=== PATIENT | female | born 1940 | race African-American/Black ===

== ENCOUNTER 2017-02-24 16:05 | Inpatient (IN) | payer OTHER, MEDICAID ==
[~2017-02-24] VITALS: Ht 162.6 cm; Wt 75.0 kg
[~2017-02-24 16:05] MED LIST: BRIM5DRO EACHEYE; DEXT15SY3 PO; DORZ10DR7 EACHEYE; FERR325T41 PO; FOLI-43 PO; LEVO100T9 PO; LIP40 PO; LOTE5DRO5 EACHEYE; NICO1PAT15 TD; OMEP40CA34 PO; RANI150T7 PO; TRAV5DRO4 OP
[2017-02-24] MEDS ORDERED: METHYLPREDNISOLONE SOD SUCC 125 MG/2 ML VIAL IV STA (17:13)
[2017-02-24] MEDS ORDERED: IPRATROPIUM BROMIDE (0.02%) 0.5MG/2.5ML NEB HHN STA (17:13)
[2017-02-24] MEDS ORDERED: ASPIRIN 81MG TABLET PO STA (17:13)
[2017-02-24] MEDS ORDERED: ALBUTEROL (0.083%) 2.5MG/3ML NEB HHN STA (17:13)
[2017-02-24] MEDS ORDERED: LEVOFLOXACIN 750MG PREMIX 150 ML IV ONE (17:15)
[2017-02-24 18:03] LABS: HEMATOCRIT. 36.6 % (36.0-48.0); HEMOGLOBIN. 11.8 g/dL (12.0-16.0); MEAN CORPUSCULAR HEMOGLOBIN 27.2 pg (28.0-32.0); MEAN CORPUSCULAR HGB CONC 32.2 g/dL (31.0-37.0); MEAN CORPUSCULAR VOLUME 84.6 fL (81.0-99.0); MEAN PLATELET VOLUME 9.1 fl (7.4-10.4); PLATELET 148 x1000/uL (130-400); RED BLOOD CELL COUNT 4.33 mill/uL (4.2-5.4); RED CELL DISTRIBUTION WIDTH 15.4 % (11.6-14.6); WHITE BLOOD COUNT 3.1 x1000/uL (4.5-11.0)
[2017-02-24 18:09] LABS: PARTIAL THROMBOPLASTIN TIME 27.3 sec (24.0-34.0); PROTHROMBIN TIME 10.8 sec
[2017-02-24 18:13] LABS: DIFFERENTIAL COMMENT 1
[2017-02-24 18:14] LABS: ALANINE AMINOTRANSFERASE 16 IU/L (13-61); ALBUMIN 3.3 g/dL (3.4-5.0); ANION GAP 11; CALCIUM 8.1 mg/dL (8.5-10.1); CARBON DIOXIDE 32 mEq/L (21-32); CHLORIDE 102 mEq/L (98-107); INDEX HEMOLYSI 1 (1-3); INDEX ICTERIC 1 (1-4); INDEX LIPEMIC 1 (1-3); LIPASE 194 IU/L (73-393); UREA NITROGEN BLOOD 18 mg/dL (7-21)
[2017-02-24 18:16] LABS: eGFR 53 mL/min (>60)
[2017-02-24 18:18] LABS: CREATINE KINASE 176 IU/L (26-192)
[2017-02-24 18:19] LABS: NT PRO B-TYPE NATRIURETIC PEP 134 pg/mL (5-125); TROPONIN I < 0.02 ng/mL (0.00-0.04)
[2017-02-24 18:33] LABS: BG BASE EXCESS -0.6 mmol/L (-2.0-2.0); BG CARBOXYHEMOGLOBIN 0.3 % (0.5-1.5); BG DEOXYHEMOGLOBIN 6.1 % (0.0-5.0); BG FRACTION INSPIRED OXYGEN 28; BG HCO3 ACT 25.6 mmol/L (22.0-26.0); BG METHEMOGLOBIN 0.3 % (0.0-1.5); BG OXYGEN SATURATION 93.9 % (92.0-98.5); BG OXYHEMOGLOBIN 93.3 % (94.0-97.0); BG PCO2 48.9 mmHg (35.0-45.0); BG PH 7.337 (7.350-7.450); BG PO2 74.4 mmHg (75.0-100.0); BG SAMPLE SITE RIGHT BRACHIAL; BG TOTAL HEMOGLOBIN 12.2 g/dL (12.0-18.0); BG VENT MODE NASAL CANNULA
[2017-02-24 19:48] LABS: PLATELET ESTIMATE NORMAL
[2017-02-24 19:49] LABS: ANISOCYTOSIS 1+; HYPOCHROMASIA 1+
[2017-02-24] MEDS ORDERED: FUROSEMIDE 20MG/2ML VIAL IVP ONE (20:15)
[2017-02-25] VITALS (7 sets, daily range): BP systolic 111–146; BP diastolic 58–80
[2017-02-25] MEDS ORDERED: IPRATROPIUM/ALBUTEROL 0.5-3(2.5)MG/3ML NEB INH PRN (01:00)
[2017-02-25] MEDS ORDERED: ONDANSETRON HCL 4MG/2ML VIAL IV PRN (01:00)
[2017-02-25] MEDS ORDERED: CLONIDINE 0.1MG TABLET PO PRN (01:00)
[2017-02-25] MEDS ORDERED: MAGNESIUM/ALUMINUM HYDROXIDE/SIMETHICONE 30ML UDC PO PRN (01:00)
[2017-02-25] MEDS ORDERED: VALS40TA4 PO (01:37)
[2017-02-25] MEDS ORDERED: TIMO15DR12 EACHEYE (01:41)
[2017-02-25] MEDS ORDERED: LATA2.5D2 EACHEYE (01:45)
[2017-02-25 06:04] LABS: CLARITY URINE CLEAR (CLEAR); COLOR URINE YELLOW (YELLOW); GLUCOSE URINE TRACE (NEGATIVE); KETONES URINE NEGATIVE (NEGATIVE); LEUKOCYTE ESTERASE URINE NEGATIVE (NEGATIVE); NITRITE URINE NEGATIVE (NEGATIVE); OCCULT BLOOD URINE NEGATIVE (NEGATIVE); PROTEIN URINE NEGATIVE (NEGATIVE); SPECIFIC GRAVITY URINE 1.013 (1.005-1.030); UROBILINOGEN URINE 0.2 E.U./dL (0.2-1.0)
[2017-02-25 06:05] LABS: BACTERIA URINE NONE SEEN; CALCIUM PHOSPHATE CRYSTALS UR NONE SEEN /lpf; RBC URINE NONE SEEN /hpf (0-2); SQUAMOUS EPITHELIAL CELL URINE NONE SEEN /lpf (RARE/1+); WAXY CASTS URINE NONE SEEN /lpf; WBC URINE NONE SEEN /hpf (0-2); YEAST URINE NONE SEEN
[2017-02-25 06:22] LABS: *AMPHETAMINES SCREEN URINE NEGATIVE (NEGATIVE); *BARBITURATES SCREEN URINE NEGATIVE (NEGATIVE); *BENZODIAZEPINES SCREEN URINE NEGATIVE (NEGATIVE); *COCAINE SCREEN URINE NEGATIVE (NEGATIVE); CANNABINOID URINE SCREEN NEGATIVE (NEGATIVE); ECSTASY MDMA SCREEN URINE NEGATIVE (NEGATIVE); METHADONE URINE SCREEN NEGATIVE (NEGATIVE); OPIATES URINE SCREEN PRESUMTIVE POSITIVE (NEGATIVE); PHENCYCLIDINE URINE SCREEN NEGATIVE (NEGATIVE)
[2017-02-25 06:37] LABS: BASOPHILS % 0.4 % (0.0-2.0); EOSINOPHILS % 0.1 % (0.0-5.0); HEMATOCRIT. 38.6 % (36.0-48.0); HEMOGLOBIN. 12.5 g/dL (12.0-16.0); LYMPHOCYTES % 15.4 % (20.0-50.0); MEAN CORPUSCULAR HEMOGLOBIN 27.4 pg (28.0-32.0); MEAN CORPUSCULAR HGB CONC 32.4 g/dL (31.0-37.0); MEAN CORPUSCULAR VOLUME 84.6 fL (81.0-99.0); MEAN PLATELET VOLUME 9.6 fl (7.4-10.4); MONOCYTES % 3.4 % (2.0-8.0); NEUTROPHILS % 80.7 % (40.0-76.0); PLATELET 157 x1000/uL (130-400); RED BLOOD CELL COUNT 4.56 mill/uL (4.2-5.4); RED CELL DISTRIBUTION WIDTH 15.5 % (11.6-14.6); WHITE BLOOD COUNT 2.6 x1000/uL (4.5-11.0)
[2017-02-25 06:43] LABS: CHLORIDE 102 mEq/L (98-107); INDEX HEMOLYSI 1 (1-3); INDEX ICTERIC 1 (1-4); INDEX LIPEMIC 1 (1-3)
[2017-02-25 07:50] LABS: ANION GAP 15; CALCIUM 8.6 mg/dL (8.5-10.1); CARBON DIOXIDE 28 mEq/L (21-32); CREATINE KINASE 177 IU/L (26-192); CREATINE KINASE MB FRACTION 0.8 ng/mL (0.5-3.6); HDL CHOLESTEROL 59 mg/dL (40-59); LDL CHOLESTEROL 84 mg/dL (5-100); TRIGLYCERIDE 53 mg/dL (0-150); TROPONIN I < 0.02 ng/mL (0.00-0.04); UREA NITROGEN BLOOD 21 mg/dL (7-21); eGFR 53 mL/min (>60)
[2017-02-25] MEDS ORDERED: FUROSEMIDE 20MG/2ML VIAL IV SCH (09:00)
[2017-02-25] MEDS: AZITHROMYCIN 500 MG TABLET PO SCH (09:39)
[2017-02-25] MEDS: ENOXAPARIN 40MG/0.4ML SYR SUBCUT SCH (09:39)
[2017-02-25] MEDS ORDERED: IPRATROPIUM/ALBUTEROL 0.5-3(2.5)MG/3ML NEB HHN PRN (14:30)
[2017-02-25] MEDS ORDERED: LORAZEPAM 2MG/ML CPJ IV PRN (14:45)
[2017-02-25] MEDS ORDERED: NICOTINE 21MG PATCH TD NR (15:00)
[2017-02-25] MEDS ORDERED: DEXTROMETHORPHAN HBR PO PRN (20:00)
[2017-02-25] MEDS ORDERED: GUAIFENESIN 200MG/10ML SUGAR FREE UDC PO PRN (20:15)
[2017-02-25] MEDS ORDERED: FAMOTIDINE 20MG/2ML VIAL IV SCH (21:00)
[2017-02-25] MEDS ORDERED: MEDICATION NOT ON FORMULARY EA (Ranitidine Hcl 150 MG) PO SCH (21:00)
[2017-02-25] MEDS: ATORVASTATIN CALCIUM 40MG TABLET PO SCH (21:26)
[2017-02-25] MEDS: FLUTICASONE PROPIONATE 50MCG/SPRAY BOTTLE BOTHNSTRLS SCH (21:29)
[2017-02-25] MEDS: FAMOTIDINE 20MG/2ML VIAL IV SCH (21:29)
[2017-02-25] MEDS: LATANOPROST 0.005% OPHTH DROPS 2.5ML EACHEYE SCH (21:31)
[2017-02-25 22:02] LABS: CREATINE KINASE 219 IU/L (26-192); CREATINE KINASE MB FRACTION 1.8 ng/mL (0.5-3.6); INDEX HEMOLYSI 2 (1-3); TROPONIN I < 0.02 ng/mL (0.00-0.04)
[2017-02-26] VITALS: BP 118/60
[2017-02-26] MEDS: IPRATROPIUM/ALBUTEROL 0.5-3(2.5)MG/3ML NEB HHN SCH ×4 (01:12→20:11)
[2017-02-26 04:00] VITALS: BP 109/58
[2017-02-26] MEDS ORDERED: PHENYLEPHRINE/SHK LV/MO/PET,WH RECTAL OINT 30GM PR PRN (06:15)
[2017-02-26] MEDS: LEVOTHYROXINE SODIUM 100MCG TABLET PO SCH (06:19)
[2017-02-26 08:00] VITALS: BP 135/66
[2017-02-26] MEDS: MULTIVITAMINS,THER W-MINERALS TABLET PO SCH (08:01)
[2017-02-26] MEDS: FERROUS SULFATE 325MG TABLET PO SCH ×3 (08:01→17:40)
[2017-02-26] MEDS: AZITHROMYCIN 500 MG TABLET PO SCH (08:02)
[2017-02-26] MEDS: FOLIC ACID 1MG TABLET PO SCH (08:02)
[2017-02-26] MEDS: THIAMINE HCL 100MG TABLET PO SCH (08:02)
[2017-02-26] MEDS: FLUTICASONE PROPIONATE 50MCG/SPRAY BOTTLE BOTHNSTRLS SCH ×2 (08:02→20:08)
[2017-02-26] MEDS: DORZOLAMIDE 2% OPHTH 10 ML BOTTLE EACHEYE SCH ×2 (08:03→17:41)
[2017-02-26] MEDS: NICOTINE 21MG PATCH TD SCH (08:03)
[2017-02-26] MEDS: BRIMONIDINE 0.2% OPHTH DROPS 5ML EACHEYE SCH ×2 (08:03→17:41)
[2017-02-26] MEDS: TIMOLOL MALEATE 0.5% OPHTH DROPS 5ML EACHEYE SCH ×2 (08:03→17:42)
[2017-02-26] MEDS: ENOXAPARIN 40MG/0.4ML SYR SUBCUT SCH (08:04)
[2017-02-26] MEDS: BUDESONIDE 0.5MG/2ML NEB HHN SCH ×2 (08:13→20:11)
[2017-02-26] MEDS ORDERED: TRAVOPROST OP SCH (09:00)
[2017-02-26] MEDS ORDERED: VALSARTAN 40 MG PO SCH (09:00)
[2017-02-26] MEDS ORDERED: LOTEPREDNOL ETABONATE EACHEYE SCH (09:00)
[2017-02-26] MEDS ORDERED: MEDICATION NOT ON FORMULARY EA (Omeprazole 40 MG) PO SCH (09:00)
[2017-02-26] MEDS ORDERED: FOLIC ACID 1MG TABLET PO SCH (09:00)
[2017-02-26] MEDS ORDERED: GUAIFENESIN/CODEINE 200-20MG/10ML UDC PO PRN (11:45)
[2017-02-26 12:00] VITALS: BP 114/70
[2017-02-26] MEDS ORDERED: AZITHROMYCIN 500 MG TABLET PO SCH (13:00)
[2017-02-26 16:00] VITALS: BP 122/75
[2017-02-26] MEDS: OSELTAMIVIR PHOSPHATE 6 MG/1 ML PO SCH ×2 (17:40→23:00)
[2017-02-26 20:00] VITALS: BP_SYST 124; BP_SYST 126; BP_DIAS 72; BP_DIAS 88
[2017-02-26] MEDS: FAMOTIDINE 20MG/2ML VIAL IV SCH (20:08)
[2017-02-26] MEDS: LATANOPROST 0.005% OPHTH DROPS 2.5ML EACHEYE SCH (20:08)
[2017-02-26] MEDS: ATORVASTATIN CALCIUM 40MG TABLET PO SCH (20:08)
[2017-02-26] MEDS ORDERED: OSELTAMIVIR 75MG CAPSULE PO SCH (21:00)
[2017-02-26] MEDS: ACETAMINOPHEN 325MG TABLET PO PRN (21:27)
[2017-02-27] VITALS: BP 143/72
[2017-02-27] MEDS: IPRATROPIUM/ALBUTEROL 0.5-3(2.5)MG/3ML NEB HHN SCH ×3 (00:24→13:19)
[2017-02-27] MEDS: ACETAMINOPHEN 325MG TABLET PO PRN ×2 (03:21→13:24)
[2017-02-27 04:00] VITALS: BP 147/87
[2017-02-27] MEDS: LEVOTHYROXINE SODIUM 100MCG TABLET PO SCH (06:05)
[2017-02-27 06:54] LABS: HEMATOCRIT. 38.9 % (36.0-48.0); HEMOGLOBIN. 12.4 g/dL (12.0-16.0); MEAN CORPUSCULAR HEMOGLOBIN 27.3 pg (28.0-32.0); MEAN CORPUSCULAR VOLUME 85.4 fL (81.0-99.0); MEAN PLATELET VOLUME 10.2 fl (7.4-10.4); PLATELET 155 x1000/uL (130-400); RED BLOOD CELL COUNT 4.55 mill/uL (4.2-5.4); RED CELL DISTRIBUTION WIDTH 15.4 % (11.6-14.6); WHITE BLOOD COUNT 3.1 x1000/uL (4.5-11.0)
[2017-02-27 07:09] LABS: CALCIUM 8.7 mg/dL (8.5-10.1)
[2017-02-27 07:23] LABS: DIFFERENTIAL COMMENT 1
[2017-02-27 08:00] VITALS: BP 152/78
[2017-02-27] MEDS: BUDESONIDE 0.5MG/2ML NEB HHN SCH (08:23)
[2017-02-27] MEDS: THIAMINE HCL 100MG TABLET PO SCH (08:25)
[2017-02-27] MEDS: FERROUS SULFATE 325MG TABLET PO SCH ×3 (08:26→17:31)
[2017-02-27] MEDS: AZITHROMYCIN 500 MG TABLET PO SCH (08:26)
[2017-02-27] MEDS: ENOXAPARIN 40MG/0.4ML SYR SUBCUT SCH (08:26)
[2017-02-27] MEDS: MULTIVITAMINS,THER W-MINERALS TABLET PO SCH (08:26)
[2017-02-27] MEDS: FOLIC ACID 1MG TABLET PO SCH (08:26)
[2017-02-27] MEDS: BRIMONIDINE 0.2% OPHTH DROPS 5ML EACHEYE SCH ×2 (08:27→17:32)
[2017-02-27] MEDS: TIMOLOL MALEATE 0.5% OPHTH DROPS 5ML EACHEYE SCH ×2 (08:27→17:32)
[2017-02-27] MEDS: FLUTICASONE PROPIONATE 50MCG/SPRAY BOTTLE BOTHNSTRLS SCH (08:27)
[2017-02-27] MEDS: DORZOLAMIDE 2% OPHTH 10 ML BOTTLE EACHEYE SCH ×2 (08:27→17:32)
[2017-02-27] MEDS: OSELTAMIVIR PHOSPHATE 6 MG/1 ML PO SCH (08:31)
[2017-02-27 12:00] VITALS: BP 135/56
[2017-02-27] MEDS: NICOTINE 21MG PATCH TD SCH (12:18)
[2017-02-27] MEDS ORDERED: HYDROCODONE/ACETAMINOPHEN 5/325MG TABLET PO PRN (13:30)
[2017-02-27 16:00] VITALS: BP 126/56
[2017-02-27] MEDS ORDERED: LOTEMAX EYE EACHEYE SCH (17:00)
[2017-02-27 17:15] VITALS: BP 123/56
[2017-02-27 21:50] LABS: ATYPICAL LYMPHOCYTES 1; PLATELET ESTIMATE NORMAL
== END 2017-02-27 18:54 | disposition home or self-care (01) | DRG 193 ==
LOC: ER 16:05 → 5WST 21:09
PROVIDERS: ADMIT Internal Medicine; ATTEND Internal Medicine
DX: J10.1 Influenza due to other identified influenza virus with other respiratory manifestations (principal); J96.00 Acute respiratory failure, unspecified whether with hypoxia or hypercapnia; R65.10 Systemic inflammatory response syndrome (SIRS) of non-infectious origin without acute organ dysfunction; J44.9 Chronic obstructive pulmonary disease, unspecified; D64.9 Anemia, unspecified; E03.9 Hypothyroidism, unspecified; E78.00 Pure hypercholesterolemia, unspecified; E78.5 Hyperlipidemia, unspecified; F17.210 Nicotine dependence, cigarettes, uncomplicated; F10.10 Alcohol abuse, uncomplicated; M25.562 Pain in left knee; H40.9 Unspecified glaucoma; I11.0 Hypertensive heart disease with heart failure; I50.9 Heart failure, unspecified; Z88.9 Allergy status to unspecified drugs, medicaments and biological substances; Z88.2 Allergy status to sulfonamides; Z88.8 Allergy status to other drugs, medicaments and biological substances; Z88.0 Allergy status to penicillin; Z91.013 Allergy to seafood; Z79.899 Other long term (current) drug therapy
CPT/HCPCS: 36415; 36600; 71010; 80048; 80053; 80061; 80305; 81001; 82375; 82550; 82553; 82805; 83605; 83690; 83880; 84443; 84484; 85025; 85610; 85730; 87040; 87070; 87430; 87804; 93005; 93306; 93970; 94640; 94664; 96365; 96366; 96375; 97162; 99285; J1650; J1940; J1956; J2930; J3490; J7611; J7620; J7626

== ENCOUNTER 2017-05-09 19:34 | Emergency (ER) | payer OTHER, MEDICAID ==
[~2017-05-09] VITALS: Ht 162.6 cm; Wt 75.0 kg
[~2017-05-09 19:34] MED LIST changes: +LATA2.5D2 EACHEYE; +TIMO15DR12 EACHEYE
[2017-05-09 19:37] VITALS: BP 151/76
== END 2017-05-09 22:00 | disposition left against medical advice (07) ==
LOC: ER 19:43
DX: Z53.21 Procedure and treatment not carried out due to patient leaving prior to being seen by health care provider (principal)

== ENCOUNTER 2017-05-26 16:59 | Emergency (ER) | payer OTHER, MEDICAID ==
[~2017-05-26] VITALS: Ht 165.1 cm; Wt 70.0 kg
[2017-05-26] MEDS ORDERED: FLUORESCEIN SODIUM 1MG/STRIP OP ONE (20:30)
[2017-05-26] MEDS ORDERED: TETRACAINE 0.5% OPHTH DROPS 4ML OP ONE (20:30)
[2017-05-26] MEDS ORDERED: TOBRAMYCIN 0.3% OPHTH DROPS 5ML BOTHEYE ONE (21:00)
[2017-05-26] MEDS ORDERED: BALANCED SALT IRRIG SOLN 15ML IO ONE (21:45)
[2017-05-27 01:20] VITALS: BP 127/74
== END 2017-05-27 01:29 | disposition home or self-care (01) ==
LOC: ER 17:08
DX: H10.89 Other conjunctivitis (principal); H40.9 Unspecified glaucoma; D64.9 Anemia, unspecified; Z88.0 Allergy status to penicillin; Z88.2 Allergy status to sulfonamides; Z88.8 Allergy status to other drugs, medicaments and biological substances
CPT/HCPCS: 99284

== ENCOUNTER 2017-06-08 12:55 | Emergency (ER) | payer OTHER, MEDICAID ==
[~2017-06-08] VITALS: Ht 167.6 cm; Wt 70.0 kg
[2017-06-08] MEDS ORDERED: TOBRAMYCIN/DEXAMETH 0.1/0.3% OPHTH SUSP 2.5ML BOTHEYE ONE (14:30)
[2017-06-08 16:29] VITALS: BP 142/67
== END 2017-06-08 16:32 | disposition home or self-care (01) ==
LOC: ER 13:52
DX: H10.9 Unspecified conjunctivitis (principal); H40.9 Unspecified glaucoma; Z88.0 Allergy status to penicillin; Z76.0 Encounter for issue of repeat prescription
CPT/HCPCS: 99283

== ENCOUNTER 2017-11-21 14:49 | Inpatient (IN) | payer MEDICARE, MEDICAID ==
[~2017-11-21] VITALS: Ht 165.1 cm; Wt 76.2 kg
[~2017-11-21 14:49] MED LIST changes: +FERR-71 PO; -FERR325T41 PO; -LOTE5DRO5 EACHEYE; +LTMX5 EACHEYE
[2017-11-21] MEDS ORDERED: ONDANSETRON 4MG ODT PO ONE (17:30)
[2017-11-21] MEDS ORDERED: CYCLOBENZAPRINE 10MG TABLET PO SCH (17:30)
[2017-11-21] MEDS ORDERED: MORPHINE SULFATE 10 MG/ML CPJ IM ONE (17:30)
[2017-11-21] MEDS ORDERED: MORPHINE SULFATE 1MG/ML 1ML INJ SYR(NEO) IV ONE (18:00)
[2017-11-21] MEDS ORDERED: MORPHINE SULFATE 4 MG/ML CPJ (NOT FOR IM USE) IV ONE (18:00)
[2017-11-21] MEDS ORDERED: ONDANSETRON HCL 4MG/2ML VIAL IV ONE (18:00)
[2017-11-21 20:26] LABS: CLARITY URINE CLEAR (CLEAR); COLOR URINE YELLOW (YELLOW); KETONES URINE NEGATIVE (NEGATIVE); LEUKOCYTE ESTERASE URINE NEGATIVE (NEGATIVE); NITRITE URINE NEGATIVE (NEGATIVE); OCCULT BLOOD URINE NEGATIVE (NEGATIVE); PROTEIN URINE NEGATIVE (NEGATIVE); SPECIFIC GRAVITY URINE 1.011 (1.005-1.030)
[2017-11-21] MEDS ORDERED: SODIUM CHLORIDE 0.9% 1,000 ML IV ONE (20:26)
[2017-11-21 21:07] LABS: BASOPHILS % 0.6 % (0.0-2.0); CHLORIDE 108 mEq/L (98-107); HEMATOCRIT. 35.9 % (36.0-48.0); HEMOGLOBIN. 11.4 g/dL (12.0-16.0); MEAN CORPUSCULAR HEMOGLOBIN 26.8 pg (28.0-32.0); MEAN CORPUSCULAR VOLUME 84.4 fL (81.0-99.0); MEAN PLATELET VOLUME 10.2 fl (7.4-10.4); MONOCYTES % 12.9 % (2.0-8.0); NEUTROPHILS % 75.5 % (40.0-76.0); PLATELET 159 x1000/uL (130-400); RED BLOOD CELL COUNT 4.25 mill/uL (4.2-5.4)
[2017-11-21 21:08] LABS: INR 1.1; PROTHROMBIN TIME 11.3 sec (9.4-11.6)
[2017-11-21 21:13] LABS: CARBON DIOXIDE 27 mEq/L (21-32)
[2017-11-21] MEDS ORDERED: IOHEXOL-300 100 ML BOTTLE ONE (22:42)
[2017-11-22] MEDS ORDERED: SODIUM CHLORIDE 0.9% 1,000 ML IV SCH (01:30)
[2017-11-22] MEDS ORDERED: KETOROLAC 30MG/ML VIAL IV ONE (05:45)
[2017-11-22] MEDS ORDERED: ONDANSETRON HCL 4MG/2ML VIAL IV ONE (05:45)
[2017-11-22] MEDS ORDERED: IPRATROPIUM/ALBUTEROL 0.5-3(2.5)MG/3ML NEB INH PRN (09:45)
[2017-11-22] MEDS ORDERED: ACETAMINOPHEN 325MG TABLET PO PRN (09:45)
[2017-11-22] MEDS ORDERED: CLONIDINE 0.1MG TABLET PO PRN (09:45)
[2017-11-22] MEDS ORDERED: MAGNESIUM/ALUMINUM HYDROXIDE/SIMETHICONE 30ML UDC PO PRN (09:45)
[2017-11-22] MEDS ORDERED: ONDANSETRON HCL 4MG/2ML VIAL IV PRN (09:45)
[2017-11-22 10:22] LABS: CHLORIDE 112 mEq/L (98-107)
[2017-11-22 10:28] LABS: CARBON DIOXIDE 27 mEq/L (21-32)
[2017-11-22] MEDS: HYDROCODONE/ACETAMINOPHEN 5/325MG TABLET PO PRN ×2 (14:11→22:42)
[2017-11-22 16:00] VITALS: BP 150/61
[2017-11-22 16:36] VITALS: BP 135/68
[2017-11-22 16:42] VITALS: BP 135/68
[2017-11-22] MEDS: DOCUSATE SODIUM 100MG CAPSULE PO SCH ×2 (17:11→17:38)
[2017-11-22] MEDS: ENOXAPARIN 40MG/0.4ML SYR SUBCUT SCH (17:11)
[2017-11-22] MEDS: CARISOPRODOL 350 MG TABLET PO PRN (17:38)
[2017-11-22 20:00] VITALS: BP 137/50
[2017-11-22] MEDS: BRIMONIDINE 0.2% OPHTH DROPS 5ML BOTHEYE SCH (20:56)
[2017-11-22] MEDS: TIMOLOL MALEATE 0.5% OPHTH DROPS 5ML EACHEYE SCH (20:56)
[2017-11-22] MEDS: DORZOLAMIDE 2% OPHTH 10 ML BOTTLE BOTHEYE SCH (20:57)
[2017-11-23] VITALS: BP 136/56
[2017-11-23 04:00] VITALS: BP 135/45
[2017-11-23] MEDS: CARISOPRODOL 350 MG TABLET PO PRN (06:21)
[2017-11-23] MEDS: LEVOTHYROXINE SODIUM 100MCG TABLET PO SCH (06:21)
[2017-11-23] MEDS: OMEPRAZOLE 20MG CAPSULE EXTENDED RELEASE PO SCH (06:21)
[2017-11-23 06:28] LABS: BASOPHILS % 0.5 % (0.0-2.0); EOSINOPHILS % 1.6 % (0.0-5.0); HEMATOCRIT. 33.7 % (36.0-48.0); HEMOGLOBIN. 10.7 g/dL (12.0-16.0); LYMPHOCYTES % 10.7 % (20.0-50.0); MEAN CORPUSCULAR HEMOGLOBIN 26.6 pg (28.0-32.0); MEAN CORPUSCULAR VOLUME 84.1 fL (81.0-99.0); MEAN PLATELET VOLUME 10.5 fl (7.4-10.4); MONOCYTES % 12.4 % (2.0-8.0); NEUTROPHILS % 74.8 % (40.0-76.0); PLATELET 162 x1000/uL (130-400); RED BLOOD CELL COUNT 4.01 mill/uL (4.2-5.4); RED CELL DISTRIBUTION WIDTH 14.4 % (11.6-14.6)
[2017-11-23 08:20] VITALS: BP 149/55
[2017-11-23] MEDS: FOLIC ACID 1MG TABLET PO SCH (09:48)
[2017-11-23] MEDS: DOCUSATE SODIUM 100MG CAPSULE PO SCH ×2 (09:48→18:41)
[2017-11-23] MEDS: TIMOLOL MALEATE 0.5% OPHTH DROPS 5ML EACHEYE SCH ×2 (09:50→20:01)
[2017-11-23] MEDS: BRIMONIDINE 0.2% OPHTH DROPS 5ML BOTHEYE SCH ×2 (09:50→20:02)
[2017-11-23] MEDS: HYDROCODONE/ACETAMINOPHEN 5/325MG TABLET PO PRN (09:50)
[2017-11-23] MEDS: DORZOLAMIDE 2% OPHTH 10 ML BOTTLE BOTHEYE SCH ×2 (09:50→20:01)
[2017-11-23 12:00] VITALS: BP 137/61
[2017-11-23] MEDS: LACTULOSE 20G/30ML UDC PO PRN (13:19)
[2017-11-23] MEDS: MORPHINE SULFATE 2 MG/ML CPJ (NOT FOR IM USE) IV PRN ×2 (14:30→20:02)
[2017-11-23 16:14] VITALS: BP 106/85
[2017-11-23] MEDS: ENOXAPARIN 40MG/0.4ML SYR SUBCUT SCH (18:41)
[2017-11-23 20:00] VITALS: BP 132/40
[2017-11-23] MEDS: ATORVASTATIN CALCIUM 10MG TABLET PO SCH (20:01)
[2017-11-24] VITALS: BP 149/59
[2017-11-24] MEDS: CARISOPRODOL 350 MG TABLET PO PRN (00:14)
[2017-11-24 01:10] LABS: *AMPHETAMINES SCREEN URINE NEGATIVE (NEGATIVE); *BARBITURATES SCREEN URINE NEGATIVE (NEGATIVE); *BENZODIAZEPINES SCREEN URINE NEGATIVE (NEGATIVE); *COCAINE SCREEN URINE NEGATIVE (NEGATIVE); CANNABINOID URINE SCREEN NEGATIVE (NEGATIVE); METHADONE URINE SCREEN NEGATIVE (NEGATIVE); OPIATES URINE SCREEN PRESUMTIVE POSITIVE (NEGATIVE); PHENCYCLIDINE URINE SCREEN NEGATIVE (NEGATIVE)
[2017-11-24 04:00] VITALS: BP 142/52
[2017-11-24] MEDS: MORPHINE SULFATE 2 MG/ML CPJ (NOT FOR IM USE) IV PRN ×3 (04:12→17:09)
[2017-11-24 06:17] LABS: BASOPHILS % 0.6 % (0.0-2.0); EOSINOPHILS % 1.8 % (0.0-5.0); HEMATOCRIT. 32.9 % (36.0-48.0); HEMOGLOBIN. 10.6 g/dL (12.0-16.0); LYMPHOCYTES % 11.7 % (20.0-50.0); MEAN CORPUSCULAR HEMOGLOBIN 26.8 pg (28.0-32.0); MEAN CORPUSCULAR VOLUME 83.6 fL (81.0-99.0); MEAN PLATELET VOLUME 10.6 fl (7.4-10.4); MONOCYTES % 11.9 % (2.0-8.0); PLATELET 172 x1000/uL (130-400); RED BLOOD CELL COUNT 3.93 mill/uL (4.2-5.4); RED CELL DISTRIBUTION WIDTH 14.5 % (11.6-14.6)
[2017-11-24 08:00] VITALS: BP 138/54
[2017-11-24] MEDS: LEVOTHYROXINE SODIUM 100MCG TABLET PO SCH (08:00)
[2017-11-24] MEDS: OMEPRAZOLE 20MG CAPSULE EXTENDED RELEASE PO SCH (08:00)
[2017-11-24] MEDS: TIMOLOL MALEATE 0.5% OPHTH DROPS 5ML EACHEYE SCH ×2 (09:00→21:19)
[2017-11-24] MEDS: DORZOLAMIDE 2% OPHTH 10 ML BOTTLE BOTHEYE SCH ×2 (09:00→21:19)
[2017-11-24] MEDS: BRIMONIDINE 0.2% OPHTH DROPS 5ML BOTHEYE SCH ×2 (09:00→21:19)
[2017-11-24] MEDS: FOLIC ACID 1MG TABLET PO SCH (09:00)
[2017-11-24] MEDS: LACTULOSE 20G/30ML UDC PO PRN (09:00)
[2017-11-24] MEDS: DOCUSATE SODIUM 100MG CAPSULE PO SCH ×2 (09:00→17:06)
[2017-11-24 12:00] VITALS: BP 145/63
[2017-11-24 16:00] VITALS: BP 153/57
[2017-11-24] MEDS: ENOXAPARIN 40MG/0.4ML SYR SUBCUT SCH (17:06)
[2017-11-24 20:00] VITALS: BP 102/63
[2017-11-24] MEDS: ATORVASTATIN CALCIUM 10MG TABLET PO SCH (21:19)
[2017-11-24] MEDS: HYDROCODONE/ACETAMINOPHEN 5/325MG TABLET PO PRN (21:24)
[2017-11-25] VITALS: BP 124/49
[2017-11-25 04:00] VITALS: BP 131/52
[2017-11-25] MEDS: LEVOTHYROXINE SODIUM 100MCG TABLET PO SCH (06:35)
[2017-11-25] MEDS: OMEPRAZOLE 20MG CAPSULE EXTENDED RELEASE PO SCH (06:35)
[2017-11-25 08:00] VITALS: BP 143/60
[2017-11-25] MEDS: DOCUSATE SODIUM 100MG CAPSULE PO SCH ×2 (08:29→16:41)
[2017-11-25] MEDS: ENOXAPARIN 40MG/0.4ML SYR SUBCUT SCH (08:29)
[2017-11-25] MEDS: FOLIC ACID 1MG TABLET PO SCH (08:29)
[2017-11-25] MEDS: DORZOLAMIDE 2% OPHTH 10 ML BOTTLE BOTHEYE SCH ×2 (08:33→21:02)
[2017-11-25] MEDS: TIMOLOL MALEATE 0.5% OPHTH DROPS 5ML EACHEYE SCH ×2 (08:33→21:02)
[2017-11-25] MEDS: BRIMONIDINE 0.2% OPHTH DROPS 5ML BOTHEYE SCH ×2 (08:33→21:01)
[2017-11-25] MEDS: MORPHINE SULFATE 2 MG/ML CPJ (NOT FOR IM USE) IV PRN ×4 (08:36→21:01)
[2017-11-25] MEDS: CARISOPRODOL 350 MG TABLET PO PRN (11:28)
[2017-11-25] MEDS: HYDROCODONE/ACETAMINOPHEN 5/325MG TABLET PO PRN (11:32)
[2017-11-25 12:00] VITALS: BP 150/62
[2017-11-25 16:46] VITALS: BP 120/75
[2017-11-25 20:00] VITALS: BP 145/53
[2017-11-25] MEDS ORDERED: ATORVASTATIN CALCIUM 10MG TABLET PO SCH (21:00)
[2017-11-25] MEDS: ATORVASTATIN CALCIUM 10MG TABLET PO SCH (21:01)
[2017-11-26] VITALS: BP 122/51
[2017-11-26 01:13] VITALS: BP 122/51
[2017-11-26] MEDS: MORPHINE SULFATE 2 MG/ML CPJ (NOT FOR IM USE) IV PRN ×5 (01:47→21:35)
[2017-11-26 04:00] VITALS: BP 127/55
[2017-11-26] MEDS: LEVOTHYROXINE SODIUM 100MCG TABLET PO SCH (06:23)
[2017-11-26 08:00] VITALS: BP 170/63
[2017-11-26] MEDS: DORZOLAMIDE 2% OPHTH 10 ML BOTTLE BOTHEYE SCH ×2 (08:51→20:43)
[2017-11-26] MEDS: BRIMONIDINE 0.2% OPHTH DROPS 5ML BOTHEYE SCH ×2 (08:52→20:44)
[2017-11-26] MEDS: TIMOLOL MALEATE 0.5% OPHTH DROPS 5ML EACHEYE SCH ×2 (08:52→20:42)
[2017-11-26] MEDS: DOCUSATE SODIUM 100MG CAPSULE PO SCH ×2 (08:53→17:23)
[2017-11-26] MEDS: FOLIC ACID 1MG TABLET PO SCH (08:53)
[2017-11-26] MEDS: FAMOTIDINE 20MG TABLET PO SCH (08:53)
[2017-11-26 16:00] VITALS: BP 150/55
[2017-11-26] MEDS: ENOXAPARIN 40MG/0.4ML SYR SUBCUT SCH (17:23)
[2017-11-26 20:00] VITALS: BP 147/75
[2017-11-26] MEDS: ATORVASTATIN CALCIUM 10MG TABLET PO SCH (20:44)
[2017-11-27] VITALS: BP 134/53
[2017-11-27] MEDS: MORPHINE SULFATE 2 MG/ML CPJ (NOT FOR IM USE) IV PRN ×5 (01:55→21:15)
[2017-11-27 04:00] VITALS: BP 154/62
[2017-11-27] MEDS: LEVOTHYROXINE SODIUM 100MCG TABLET PO SCH (06:19)
[2017-11-27 08:00] VITALS: BP 158/63
[2017-11-27] MEDS: FOLIC ACID 1MG TABLET PO SCH (08:28)
[2017-11-27] MEDS: DOCUSATE SODIUM 100MG CAPSULE PO SCH ×2 (08:28→16:56)
[2017-11-27] MEDS: BRIMONIDINE 0.2% OPHTH DROPS 5ML BOTHEYE SCH ×2 (08:30→20:45)
[2017-11-27] MEDS: TIMOLOL MALEATE 0.5% OPHTH DROPS 5ML EACHEYE SCH ×2 (08:30→20:46)
[2017-11-27] MEDS: DORZOLAMIDE 2% OPHTH 10 ML BOTTLE BOTHEYE SCH ×2 (08:30→20:46)
[2017-11-27] MEDS: FAMOTIDINE 20MG TABLET PO SCH (08:30)
[2017-11-27 12:00] VITALS: BP 149/68
[2017-11-27 16:00] VITALS: BP 168/62
[2017-11-27 17:06] LABS: AMMONIA < 25 uMol/L (<32)
[2017-11-27] MEDS: ENOXAPARIN 40MG/0.4ML SYR SUBCUT SCH (17:30)
[2017-11-27 20:00] VITALS: BP 162/63
[2017-11-27] MEDS: ATORVASTATIN CALCIUM 10MG TABLET PO SCH (20:46)
[2017-11-28] VITALS: BP 127/57
[2017-11-28 04:00] VITALS: BP 135/62
[2017-11-28] MEDS: MORPHINE SULFATE 2 MG/ML CPJ (NOT FOR IM USE) IV PRN ×3 (04:32→20:42)
[2017-11-28 06:21] LABS: BASOPHILS % 0.8 % (0.0-2.0); EOSINOPHILS % 2.4 % (0.0-5.0); HEMATOCRIT. 35.5 % (36.0-48.0); HEMOGLOBIN. 11.2 g/dL (12.0-16.0); LYMPHOCYTES % 10.8 % (20.0-50.0); MEAN CORPUSCULAR HEMOGLOBIN 26.2 pg (28.0-32.0); MEAN CORPUSCULAR VOLUME 82.9 fL (81.0-99.0); MEAN PLATELET VOLUME 10.3 fl (7.4-10.4); MONOCYTES % 13.2 % (2.0-8.0); NEUTROPHILS % 72.8 % (40.0-76.0); PLATELET 270 x1000/uL (130-400); RED BLOOD CELL COUNT 4.28 mill/uL (4.2-5.4); RED CELL DISTRIBUTION WIDTH 13.9 % (11.6-14.6)
[2017-11-28] MEDS: LEVOTHYROXINE SODIUM 100MCG TABLET PO SCH (06:28)
[2017-11-28 07:57] LABS: CARBON DIOXIDE 32 mEq/L (21-32); CHLORIDE 98 mEq/L (98-107)
[2017-11-28 08:00] VITALS: BP 155/57
[2017-11-28] MEDS: DOCUSATE SODIUM 100MG CAPSULE PO SCH ×2 (08:59→17:25)
[2017-11-28] MEDS: DORZOLAMIDE 2% OPHTH 10 ML BOTTLE BOTHEYE SCH ×2 (08:59→20:42)
[2017-11-28] MEDS: BRIMONIDINE 0.2% OPHTH DROPS 5ML BOTHEYE SCH ×2 (08:59→20:42)
[2017-11-28] MEDS: FAMOTIDINE 20MG TABLET PO SCH (08:59)
[2017-11-28] MEDS: FOLIC ACID 1MG TABLET PO SCH (08:59)
[2017-11-28] MEDS: TIMOLOL MALEATE 0.5% OPHTH DROPS 5ML EACHEYE SCH ×2 (08:59→20:42)
[2017-11-28 12:00] VITALS: BP 156/64
[2017-11-28] MEDS ORDERED: MAGNESIUM/ALUMINUM HYDROXIDE/SIMETHICONE 30ML UDC PO PRN (15:30)
[2017-11-28 16:00] VITALS: BP 142/62
[2017-11-28] MEDS: ENOXAPARIN 40MG/0.4ML SYR SUBCUT SCH (17:25)
[2017-11-28 20:00] VITALS: BP 161/59
[2017-11-28] MEDS: ATORVASTATIN CALCIUM 10MG TABLET PO SCH (20:43)
[2017-11-29] VITALS (8 sets, daily range): BP systolic 131–155; BP diastolic 50–89
[2017-11-29] MEDS: MORPHINE SULFATE 2 MG/ML CPJ (NOT FOR IM USE) IV PRN ×4 (04:11→21:39)
[2017-11-29 06:41] LABS: BASOPHILS % 0.8 % (0.0-2.0); EOSINOPHILS % 2.4 % (0.0-5.0); HEMATOCRIT. 36.2 % (36.0-48.0); HEMOGLOBIN. 11.7 g/dL (12.0-16.0); LYMPHOCYTES % 12.2 % (20.0-50.0); MEAN CORPUSCULAR HEMOGLOBIN 26.6 pg (28.0-32.0); MEAN CORPUSCULAR VOLUME 82.7 fL (81.0-99.0); MEAN PLATELET VOLUME 10.1 fl (7.4-10.4); MONOCYTES % 11.9 % (2.0-8.0); NEUTROPHILS % 72.7 % (40.0-76.0); PLATELET 288 x1000/uL (130-400); RED BLOOD CELL COUNT 4.38 mill/uL (4.2-5.4); RED CELL DISTRIBUTION WIDTH 14.2 % (11.6-14.6)
[2017-11-29] MEDS: LEVOTHYROXINE SODIUM 100MCG TABLET PO SCH (06:59)
[2017-11-29] MEDS: FAMOTIDINE 20MG TABLET PO SCH (08:36)
[2017-11-29] MEDS: DOCUSATE SODIUM 100MG CAPSULE PO SCH ×2 (08:36→17:13)
[2017-11-29] MEDS: FOLIC ACID 1MG TABLET PO SCH (08:37)
[2017-11-29] MEDS: TIMOLOL MALEATE 0.5% OPHTH DROPS 5ML EACHEYE SCH ×2 (08:37→21:38)
[2017-11-29] MEDS: DORZOLAMIDE 2% OPHTH 10 ML BOTTLE BOTHEYE SCH ×2 (08:37→21:38)
[2017-11-29] MEDS: BRIMONIDINE 0.2% OPHTH DROPS 5ML BOTHEYE SCH ×2 (08:37→21:38)
[2017-11-29 08:52] LABS: CARBON DIOXIDE 30 mEq/L (21-32); CHLORIDE 97 mEq/L (98-107)
[2017-11-29] MEDS ORDERED: LACTULOSE 20G/30ML UDC PO NR (14:00)
[2017-11-29] MEDS: ENOXAPARIN 40MG/0.4ML SYR SUBCUT SCH (17:14)
[2017-11-29] MEDS: ATORVASTATIN CALCIUM 10MG TABLET PO SCH (21:38)
[2017-11-30] MEDS: LACTULOSE 20G/30ML UDC PO PRN (03:16)
[2017-11-30] MEDS: MORPHINE SULFATE 2 MG/ML CPJ (NOT FOR IM USE) IV PRN (03:17)
[2017-11-30 04:00] VITALS: BP 130/71
[2017-11-30] MEDS: CARISOPRODOL 350 MG TABLET PO PRN (06:15)
[2017-11-30] MEDS: LEVOTHYROXINE SODIUM 100MCG TABLET PO SCH (06:16)
[2017-11-30 08:00] VITALS: BP 131/50
[2017-11-30] MEDS: DORZOLAMIDE 2% OPHTH 10 ML BOTTLE BOTHEYE SCH (08:04)
[2017-11-30] MEDS: FOLIC ACID 1MG TABLET PO SCH (08:04)
[2017-11-30] MEDS: BRIMONIDINE 0.2% OPHTH DROPS 5ML BOTHEYE SCH (08:04)
[2017-11-30] MEDS: DOCUSATE SODIUM 100MG CAPSULE PO SCH (08:04)
[2017-11-30] MEDS: TIMOLOL MALEATE 0.5% OPHTH DROPS 5ML EACHEYE SCH (08:04)
[2017-11-30] MEDS: FAMOTIDINE 20MG TABLET PO SCH (08:04)
[2017-11-30] MEDS ORDERED: HYDROCODONE/ACETAMINOPHEN 5/325MG TABLET PO PRN (09:45)
[2017-11-30 12:00] VITALS: BP 127/49
== END 2017-11-30 13:05 | disposition home health service (06) | DRG 551 ==
LOC: ER 15:25 → 8WST 11-22 13:54 → ENRESERV 11-22 15:23 → CANBEDREQ 11-22 16:03
PROVIDERS: ADMIT Internal Medicine; ATTEND Internal Medicine
DX: M48.061 Spinal stenosis, lumbar region without neurogenic claudication (principal); G82.50 Quadriplegia, unspecified; M48.02 Spinal stenosis, cervical region; N31.9 Neuromuscular dysfunction of bladder, unspecified; E03.9 Hypothyroidism, unspecified; I10 Essential (primary) hypertension; E78.5 Hyperlipidemia, unspecified; G89.4 Chronic pain syndrome; H40.9 Unspecified glaucoma; K21.9 Gastro-esophageal reflux disease without esophagitis; R26.9 Unspecified abnormalities of gait and mobility; K56.41 Fecal impaction; M17.0 Bilateral primary osteoarthritis of knee; M54.30 Sciatica, unspecified side; M54.2 Cervicalgia; R33.9 Retention of urine, unspecified; Z79.899 Other long term (current) drug therapy; Z82.49 Family history of ischemic heart disease and other diseases of the circulatory system; Z87.891 Personal history of nicotine dependence; Z98.49 Cataract extraction status, unspecified eye
CPT/HCPCS: 36415; 70551; 72100; 72141; 72146; 72148; 73630; 74177; 80048; 80053; 80061; 80305; 81003; 82140; 83690; 84443; 85025; 85610; 92523; 93970; 94664; 96374; 96375; 97116; 97162; 97166; 97530; 99285; C1893; J1650; J1885; J2270; J2405; J7030; J7620; Q9967; A4315

== ENCOUNTER 2018-07-23 06:13 | Emergency (ER) | payer MEDICARE, MEDICAID ==
[~2018-07-23] VITALS: Ht 167.6 cm; Wt 72.0 kg
[~2018-07-23 06:13] MED LIST changes: -DORZ10DR7 EACHEYE; +DORZ10DR8 EACHEYE
[2018-07-23] MEDS ORDERED: KETOROLAC 15MG/ML VIAL IM ONE (07:00)
[2018-07-23 08:35] VITALS: BP 146/76
== END 2018-07-23 08:45 | disposition home or self-care (01) ==
LOC: ER 06:35
DX: M25.532 Pain in left wrist (principal); M19.90 Unspecified osteoarthritis, unspecified site; E03.9 Hypothyroidism, unspecified; M85.88 Other specified disorders of bone density and structure, other site; R03.0 Elevated blood-pressure reading, without diagnosis of hypertension; Z88.2 Allergy status to sulfonamides; Z88.8 Allergy status to other drugs, medicaments and biological substances; Z88.0 Allergy status to penicillin; Z91.013 Allergy to seafood; W22.8XXA Striking against or struck by other objects, initial encounter; Y93.89 Activity, other specified; Y92.018 Other place in single-family (private) house as the place of occurrence of the external cause
CPT/HCPCS: 29125; 73090; 73110; 96372; 99284; J1885

== ENCOUNTER 2018-07-31 09:29 | Day surgery (SDC) | payer MEDICARE, MEDICAID ==
[~2018-07-31] VITALS: Ht 162.6 cm; Wt 72.6 kg
[2018-07-31] MEDS ORDERED: LACTATED RINGERS 1,000 ML IV SCH (10:15)
[2018-07-31] MEDS ORDERED: TOBRAMYCIN 0.3% EACHEYE (13:03)
[2018-07-31] MEDS ORDERED: KETO5DRO80 EACHEYE (13:03)
[2018-07-31] MEDS ORDERED: PRED5DRO EACHEYE (13:03)
[2018-07-31] MEDS ORDERED: LORA10TA7 PO (13:03)
[2018-07-31] MEDS ORDERED: MIDAZOLAM HCL 2 MG/2 ML VIAL ONE (14:08)
[2018-07-31] MEDS ORDERED: PROPOFOL 200MG/20ML VIAL IV ONE (14:08)
[2018-07-31] MEDS ORDERED: FENTANYL CITRATE/PF 50MCG/ML 2ML VIAL ONE (14:08)
[2018-07-31] MEDS ORDERED: OFLOXACIN 0.3% OPHTH SOLN 5ML ONE (14:53)
[2018-07-31] MEDS ORDERED: TETRACAINE 0.5% OPHTH DROPS 4ML ONE (14:53)
[2018-07-31] MEDS ORDERED: ACETYLCHOLINE CHLORIDE INTRAOCULAR SOLUTION 1:100 ELECTROLYTE DILUENT IO ONE (14:53)
[2018-07-31] MEDS ORDERED: BALANCED SALT IRRIG SOLN 15ML ONE (14:53)
[2018-07-31] MEDS ORDERED: PREDNISOLONE ACETATE 1% OPHTH DROPS 1ML ONE (14:53)
[2018-07-31] MEDS ORDERED: LIDOCAINE HCL 2%/EPINEPHRINE 1:100,000 20 ML VIAL INFIL ONE (14:53)
[2018-07-31] MEDS ORDERED: BUPIVACAINE HCL/PF 0.75% (7.5MG/ML) 10ML ONE (14:53)
[2018-07-31] MEDS ORDERED: NEO/POLYMYX B SULF/DEXAMETH OPHTH OINT 3.5GM ONE (14:53)
[2018-07-31] MEDS ORDERED: ONDANSETRON HCL 4MG/2ML INJ IV PRN (15:30)
[2018-07-31] MEDS ORDERED: KETOROLAC 30MG/ML VIAL IV PRN (15:30)
== END 2018-07-31 16:10 | disposition home or self-care (01) ==
LOC: OR 09:29
PROVIDERS: ATTEND Ophthalmology
DX: H40.89 Other specified glaucoma (principal); E03.9 Hypothyroidism, unspecified; M19.90 Unspecified osteoarthritis, unspecified site; I10 Essential (primary) hypertension; E78.5 Hyperlipidemia, unspecified; E66.9 Obesity, unspecified; K21.9 Gastro-esophageal reflux disease without esophagitis; F17.210 Nicotine dependence, cigarettes, uncomplicated; Z79.899 Other long term (current) drug therapy; Z88.8 Allergy status to other drugs, medicaments and biological substances; Z88.2 Allergy status to sulfonamides; Z91.013 Allergy to seafood; Z98.890 Other specified postprocedural states; Z88.0 Allergy status to penicillin
CPT/HCPCS: 66170; J2250; J3010; J3490; J7120; J2704

== ENCOUNTER 2018-09-14 05:36 | Day surgery (SDC) | payer MEDICARE, MEDICAID ==
[~2018-09-14] VITALS: Ht 162.6 cm; Wt 75.7 kg
[~2018-09-14 05:36] MED LIST changes: -DORZ10DR8 EACHEYE; -FERR-71 PO; +KETO5DRO80 EACHEYE; -LIP40 PO; +LORA10TA7 PO; -NICO1PAT15 TD; -OMEP40CA34 PO; +PRED5DRO EACHEYE; -RANI150T7 PO; +TOBRAMYCIN 0.3% EACHEYE
[2018-09-14] MEDS ORDERED: LACTATED RINGERS 1,000 ML IV SCH (06:40)
[2018-09-14] MEDS ORDERED: MIDAZOLAM HCL 2 MG/2 ML VIAL ONE ×2 (07:43→07:59)
[2018-09-14] MEDS ORDERED: PROPOFOL 200MG/20ML VIAL IV ONE ×2 (07:43→08:55)
[2018-09-14] MEDS ORDERED: LIDOCAINE HCL/PF 1% 10 MG/ML 5ML VIAL ONE (07:48)
[2018-09-14] MEDS ORDERED: SUCCINYLCHOLINE CHLORIDE 200MG/10ML IV ONE ×2 (07:48→08:55)
[2018-09-14] MEDS ORDERED: GENTAMICIN 0.3% OPHTH DROPS 5ML ONE (08:27)
[2018-09-14] MEDS ORDERED: METOCLOPRAMIDE HCL 10MG/2ML VIAL ONE (08:31)
[2018-09-14] MEDS ORDERED: ONDANSETRON HCL 4MG/2ML INJ ONE (08:31)
[2018-09-14] MEDS ORDERED: SODIUM CHLORIDE 0.9% 1,000 ML IV ONE (08:55)
[2018-09-14] MEDS ORDERED: ONDANSETRON HCL 4MG/2ML INJ IV PRN (09:00)
[2018-09-14] MEDS ORDERED: IBUPROFEN 600MG TABLET PO SCH (09:00)
[2018-09-14] MEDS ORDERED: LIDOCAINE HCL/PF 2% 20 MG/ML 10ML VIAL ONE (14:23)
[2018-09-14] MEDS ORDERED: BALANCED SALT IRRIG SOLN 15ML ONE (14:23)
[2018-09-14] MEDS ORDERED: LIDOCAINE HCL 2%/EPINEPHRINE 1:100,000 20 ML VIAL INFIL ONE (14:23)
[2018-09-14] MEDS ORDERED: CIPROFLOXACIN 0.3% OPHTH SOLN 2.5ML ONE (14:23)
[2018-09-14] MEDS ORDERED: TETRACAINE 0.5% OPHTH DROPS 4ML ONE (14:23)
[2018-09-14] MEDS ORDERED: BUPIVACAINE HCL/PF 0.75% (7.5MG/ML) 10ML ONE (14:23)
[2018-09-14] MEDS ORDERED: ACETYLCHOLINE CHLORIDE INTRAOCULAR SOLUTION 1:100 ELECTROLYTE DILUENT IO ONE (14:23)
[2018-09-14] MEDS ORDERED: PREDNISOLONE ACETATE 1% OPHTH DROPS 1ML ONE (14:23)
[2018-09-14] MEDS ORDERED: NEO/POLYMYX B SULF/DEXAMETH OPHTH OINT 3.5GM ONE (14:23)
== END 2018-09-14 10:45 | disposition home or self-care (01) ==
LOC: OR 05:36
PROVIDERS: ATTEND Ophthalmology
DX: H40.89 Other specified glaucoma (principal); I10 Essential (primary) hypertension; K21.9 Gastro-esophageal reflux disease without esophagitis; E78.5 Hyperlipidemia, unspecified; E03.9 Hypothyroidism, unspecified; F17.210 Nicotine dependence, cigarettes, uncomplicated; M19.90 Unspecified osteoarthritis, unspecified site; Z79.899 Other long term (current) drug therapy; Z98.890 Other specified postprocedural states; Z88.8 Allergy status to other drugs, medicaments and biological substances; Z88.0 Allergy status to penicillin; Z88.2 Allergy status to sulfonamides; Z91.013 Allergy to seafood
CPT/HCPCS: 66170; J0330; J2250; J2405; J2765; J3490; J2704; J7120

== ENCOUNTER 2019-04-15 14:35 | Inpatient (IN) | payer MEDICARE, MEDICAID ==
[~2019-04-15] VITALS: Ht 162.6 cm; Wt 78.0 kg
[~2019-04-15 14:35] MED LIST changes: -DEXT15SY3 PO; -TOBRAMYCIN 0.3% EACHEYE
[2019-04-15] MEDS ORDERED: VISCOUS LIDOCAINE 2% 15 ML UDC PO ONE (15:15)
[2019-04-15] MEDS ORDERED: MAGNESIUM/ALUMINUM HYDROXIDE/SIMETHICONE 30ML UDC PO ONE (15:15)
[2019-04-15] MEDS ORDERED: ASPIRIN 81MG TABLET PO ONE (15:15)
[2019-04-15] MEDS ORDERED: NITROGLYCERIN OINT 1GM/INCH UDPKT TD ONE (15:15)
[2019-04-15 15:33] LABS: BASOPHILS % 1.1 % (0.0-2.0); EOSINOPHILS % 4.7 % (0.0-5.0); HEMATOCRIT. 32.7 % (36.0-48.0); HEMOGLOBIN. 10.5 g/dL (12.0-16.0); LYMPHOCYTES % 25.5 % (20.0-50.0); MEAN CORPUSCULAR HEMOGLOBIN 26.1 pg (28.0-32.0); MEAN CORPUSCULAR VOLUME 81.4 fL (81.0-99.0); MEAN PLATELET VOLUME 9.6 fl (7.4-10.4); MONOCYTES % 11.3 % (2.0-8.0); NEUTROPHILS % 57.4 % (40.0-76.0); PLATELET 191 x1000/uL (130-400); RED BLOOD CELL COUNT 4.02 mill/uL (4.2-5.4); RED CELL DISTRIBUTION WIDTH 16.1 % (11.6-14.6)
[2019-04-15 15:49] LABS: CHLORIDE 105 mEq/L (98-107)
[2019-04-15 21:03] VITALS: BP 136/53
[2019-04-15 22:00] VITALS: BP 136/53
[2019-04-15] MEDS ORDERED: MORPHINE SULFATE 2 MG/ML CPJ (NOT FOR IM USE) IV PRN (23:45)
[2019-04-16] VITALS: BP 135/57
[2019-04-16 04:00] VITALS: BP 144/79
[2019-04-16 06:45] LABS: BASOPHILS % 1.2 % (0.0-2.0); EOSINOPHILS % 4.4 % (0.0-5.0); HEMATOCRIT. 34.3 % (36.0-48.0); LYMPHOCYTES % 21.7 % (20.0-50.0); MEAN CORPUSCULAR VOLUME 80.8 fL (81.0-99.0); MEAN PLATELET VOLUME 10.3 fl (7.4-10.4); MONOCYTES % 13.5 % (2.0-8.0); NEUTROPHILS % 59.2 % (40.0-76.0); PLATELET 208 x1000/uL (130-400); RED BLOOD CELL COUNT 4.24 mill/uL (4.2-5.4); RED CELL DISTRIBUTION WIDTH 15.9 % (11.6-14.6)
[2019-04-16 06:51] LABS: CHLORIDE 104 mEq/L (98-107)
[2019-04-16 06:59] LABS: LDL CHOLESTEROL 102 mg/dL (5-100)
[2019-04-16 07:01] LABS: HDL CHOLESTEROL 44 mg/dL (40-59)
[2019-04-16 08:00] VITALS: BP 101/47
[2019-04-16] MEDS ORDERED: METOPROLOL TARTRATE 25MG TABLET PO SCH ×2 (09:00→21:00)
[2019-04-16] MEDS ORDERED: ASPIRIN 325MG EC TABLET PO SCH (09:00)
[2019-04-16 12:00] VITALS: BP 125/61
[2019-04-16 16:00] VITALS: BP 135/50
== END 2019-04-16 18:27 | disposition home or self-care (01) | DRG 392 ==
LOC: ER 14:35 → 7WST 16:52 → EDBEDREQ 16:54 → EDBEDREQTM 16:54 → ENRESERV 20:00
PROVIDERS: ADMIT Internal Medicine; ATTEND Internal Medicine
DX: K21.9 Gastro-esophageal reflux disease without esophagitis (principal); I10 Essential (primary) hypertension; E78.00 Pure hypercholesterolemia, unspecified; E78.5 Hyperlipidemia, unspecified; Z87.891 Personal history of nicotine dependence; D64.9 Anemia, unspecified; E03.9 Hypothyroidism, unspecified; M48.061 Spinal stenosis, lumbar region without neurogenic claudication; H40.9 Unspecified glaucoma; Z88.0 Allergy status to penicillin; Z88.2 Allergy status to sulfonamides; Z91.013 Allergy to seafood; Z79.899 Other long term (current) drug therapy; Z82.49 Family history of ischemic heart disease and other diseases of the circulatory system
CPT/HCPCS: 36415; 71045; 80048; 80061; 83605; 83880; 84443; 84484; 93005; 93306; 99285; J2270

== ENCOUNTER 2019-05-25 09:12 | Inpatient (IN) | payer MEDICARE, MEDICAID ==
[~2019-05-25] VITALS: Ht 170.2 cm; Wt 80.1 kg
[2019-05-25] MEDS ORDERED: DEXAMETHASONE 10 MG/ML VIAL IV ONE (10:30)
[2019-05-25] MEDS ORDERED: KETOROLAC 30MG/ML VIAL IV STA (10:30)
[2019-05-25] MEDS ORDERED: CLINDAMYCIN 600 MG in DEXTROSE 5% WATER 50 ML IV ONE (10:30)
[2019-05-25 11:18] LABS: EOSINOPHILS % 4.5 % (0.0-5.0); HEMATOCRIT. 31.7 % (36.0-48.0); HEMOGLOBIN. 10.1 g/dL (12.0-16.0); LYMPHOCYTES % 19.4 % (20.0-50.0); MEAN CORPUSCULAR HEMOGLOBIN 25.5 pg (28.0-32.0); MEAN CORPUSCULAR VOLUME 79.8 fL (81.0-99.0); MEAN PLATELET VOLUME 9.6 fl (7.4-10.4); NEUTROPHILS % 65.1 % (40.0-76.0); PLATELET 208 x1000/uL (130-400); RED BLOOD CELL COUNT 3.97 mill/uL (4.2-5.4); RED CELL DISTRIBUTION WIDTH 16.3 % (11.6-14.6)
[2019-05-25 11:24] LABS: CHLORIDE 106 mEq/L (98-107)
[2019-05-25] MEDS ORDERED: ACETAMINOPHEN 325MG TABLET PO PRN (14:45)
[2019-05-25] MEDS ORDERED: ONDANSETRON HCL 4MG/2ML INJ IV PRN (14:45)
[2019-05-25] MEDS ORDERED: CLINDAMYCIN 600 MG in DEXTROSE 5% WATER 50 ML IV SCH (14:45)
[2019-05-25] MEDS ORDERED: HYDROCODONE/ACETAMINOPHEN 5/325MG TABLET PO PRN (14:45)
[2019-05-25 22:00] VITALS: BP 168/71
[2019-05-25] MEDS: AMLODIPINE 5MG TABLET PO SCH (22:43)
[2019-05-26] VITALS (7 sets, daily range): BP systolic 119–168; BP diastolic 49–71
[2019-05-26] MEDS: CLINDAMYCIN 600 MG in DEXTROSE 5% WATER 50 ML IV SCH ×2 (00:45→06:45)
[2019-05-26] MEDS: MORPHINE SULFATE 2 MG/ML CPJ (NOT FOR IM USE) IV PRN ×5 (00:46→22:30)
[2019-05-26 07:36] LABS: BASOPHILS % 0.1 % (0.0-2.0); HEMOGLOBIN. 10.1 g/dL (12.0-16.0); LYMPHOCYTES % 7.9 % (20.0-50.0); MEAN CORPUSCULAR HEMOGLOBIN 25.2 pg (28.0-32.0); MEAN CORPUSCULAR VOLUME 79.8 fL (81.0-99.0); MEAN PLATELET VOLUME 10.3 fl (7.4-10.4); MONOCYTES % 5.1 % (2.0-8.0); NEUTROPHILS % 86.9 % (40.0-76.0); PLATELET 230 x1000/uL (130-400); RED CELL DISTRIBUTION WIDTH 15.9 % (11.6-14.6)
[2019-05-26] MEDS: AMLODIPINE 5MG TABLET PO SCH (10:16)
[2019-05-26] MEDS: CLINDAMYCIN 600MG PREMIX 50 ML IV SCH ×2 (15:07→22:27)
[2019-05-26 21:02] LABS: CLARITY URINE CLEAR (CLEAR); COLOR URINE YELLOW (YELLOW); KETONES URINE NEGATIVE (NEGATIVE); LEUKOCYTE ESTERASE URINE NEGATIVE (NEGATIVE); NITRITE URINE NEGATIVE (NEGATIVE); OCCULT BLOOD URINE NEGATIVE (NEGATIVE); PROTEIN URINE NEGATIVE (NEGATIVE); SPECIFIC GRAVITY URINE 1.009 (1.005-1.030)
[2019-05-27] VITALS (7 sets, daily range): BP systolic 106–150; BP diastolic 40–93
[2019-05-27] MEDS: MORPHINE SULFATE 2 MG/ML CPJ (NOT FOR IM USE) IV PRN (02:48)
[2019-05-27] MEDS: CLINDAMYCIN 600MG PREMIX 50 ML IV SCH ×2 (05:12→15:17)
[2019-05-27] MEDS: AMLODIPINE 5MG TABLET PO SCH (08:06)
== END 2019-05-27 20:26 | disposition home or self-care (01) | DRG 603 ==
LOC: ER 09:12 → 5WST 14:22 → EDBEDREQ 14:30 → EDBEDREQSVC 14:31 → ENRESERV 16:46 → CANRESERV 16:46 → EDBEDREQSVC 17:18 → ENRESERV 19:31
PROVIDERS: ADMIT Internal Medicine; ATTEND Internal Medicine
DX: L03.211 Cellulitis of face (principal); I10 Essential (primary) hypertension; E78.5 Hyperlipidemia, unspecified; M48.061 Spinal stenosis, lumbar region without neurogenic claudication; D64.9 Anemia, unspecified; E03.9 Hypothyroidism, unspecified; H40.9 Unspecified glaucoma; R13.10 Dysphagia, unspecified; J44.9 Chronic obstructive pulmonary disease, unspecified; E66.9 Obesity, unspecified; E78.00 Pure hypercholesterolemia, unspecified; Z82.49 Family history of ischemic heart disease and other diseases of the circulatory system; Z88.2 Allergy status to sulfonamides; Z68.27 Body mass index [BMI] 27.0-27.9, adult; Z79.899 Other long term (current) drug therapy; Z88.0 Allergy status to penicillin; Z88.8 Allergy status to other drugs, medicaments and biological substances; Z88.1 Allergy status to other antibiotic agents
CPT/HCPCS: 36415; 70486; 71045; 80048; 93005; 96365; 96375; 99285; C1893; J1100; J1885; J2270; J3490; J7060

== ENCOUNTER 2019-08-26 15:05 | Emergency (ER) | payer MEDICARE, MEDICAID ==
[~2019-08-26] VITALS: Ht 162.6 cm; Wt 64.0 kg
[~2019-08-26 15:05] MED LIST changes: -BRIM5DRO EACHEYE; -KETO5DRO80 EACHEYE; -LATA2.5D2 EACHEYE; -LTMX5 EACHEYE; +OMEP20CA5 MT; -PRED5DRO EACHEYE; -TIMO15DR12 EACHEYE; -TRAV5DRO4 OP
[2019-08-26] MEDS ORDERED: HYDROCODONE/ACETAMINOPHEN 5/325MG TABLET PO ONE ×2 (18:30→22:30)
[2019-08-26 23:14] VITALS: BP 138/46
== END 2019-08-26 23:14 | disposition home or self-care (01) ==
LOC: ER 15:05
DX: M25.531 Pain in right wrist (principal); J44.9 Chronic obstructive pulmonary disease, unspecified; Z88.8 Allergy status to other drugs, medicaments and biological substances; Z88.2 Allergy status to sulfonamides; Z88.0 Allergy status to penicillin; Z91.013 Allergy to seafood; Z87.81 Personal history of (healed) traumatic fracture
CPT/HCPCS: 73090; 73110; 73130; 99283

== ENCOUNTER 2020-06-09 16:17 | Inpatient (IN) | payer MEDICARE, MEDICAID ==
[~2020-06-09] VITALS: Ht 162.6 cm; Wt 74.8 kg
[~2020-06-09 16:17] MED LIST changes: +OMEP20CA14 MT; -OMEP20CA5 MT
[2020-06-09 19:08] LABS: HEMATOCRIT. 21.3 % (36.0-48.0); MEAN CORPUSCULAR VOLUME 63.4 fL (81.0-99.0); MEAN PLATELET VOLUME 9.3 fl (7.4-10.4); PLATELET 237 x1000/uL (130-400); RED BLOOD CELL COUNT 3.36 mill/uL (4.2-5.4); RED CELL DISTRIBUTION WIDTH 23.4 % (11.6-14.6)
[2020-06-09 19:11] LABS: CHLORIDE 106 mEq/L (98-107)
[2020-06-09 19:14] LABS: INR 1.1; PROTHROMBIN TIME 11.3 sec (9.6-11.0)
[2020-06-09 19:19] LABS: HEMOGLOBIN. 6.1 g/dL (12.0-16.0)
[2020-06-09 19:47] LABS: PLATELET ESTIMATE NORMAL
[2020-06-09 22:25] VITALS: BP 144/71
[2020-06-09 23:11] LABS: BG BASE EXCESS -8.7 mmol/L (-2.0-2.0); BG CARBOXYHEMOGLOBIN 0.2 % (0.5-1.5); BG DEOXYHEMOGLOBIN 20.7 % (0.0-5.0); BG FRACTION INSPIRED OXYGEN 100; BG HCO3 ACT 25.1 mmol/L (22.0-26.0); BG METHEMOGLOBIN 0.4 % (0.0-1.5); BG OXYGEN SATURATION 79.2 % (92.0-98.5); BG OXYHEMOGLOBIN 78.7 % (94.0-97.0); BG PCO2 123.8 mmHg (35.0-45.0); BG PH 6.924 (7.350-7.450); BG PO2 68.1 mmHg (75.0-100.0); BG SAMPLE SITE RIGHT RADIAL; BG TOTAL HEMOGLOBIN 9.9 g/dL (12.0-18.0); BG VENT MODE MASK - NRB
[2020-06-09] MEDS ORDERED: IPRATROPIUM/ALBUTEROL 0.5-3(2.5)MG/3ML NEB HHN PRN (23:45)
[2020-06-09] MEDS ORDERED: SUCCINYLCHOLINE CHLORIDE 200MG/10ML IV ONE (23:45)
[2020-06-09] MEDS ORDERED: ETOMIDATE 2MG/ML 10ML VIAL IV ONE (23:45)
[2020-06-10] VITALS (91 sets, daily range): BP systolic 65–179; BP diastolic 28–104
[2020-06-10] MEDS ORDERED: ATOR40TA70 PO (00:26)
[2020-06-10] MEDS ORDERED: HYDR-4005 PO (00:26)
[2020-06-10] MEDS ORDERED: METO25TA6 PO (00:26)
[2020-06-10] MEDS ORDERED: CEFEPIME 1,000 MG in DEXTROSE 5% WATER 50 ML IV SCH (00:45)
[2020-06-10 00:48] LABS: BG BASE EXCESS -7.6 mmol/L (-2.0-2.0); BG CARBOXYHEMOGLOBIN 0.4 % (0.5-1.5); BG DEOXYHEMOGLOBIN 2.1 % (0.0-5.0); BG FRACTION INSPIRED OXYGEN 100; BG HCO3 ACT 21.4 mmol/L (22.0-26.0); BG METHEMOGLOBIN 0.6 % (0.0-1.5); BG OXYGEN SATURATION 97.9 % (92.0-98.5); BG OXYHEMOGLOBIN 96.9 % (94.0-97.0); BG PH 7.136 (7.350-7.450); BG PO2 130.8 mmHg (75.0-100.0); BG SAMPLE SITE RIGHT RADIAL; BG TIDAL VOLUME(mL) 500 mL; BG TOTAL HEMOGLOBIN 8.8 g/dL (12.0-18.0); BG VENT MODE VENT - A/C; BG VENT RATE 18 set
[2020-06-10] MEDS: DEXT 5%/0.45% NACL 1000ML 1,000 ML IV SCH ×2 (01:55→14:20)
[2020-06-10] MEDS: METRONIDAZOLE 500 MG PREMIX 100 ML IV SCH ×2 (01:56→11:25)
[2020-06-10] MEDS: PROPOFOL 10MG/ML 100ML 100 ML IV PRN ×2 (01:58→06:35)
[2020-06-10] MEDS ORDERED: NOREPINEPHRINE 16 MG in DEXT 5% WATER 234 ML IV PRN (02:15)
[2020-06-10] MEDS: MEROPENEM 500 MG in SODIUM CHLORIDE 0.9% 50 ML IV SCH ×2 (04:07→18:51)
[2020-06-10 05:33] LABS: HEMATOCRIT. 24.6 % (36.0-48.0); MEAN CORPUSCULAR HEMOGLOBIN 19.1 pg (28.0-32.0); MEAN CORPUSCULAR VOLUME 67.8 fL (81.0-99.0); MEAN PLATELET VOLUME 9.1 fl (7.4-10.4); PLATELET 186 x1000/uL (130-400); RED BLOOD CELL COUNT 3.63 mill/uL (4.2-5.4); RED CELL DISTRIBUTION WIDTH 23.9 % (11.6-14.6)
[2020-06-10] MEDS ORDERED: METHYLPREDNISOLONE SOD SUCC 125 MG/2 ML VIAL IV SCH (06:00)
[2020-06-10 06:15] LABS: HEMOGLOBIN. 6.9 g/dL (12.0-16.0)
[2020-06-10] MEDS: IPRATROPIUM/ALBUTEROL 0.5-3(2.5)MG/3ML NEB HHN SCH ×3 (08:40→20:17)
[2020-06-10] MEDS: PANTOPRAZOLE SODIUM 40 MG/VIAL IV SCH (08:50)
[2020-06-10] MEDS ORDERED: ENOXAPARIN 40MG/0.4ML SYR SUBCUT SCH (09:00)
[2020-06-10 09:20] LABS: BG BASE EXCESS -1.5 mmol/L (-2.0-2.0); BG CARBOXYHEMOGLOBIN 0.7 % (0.5-1.5); BG DEOXYHEMOGLOBIN 0.6 % (0.0-5.0); BG FRACTION INSPIRED OXYGEN 100; BG METHEMOGLOBIN 0.3 % (0.0-1.5); BG OXYGEN SATURATION 99.4 % (92.0-98.5); BG OXYHEMOGLOBIN 98.4 % (94.0-97.0); BG PCO2 37.8 mmHg (35.0-45.0); BG PH 7.403 (7.350-7.450); BG PO2 149.2 mmHg (75.0-100.0); BG SAMPLE SITE RIGHT RADIAL; BG TIDAL VOLUME(mL) 500 mL; BG VENT MODE VENT - A/C; BG VENT RATE 22 set
[2020-06-10 09:56] LABS: PLATELET ESTIMATE NORMAL
[2020-06-10] MEDS ORDERED: FUROSEMIDE 40MG/4ML VIAL IVP NR (10:30)
[2020-06-10] MEDS ORDERED: FENTANYL CITRATE/PF 1,000 MCG in SODIUM CHLORIDE 0.9% 80 ML IV PRN (10:45)
[2020-06-10] MEDS ORDERED: FENTANYL CITRATE/PF 1,000 MCG in SODIUM CHLORIDE 0.9% 90 ML IV PRN (11:00)
[2020-06-10] MEDS: DOPAMINE 800MG PREMIX (DOUBLE) 250 ML IV SCH (11:22)
[2020-06-10] MEDS: FENTANYL CITRATE/PF 1,000 MCG in SODIUM CHLORIDE 0.9% 80 ML IV PRN ×2 (12:35→22:29)
[2020-06-10] MEDS: MIDAZOLAM HCL 100 MG in DEXT 5% WATER 80 ML IV PRN (12:36)
[2020-06-10] MEDS ORDERED: LIDOCAINE HCL 1% 20ML VIAL (Pyxis) INJ ONE (13:11)
[2020-06-10 16:48] LABS: HEMATOCRIT 26.4 % (36.0-48.0); HEMOGLOBIN 7.9 g/dL (12.0-16.0)
[2020-06-10 17:39] LABS: TOTAL IRON BINDING CAPACITY 423 ug/dL (250-450)
[2020-06-11] VITALS (97 sets, daily range): BP systolic 71–172; BP diastolic 26–77
[2020-06-11] MEDS: IPRATROPIUM/ALBUTEROL 0.5-3(2.5)MG/3ML NEB HHN SCH ×3 (01:10→20:32)
[2020-06-11] MEDS: MIDAZOLAM HCL 100 MG in DEXT 5% WATER 80 ML IV PRN ×2 (03:08→17:37)
[2020-06-11 05:42] LABS: CHLORIDE 107 mEq/L (98-107)
[2020-06-11 05:54] LABS: LDL CHOLESTEROL 45 mg/dL (5-100)
[2020-06-11 05:55] LABS: HDL CHOLESTEROL 56 mg/dL (40-59); T4 FREE 0.77 ng/dL (0.76-1.46)
[2020-06-11 05:56] LABS: TOTAL IRON BINDING CAPACITY 411 ug/dL (250-450)
[2020-06-11 06:09] LABS: VITAMIN B12 SERUM 671 pg/mL (211-911)
[2020-06-11 06:11] LABS: HEMATOCRIT. 25.1 % (36.0-48.0); HEMOGLOBIN. 7.3 g/dL (12.0-16.0); MEAN CORPUSCULAR VOLUME 65.1 fL (81.0-99.0); MEAN PLATELET VOLUME 9.8 fl (7.4-10.4); PLATELET 216 x1000/uL (130-400); RED BLOOD CELL COUNT 3.85 mill/uL (4.2-5.4); RED CELL DISTRIBUTION WIDTH 24.4 % (11.6-14.6)
[2020-06-11] MEDS: MEROPENEM 500 MG in SODIUM CHLORIDE 0.9% 50 ML IV SCH ×2 (06:19→17:35)
[2020-06-11] MEDS: DEXT 5%/0.45% NACL 1000ML 1,000 ML IV SCH (06:20)
[2020-06-11 08:40] LABS: PLATELET ESTIMATE NORMAL
[2020-06-11] MEDS ORDERED: POTASSIUM CHLORIDE 20MEQ TABLET SR PO SCH (08:45)
[2020-06-11] MEDS: PANTOPRAZOLE SODIUM 40 MG/VIAL IV SCH (09:03)
[2020-06-11] MEDS: FENTANYL CITRATE/PF 1,000 MCG in SODIUM CHLORIDE 0.9% 80 ML IV PRN ×2 (09:19→17:34)
[2020-06-11 09:43] LABS: BG BASE EXCESS 0.5 mmol/L (-2.0-2.0); BG CARBOXYHEMOGLOBIN 0.9 % (0.5-1.5); BG DEOXYHEMOGLOBIN 0.1 % (0.0-5.0); BG FRACTION INSPIRED OXYGEN 60; BG HCO3 ACT 23.7 mmol/L (22.0-26.0); BG METHEMOGLOBIN 0.3 % (0.0-1.5); BG OXYGEN SATURATION 99.9 % (92.0-98.5); BG OXYHEMOGLOBIN 98.7 % (94.0-97.0); BG PCO2 31.4 mmHg (35.0-45.0); BG PH 7.495 (7.350-7.450); BG PO2 246.5 mmHg (75.0-100.0); BG SAMPLE SITE RIGHT BRACHIAL; BG TIDAL VOLUME(mL) 500 mL; BG TOTAL HEMOGLOBIN 7.5 g/dL (12.0-18.0); BG VENT MODE VENT - A/C; BG VENT RATE 22 set
[2020-06-11] MEDS ORDERED: KCL 10MEQ/50ML PREMIX 50 ML IV SCH (11:00)
[2020-06-11] MEDS: QUETIAPINE FUMARATE 50MG TABLET GT SCH ×2 (11:20→20:25)
[2020-06-11] MEDS: MAGNESIUM OXIDE 400MG TABLET PO SCH (11:20)
[2020-06-11] MEDS: FUROSEMIDE 40MG/4ML VIAL IVP SCH ×2 (11:20→20:25)
[2020-06-11] MEDS: IRON SUCROSE COMPLEX 100 MG/5 ML ML IV SCH (14:06)
[2020-06-11] MEDS: DOPAMINE 800MG PREMIX (DOUBLE) 250 ML IV SCH (17:36)
[2020-06-12] VITALS (102 sets, daily range): BP systolic 64–153; BP diastolic 33–100
[2020-06-12] MEDS: FENTANYL CITRATE/PF 1,000 MCG in SODIUM CHLORIDE 0.9% 80 ML IV PRN ×2 (01:14→17:01)
[2020-06-12] MEDS: IPRATROPIUM/ALBUTEROL 0.5-3(2.5)MG/3ML NEB HHN SCH ×4 (02:16→20:40)
[2020-06-12 05:26] LABS: BASOPHILS % 0.6 % (0.0-2.0); EOSINOPHILS % 1.2 % (0.0-5.0); HEMATOCRIT. 28.3 % (36.0-48.0); HEMOGLOBIN. 8.4 g/dL (12.0-16.0); LYMPHOCYTES % 30.2 % (20.0-50.0); MEAN CORPUSCULAR HEMOGLOBIN 19.1 pg (28.0-32.0); MEAN CORPUSCULAR VOLUME 64.7 fL (81.0-99.0); MEAN PLATELET VOLUME 9.2 fl (7.4-10.4); PLATELET 186 x1000/uL (130-400); RED BLOOD CELL COUNT 4.38 mill/uL (4.2-5.4); RED CELL DISTRIBUTION WIDTH 24.3 % (11.6-14.6)
[2020-06-12] MEDS ORDERED: POTASSIUM CHLORIDE 20MEQ/PACKET PO NR (08:00)
[2020-06-12] MEDS ORDERED: DEXT 5%/0.45% NACL KCL 40MEQ/L 500 ML IV ONE (08:00)
[2020-06-12] MEDS: PANTOPRAZOLE SODIUM 40 MG/VIAL IV SCH (08:16)
[2020-06-12] MEDS: MAGNESIUM OXIDE 400MG TABLET PO SCH (08:17)
[2020-06-12] MEDS: FUROSEMIDE 40MG/4ML VIAL IVP SCH ×2 (08:17→21:01)
[2020-06-12] MEDS: FOLIC ACID 1MG TABLET PO SCH (08:17)
[2020-06-12] MEDS: THIAMINE HCL 100MG TABLET PO SCH (08:17)
[2020-06-12] MEDS: QUETIAPINE FUMARATE 50MG TABLET GT SCH ×2 (08:17→21:01)
[2020-06-12] MEDS ORDERED: POTASSIUM CHLORIDE INJ 40 MEQ in DEXT 5% WATER 250 ML IV NR ×2 (08:30→10:00)
[2020-06-12] MEDS ORDERED: MIDODRINE HCL 5MG TABLET PO SCH (09:45)
[2020-06-12 11:56] LABS: BG BASE EXCESS 2.1 mmol/L (-2.0-2.0); BG CARBOXYHEMOGLOBIN 0.6 % (0.5-1.5); BG FRACTION INSPIRED OXYGEN 45; BG HCO3 ACT 29.7 mmol/L (22.0-26.0); BG METHEMOGLOBIN 0.4 % (0.0-1.5); BG PCO2 65.2 mmHg (35.0-45.0); BG PH 7.276 (7.350-7.450); BG PO2 122.8 mmHg (75.0-100.0); BG PRESSURE SUPPORT 5; BG SAMPLE SITE RIGHT RADIAL; BG TOTAL HEMOGLOBIN 8.6 g/dL (12.0-18.0); BG VENT MODE VENT - CPAP
[2020-06-12] MEDS: IRON SUCROSE COMPLEX 100 MG/5 ML ML IV SCH (12:23)
[2020-06-12] MEDS ORDERED: MEROPENEM 500 MG in SODIUM CHLORIDE 0.9% 50 ML IV SCH (14:00)
[2020-06-12] MEDS: MEROPENEM 1000MG in NORMAL SALINE 100ML IV SCH (16:59)
[2020-06-12] MEDS ORDERED: BISACODYL 10MG SUPP PR NR (18:00)
[2020-06-12] MEDS: METOCLOPRAMIDE HCL 10MG/2ML VIAL IV SCH (18:08)
[2020-06-13] VITALS (89 sets, daily range): BP systolic 75–146; BP diastolic 36–71
[2020-06-13] MEDS: METOCLOPRAMIDE HCL 10MG/2ML VIAL IV SCH ×5 (00:05→23:47)
[2020-06-13] MEDS: DOPAMINE 800MG PREMIX (DOUBLE) 250 ML IV PRN (02:13)
[2020-06-13] MEDS: FENTANYL CITRATE/PF 1,000 MCG in SODIUM CHLORIDE 0.9% 80 ML IV PRN (02:14)
[2020-06-13] MEDS: IPRATROPIUM/ALBUTEROL 0.5-3(2.5)MG/3ML NEB HHN SCH ×4 (02:58→20:30)
[2020-06-13] MEDS: MEROPENEM 1000MG in NORMAL SALINE 100ML IV SCH ×2 (06:12→17:29)
[2020-06-13 07:18] LABS: HEMOGLOBIN. 7.9 g/dL (12.0-16.0); MEAN CORPUSCULAR HEMOGLOBIN 19.3 pg (28.0-32.0); MEAN CORPUSCULAR VOLUME 65.5 fL (81.0-99.0); RED BLOOD CELL COUNT 4.12 mill/uL (4.2-5.4); RED CELL DISTRIBUTION WIDTH 24.9 % (11.6-14.6)
[2020-06-13] MEDS: QUETIAPINE FUMARATE 50MG TABLET GT SCH ×2 (08:10→21:00)
[2020-06-13] MEDS: PANTOPRAZOLE SODIUM 40 MG/VIAL IV SCH (08:10)
[2020-06-13] MEDS: MAGNESIUM OXIDE 400MG TABLET PO SCH (08:10)
[2020-06-13] MEDS: FUROSEMIDE 40MG/4ML VIAL IVP SCH (08:10)
[2020-06-13] MEDS: FOLIC ACID 1MG TABLET PO SCH (08:10)
[2020-06-13] MEDS: THIAMINE HCL 100MG TABLET PO SCH (08:10)
[2020-06-13 10:44] LABS: PLATELET ESTIMATE NORMAL
[2020-06-13 10:45] LABS: MEAN PLATELET VOLUME 9.9 fl (7.4-10.4); PLATELET 181 x1000/uL (130-400)
[2020-06-13 10:48] LABS: BG CARBOXYHEMOGLOBIN 0.2 % (0.5-1.5); BG DEOXYHEMOGLOBIN 3.3 % (0.0-5.0); BG FRACTION INSPIRED OXYGEN 40; BG HCO3 ACT 27.8 mmol/L (22.0-26.0); BG METHEMOGLOBIN 0.4 % (0.0-1.5); BG OXYGEN SATURATION 96.7 % (92.0-98.5); BG OXYHEMOGLOBIN 96.1 % (94.0-97.0); BG PCO2 49.9 mmHg (35.0-45.0); BG PH 7.364 (7.350-7.450); BG PO2 94.6 mmHg (75.0-100.0); BG PRESSURE SUPPORT 8; BG SAMPLE SITE RIGHT RADIAL; BG TOTAL HEMOGLOBIN 8.3 g/dL (12.0-18.0); BG VENT MODE VENT - CPAP
[2020-06-13] MEDS: IRON SUCROSE COMPLEX 100 MG/5 ML ML IV SCH (11:25)
[2020-06-13 16:40] LABS: BG CARBOXYHEMOGLOBIN 0.1 % (0.5-1.5); BG DEOXYHEMOGLOBIN 1.1 % (0.0-5.0); BG FRACTION INSPIRED OXYGEN 40; BG HCO3 ACT 20.3 mmol/L (22.0-26.0); BG METHEMOGLOBIN 0.3 % (0.0-1.5); BG OXYGEN SATURATION 98.9 % (92.0-98.5); BG OXYHEMOGLOBIN 98.5 % (94.0-97.0); BG PCO2 29.1 mmHg (35.0-45.0); BG PH 7.461 (7.350-7.450); BG PO2 138.2 mmHg (75.0-100.0); BG SAMPLE SITE RIGHT RADIAL; BG TIDAL VOLUME(mL) 500 mL; BG TOTAL HEMOGLOBIN 7.8 g/dL (12.0-18.0); BG VENT MODE VENT - A/C; BG VENT RATE 16 set
[2020-06-14] VITALS (82 sets, daily range): BP systolic 62–150; BP diastolic 32–111
[2020-06-14] MEDS: DOPAMINE 800MG PREMIX (DOUBLE) 250 ML IV PRN (01:19)
[2020-06-14] MEDS: IPRATROPIUM/ALBUTEROL 0.5-3(2.5)MG/3ML NEB HHN SCH ×4 (02:19→20:14)
[2020-06-14 05:35] LABS: BASOPHILS % 1.5 % (0.0-2.0); EOSINOPHILS % 3.4 % (0.0-5.0); HEMOGLOBIN. 7.3 g/dL (12.0-16.0); LYMPHOCYTES % 18.5 % (20.0-50.0); MEAN CORPUSCULAR HEMOGLOBIN 19.4 pg (28.0-32.0); MEAN CORPUSCULAR VOLUME 66.2 fL (81.0-99.0); MONOCYTES % 7.6 % (2.0-8.0); RED BLOOD CELL COUNT 3.77 mill/uL (4.2-5.4); RED CELL DISTRIBUTION WIDTH 25.6 % (11.6-14.6)
[2020-06-14] MEDS: METOCLOPRAMIDE HCL 10MG/2ML VIAL IV SCH ×3 (06:00→17:54)
[2020-06-14] MEDS: MEROPENEM 1000MG in NORMAL SALINE 100ML IV SCH ×2 (06:28→17:43)
[2020-06-14 08:58] LABS: BG BASE EXCESS 3.2 mmol/L (-2.0-2.0); BG DEOXYHEMOGLOBIN 0.9 % (0.0-5.0); BG FRACTION INSPIRED OXYGEN 40; BG METHEMOGLOBIN 0.5 % (0.0-1.5); BG OXYGEN SATURATION 99.1 % (92.0-98.5); BG OXYHEMOGLOBIN 97.6 % (94.0-97.0); BG PCO2 37.6 mmHg (35.0-45.0); BG PH 7.474 (7.350-7.450); BG PO2 142.2 mmHg (75.0-100.0); BG SAMPLE SITE RIGHT RADIAL; BG TIDAL VOLUME(mL) 500 mL; BG TOTAL HEMOGLOBIN 7.7 g/dL (12.0-18.0); BG VENT MODE VENT - A/C; BG VENT RATE 16 set
[2020-06-14] MEDS ORDERED: BISACODYL 10MG SUPP PR NR (09:45)
[2020-06-14] MEDS: MAGNESIUM OXIDE 400MG TABLET PO SCH (09:52)
[2020-06-14] MEDS: THIAMINE HCL 100MG TABLET PO SCH (09:52)
[2020-06-14] MEDS: QUETIAPINE FUMARATE 50MG TABLET GT SCH ×2 (09:52→21:30)
[2020-06-14] MEDS: FOLIC ACID 1MG TABLET PO SCH (09:52)
[2020-06-14] MEDS: PANTOPRAZOLE SODIUM 40 MG/VIAL IV SCH (09:52)
[2020-06-14] MEDS ORDERED: SODIUM CHLORIDE 0.9% 500 ML IV NR (10:15)
[2020-06-14 10:57] LABS: PLATELET ESTIMATE NORMAL
[2020-06-14] MEDS ORDERED: FERROUS SULFATE 325MG TABLET PO SCH (11:00)
[2020-06-14 11:03] LABS: PLATELET 159 x1000/uL (130-400)
[2020-06-14 11:04] LABS: MEAN PLATELET VOLUME 8.7 fl (7.4-10.4)
[2020-06-14] MEDS: MIDODRINE HCL 5MG TABLET PO SCH ×2 (12:44→17:54)
[2020-06-14] MEDS: FERROUS SULFATE 300MG/5ML UDC PO SCH (13:13)
[2020-06-14 16:27] LABS: BG BASE EXCESS 1.2 mmol/L (-2.0-2.0); BG CARBOXYHEMOGLOBIN 0.6 % (0.5-1.5); BG DEOXYHEMOGLOBIN 1.5 % (0.0-5.0); BG FRACTION INSPIRED OXYGEN 40; BG METHEMOGLOBIN 0.4 % (0.0-1.5); BG OXYGEN SATURATION 98.5 % (92.0-98.5); BG OXYHEMOGLOBIN 97.5 % (94.0-97.0); BG PCO2 42.4 mmHg (35.0-45.0); BG PH 7.406 (7.350-7.450); BG PRESSURE SUPPORT 14; BG SAMPLE SITE RIGHT RADIAL; BG TIDAL VOLUME(mL) 500 mL; BG TOTAL HEMOGLOBIN 7.6 g/dL (12.0-18.0); BG VENT MODE VENT - SIMV; BG VENT RATE 10 set
[2020-06-15] VITALS (91 sets, daily range): BP systolic 80–158; BP diastolic 36–73
[2020-06-15] MEDS: IPRATROPIUM/ALBUTEROL 0.5-3(2.5)MG/3ML NEB HHN SCH ×4 (01:52→20:38)
[2020-06-15] MEDS: METOCLOPRAMIDE HCL 10MG/2ML VIAL IV SCH ×5 (06:00→23:55)
[2020-06-15 06:20] LABS: HEMOGLOBIN. 7.8 g/dL (12.0-16.0); MEAN CORPUSCULAR HEMOGLOBIN 19.6 pg (28.0-32.0); MEAN CORPUSCULAR VOLUME 67.6 fL (81.0-99.0); MEAN PLATELET VOLUME 8.8 fl (7.4-10.4); PLATELET 168 x1000/uL (130-400); RED CELL DISTRIBUTION WIDTH 26.2 % (11.6-14.6)
[2020-06-15] MEDS: PANTOPRAZOLE SODIUM 40 MG/VIAL IV SCH (10:00)
[2020-06-15] MEDS: FERROUS SULFATE 300MG/5ML UDC PO SCH (10:00)
[2020-06-15] MEDS: MAGNESIUM OXIDE 400MG TABLET PO SCH (10:00)
[2020-06-15] MEDS: MIDODRINE HCL 5MG TABLET PO SCH ×3 (10:01→22:02)
[2020-06-15] MEDS: THIAMINE HCL 100MG TABLET PO SCH (10:01)
[2020-06-15] MEDS: FOLIC ACID 1MG TABLET PO SCH (10:01)
[2020-06-15] MEDS: QUETIAPINE FUMARATE 50MG TABLET GT SCH ×2 (10:01→21:01)
[2020-06-15] MEDS: DOCUSATE SODIUM 250MG CAPSULE PO SCH (10:02)
[2020-06-15] MEDS ORDERED: SODIUM CHLORIDE 0.9% 500 ML IV ONE (11:00)
[2020-06-15 11:06] LABS: BG BASE EXCESS 0.7 mmol/L (-2.0-2.0); BG CARBOXYHEMOGLOBIN 0.7 % (0.5-1.5); BG DEOXYHEMOGLOBIN 1.7 % (0.0-5.0); BG FRACTION INSPIRED OXYGEN 40; BG HCO3 ACT 26.8 mmol/L (22.0-26.0); BG METHEMOGLOBIN 0.3 % (0.0-1.5); BG OXYGEN SATURATION 98.3 % (92.0-98.5); BG OXYHEMOGLOBIN 97.3 % (94.0-97.0); BG PCO2 50.4 mmHg (35.0-45.0); BG PH 7.343 (7.350-7.450); BG PO2 124.7 mmHg (75.0-100.0); BG PRESSURE SUPPORT 14; BG SAMPLE SITE RIGHT RADIAL; BG TIDAL VOLUME(mL) 500 mL; BG VENT MODE VENT - SIMV; BG VENT RATE 10 set
[2020-06-15] MEDS ORDERED: FUROSEMIDE 20MG/2ML VIAL IVP NR (11:15)
[2020-06-15 12:30] LABS: BG BASE EXCESS 1.2 mmol/L (-2.0-2.0); BG CARBOXYHEMOGLOBIN 0.6 % (0.5-1.5); BG DEOXYHEMOGLOBIN 1.1 % (0.0-5.0); BG FRACTION INSPIRED OXYGEN 40; BG HCO3 ACT 26.9 mmol/L (22.0-26.0); BG METHEMOGLOBIN 0.3 % (0.0-1.5); BG OXYGEN SATURATION 98.9 % (92.0-98.5); BG PCO2 47.8 mmHg (35.0-45.0); BG PH 7.368 (7.350-7.450); BG PO2 141.5 mmHg (75.0-100.0); BG PRESSURE SUPPORT 8; BG SAMPLE SITE RIGHT RADIAL; BG TOTAL HEMOGLOBIN 10.1 g/dL (12.0-18.0); BG VENT MODE VENT - CPAP
[2020-06-15 12:44] LABS: NUCLEATED RED BLOOD CELLS 1 /100 WBC; PLATELET ESTIMATE NORMAL
[2020-06-15] MEDS ORDERED: RACEPINEPHRINE 2.25% 0.5ML NEB VIAL HHN PRN (13:00)
[2020-06-15] MEDS ORDERED: SODIUM POLYSTYRENE SULFONATE 15 G/60 ML BOT PO NR (13:00)
[2020-06-15 17:05] LABS: CLARITY URINE CLEAR (CLEAR); COLOR URINE YELLOW (YELLOW); KETONES URINE NEGATIVE (NEGATIVE); LEUKOCYTE ESTERASE URINE NEGATIVE (NEGATIVE); NITRITE URINE NEGATIVE (NEGATIVE); OCCULT BLOOD URINE NEGATIVE (NEGATIVE); PH URINE 6.5 (4.5-8.0); PROTEIN URINE NEGATIVE (NEGATIVE); UROBILINOGEN URINE 0.2 E.U./dL (0.2-1.0)
[2020-06-16] VITALS (42 sets, daily range): BP systolic 97–151; BP diastolic 39–84
[2020-06-16] MEDS: IPRATROPIUM/ALBUTEROL 0.5-3(2.5)MG/3ML NEB HHN SCH ×4 (02:08→21:24)
[2020-06-16] MEDS: METOCLOPRAMIDE HCL 10MG/2ML VIAL IV SCH ×3 (05:10→18:57)
[2020-06-16] MEDS: MIDODRINE HCL 5MG TABLET PO SCH ×3 (05:11→22:05)
[2020-06-16 06:13] LABS: HEMOGLOBIN. 7.3 g/dL (12.0-16.0); MEAN CORPUSCULAR HEMOGLOBIN 19.8 pg (28.0-32.0); MEAN CORPUSCULAR VOLUME 67.5 fL (81.0-99.0); RED BLOOD CELL COUNT 3.71 mill/uL (4.2-5.4); RED CELL DISTRIBUTION WIDTH 25.8 % (11.6-14.6)
[2020-06-16] MEDS: FERROUS SULFATE 300MG/5ML UDC PO SCH (08:28)
[2020-06-16] MEDS: PANTOPRAZOLE SODIUM 40 MG/VIAL IV SCH (08:28)
[2020-06-16] MEDS: DOCUSATE SODIUM 250MG CAPSULE PO SCH (08:29)
[2020-06-16] MEDS: QUETIAPINE FUMARATE 50MG TABLET GT SCH ×2 (08:29→21:18)
[2020-06-16] MEDS: FOLIC ACID 1MG TABLET PO SCH (08:29)
[2020-06-16] MEDS: MAGNESIUM OXIDE 400MG TABLET PO SCH (08:29)
[2020-06-16] MEDS: THIAMINE HCL 100MG TABLET PO SCH (08:29)
[2020-06-16] MEDS ORDERED: CLONIDINE 0.1MG TABLET PO PRN (10:15)
[2020-06-16 13:08] LABS: PLATELET 156 x1000/uL (130-400)
[2020-06-16 13:30] LABS: PLATELET ESTIMATE NORMAL
[2020-06-17] VITALS (8 sets, daily range): BP systolic 110–140; BP diastolic 51–79
[2020-06-17] MEDS: METOCLOPRAMIDE HCL 10MG/2ML VIAL IV SCH ×3 (00:03→11:51)
[2020-06-17] MEDS: IPRATROPIUM/ALBUTEROL 0.5-3(2.5)MG/3ML NEB HHN SCH ×3 (01:32→14:11)
[2020-06-17] MEDS: MIDODRINE HCL 5MG TABLET PO SCH ×2 (05:33→13:28)
[2020-06-17 06:28] LABS: BASOPHILS % 1.4 % (0.0-2.0); EOSINOPHILS % 5.6 % (0.0-5.0); HEMATOCRIT. 25.9 % (36.0-48.0); HEMOGLOBIN. 7.5 g/dL (12.0-16.0); LYMPHOCYTES % 12.5 % (20.0-50.0); MEAN CORPUSCULAR HEMOGLOBIN 19.7 pg (28.0-32.0); MEAN CORPUSCULAR VOLUME 68.2 fL (81.0-99.0); MONOCYTES % 8.6 % (2.0-8.0); NEUTROPHILS % 71.9 % (40.0-76.0); RED CELL DISTRIBUTION WIDTH 25.8 % (11.6-14.6)
[2020-06-17] MEDS: DOCUSATE SODIUM 250MG CAPSULE PO SCH (08:10)
[2020-06-17] MEDS: MAGNESIUM OXIDE 400MG TABLET PO SCH (08:10)
[2020-06-17] MEDS: FOLIC ACID 1MG TABLET PO SCH (08:10)
[2020-06-17] MEDS: QUETIAPINE FUMARATE 50MG TABLET GT SCH (08:10)
[2020-06-17] MEDS: FERROUS SULFATE 300MG/5ML UDC PO SCH (08:11)
[2020-06-17] MEDS: THIAMINE HCL 100MG TABLET PO SCH (08:11)
[2020-06-17] MEDS: PANTOPRAZOLE SODIUM 40 MG/VIAL IV SCH (08:11)
[2020-06-17 12:22] LABS: MEAN PLATELET VOLUME 9.3 fl (7.4-10.4); PLATELET 142 x1000/uL (130-400)
[2020-06-17] MEDS ORDERED: FURO-152 MT (12:40)
[2020-06-17] MEDS ORDERED: DOCU250C14 PO (12:40)
[2020-06-17] MEDS ORDERED: FE300LUD PO (12:40)
[2020-06-17] MEDS ORDERED: FUROSEMIDE 20MG TABLET PO SCH (13:00)
[2020-06-17] MEDS ORDERED: SODIUM POLYSTYRENE SULFONATE 15 G/60 ML BOT PO NR (15:00)
== END 2020-06-17 15:10 | disposition home health service (06) | DRG 811 ==
LOC: ER 16:17 → 5WST 20:29 → EDBEDREQ 20:30 → EDBEDREQTM 20:30 → ENRESERV 21:13 → MICUNO 23:20 → CVICU 06-10 10:28 → MICUSO 06-10 21:35 → CVICU 06-12 09:17 → 5EST 06-16 15:10
PROVIDERS: ADMIT Internal Medicine; ATTEND Internal Medicine
PROC: 5A1955Z Respiratory Ventilation, Greater than 96 Consecutive Hours (ICD-10-PCS; principal; 2020-06-09)
PROC: 02HV33Z Insertion of Infusion Device into Superior Vena Cava, Percutaneous Approach (ICD-10-PCS; 2020-06-09)
PROC: B548ZZA Ultrasonography of Superior Vena Cava, Guidance (ICD-10-PCS; 2020-06-09)
PROC: 30233N1 Transfusion of Nonautologous Red Blood Cells into Peripheral Vein, Percutaneous Approach (ICD-10-PCS; 2020-06-09)
PROC: 0BH17EZ Insertion of Endotracheal Airway into Trachea, Via Natural or Artificial Opening (ICD-10-PCS; 2020-06-09)
DX: T80.92XA Unspecified transfusion reaction, initial encounter (principal); J96.00 Acute respiratory failure, unspecified whether with hypoxia or hypercapnia; I50.31 Acute diastolic (congestive) heart failure; N17.0 Acute kidney failure with tubular necrosis; E87.2 Acidosis; D50.9 Iron deficiency anemia, unspecified; I27.20 Pulmonary hypertension, unspecified; J44.9 Chronic obstructive pulmonary disease, unspecified; M19.90 Unspecified osteoarthritis, unspecified site; E78.5 Hyperlipidemia, unspecified; E03.9 Hypothyroidism, unspecified; M48.061 Spinal stenosis, lumbar region without neurogenic claudication; R00.1 Bradycardia, unspecified; I36.1 Nonrheumatic tricuspid (valve) insufficiency; D72.829 Elevated white blood cell count, unspecified; R74.0 Nonspecific elevation of levels of transaminase and lactic acid dehydrogenase [LDH]; I35.1 Nonrheumatic aortic (valve) insufficiency; F10.10 Alcohol abuse, uncomplicated; Y90.9 Presence of alcohol in blood, level not specified; E87.6 Hypokalemia; E83.42 Hypomagnesemia; Z20.828 Contact with and (suspected) exposure to other viral communicable diseases; Y84.8 Other medical procedures as the cause of abnormal reaction of the patient, or of later complication, without mention of misadventure at the time of the procedure; I95.9 Hypotension, unspecified; I11.0 Hypertensive heart disease with heart failure; Z88.2 Allergy status to sulfonamides; Z88.8 Allergy status to other drugs, medicaments and biological substances; Z88.0 Allergy status to penicillin; Z91.013 Allergy to seafood; Z79.891 Long term (current) use of opiate analgesic; Z79.890 Hormone replacement therapy; Z79.899 Other long term (current) drug therapy; Z88.9 Allergy status to unspecified drugs, medicaments and biological substances; Z78.1 Physical restraint status; Y92.89 Other specified places as the place of occurrence of the external cause
CPT/HCPCS: 31500; 36415; 36600; 71045; 76937; 80048; 80053; 80061; 81003; 82270; 82375; 82570; 82607; 82728; 82805; 83540; 83550; 83735; 83880; 83935; 84132; 84145; 84300; 84439; 84443; 84478; 84481; 84484; 85014; 85018; 85025; 85044; 86078; 86850; 86900; 86920; 87070; 87635; 92610; 93005; 93306; 93970; 94002; 94003; 94640; 96365; 97116; 97162; 97166; 97530; 97535; 99285; C1725; C1769; C9113; J0330; J1265; J1940; J2185; J2250; J2704; J2765; J2930; J3010; J3480; J3490; J7050; J7060; P9016

== ENCOUNTER 2020-08-14 02:44 | Inpatient (IN) | payer MEDICARE, MEDICAID ==
[~2020-08-14] VITALS: Ht 162.6 cm; Wt 87.1 kg
[~2020-08-14 02:44] MED LIST changes: +ATOR40TA70 PO; +DOCU250C14 PO; +FE300LUD PO; -FOLI-43 PO; +FURO-152 MT; +HYDR-4005 PO; -LORA10TA7 PO; -OMEP20CA14 MT
[2020-08-14 04:19] LABS: EOSINOPHILS % 1.8 % (0.0-5.0); HEMATOCRIT. 37.4 % (36.0-48.0); HEMOGLOBIN. 11.9 g/dL (12.0-16.0); LYMPHOCYTES % 12.8 % (20.0-50.0); MEAN CORPUSCULAR VOLUME 81.8 fL (81.0-99.0); MEAN PLATELET VOLUME 9.4 fl (7.4-10.4); MONOCYTES % 5.2 % (2.0-8.0); NEUTROPHILS % 79.2 % (40.0-76.0); PLATELET 127 x1000/uL (130-400); RED BLOOD CELL COUNT 4.57 mill/uL (4.2-5.4); RED CELL DISTRIBUTION WIDTH 28.2 % (11.6-14.6)
[2020-08-14 04:30] LABS: CHLORIDE 106 mEq/L (98-107)
[2020-08-14 05:43] LABS: CLARITY URINE CLEAR (CLEAR); COLOR URINE YELLOW (YELLOW); KETONES URINE NEGATIVE (NEGATIVE); LEUKOCYTE ESTERASE URINE NEGATIVE (NEGATIVE); NITRITE URINE NEGATIVE (NEGATIVE); OCCULT BLOOD URINE NEGATIVE (NEGATIVE); PH URINE 6.5 (4.5-8.0); PROTEIN URINE TRACE (NEGATIVE); SPECIFIC GRAVITY URINE 1.017 (1.005-1.030); UROBILINOGEN URINE 0.2 E.U./dL (0.2-1.0)
[2020-08-14 08:59] VITALS: BP 128/60
[2020-08-14 09:00] VITALS: BP 128/60
[2020-08-14] MEDS ORDERED: BISACODYL 10MG SUPP PR NR (12:00)
[2020-08-14] MEDS ORDERED: MAGNESIUM/ALUMINUM HYDROXIDE/SIMETHICONE 30ML UDC PO PRN ×2 (12:00→13:45)
[2020-08-14] MEDS ORDERED: CLONIDINE 0.1MG TABLET PO PRN (12:00)
[2020-08-14] MEDS ORDERED: ACETAMINOPHEN 325MG TABLET PO PRN (12:00)
[2020-08-14] MEDS: DOCUSATE SODIUM 100MG CAPSULE PO SCH ×2 (12:07→17:46)
[2020-08-14] MEDS: PANTOPRAZOLE SODIUM 40 MG/VIAL IV SCH (12:07)
[2020-08-14] MEDS: HYDROCODONE/ACETAMINOPHEN 5/325MG TABLET PO PRN (12:08)
[2020-08-14] MEDS: ENOXAPARIN 40MG/0.4ML SYR SUBCUT SCH (12:15)
[2020-08-14] MEDS: FUROSEMIDE 20MG TABLET PO SCH (13:10)
[2020-08-14] MEDS: LEVOTHYROXINE SODIUM 100MCG TABLET PO SCH (13:11)
[2020-08-14] MEDS ORDERED: SIMETHICONE 80MG TABLET CHEW PO PRN (13:45)
[2020-08-14] MEDS ORDERED: MAGNESIUM CITRATE 300ML SOLUTION PO NR (14:00)
[2020-08-14] MEDS ORDERED: INFLUENZA VACCINE 05/PF 0.5 ML VIAL IM ONE (15:00)
[2020-08-14] MEDS ORDERED: KETO5DRO80 EACHEYE (15:13)
[2020-08-14] MEDS ORDERED: MELO15TA13 PO (15:23)
[2020-08-14] MEDS ORDERED: PANT40TA4 PO (15:23)
[2020-08-14] MEDS ORDERED: ERYT1OIN6 EACHEYE (15:25)
[2020-08-14] MEDS ORDERED: ATROV INH (15:27)
[2020-08-14 16:01] LABS: TOTAL IRON BINDING CAPACITY 328 ug/dL (250-450)
[2020-08-14 16:06] LABS: T4 FREE 0.63 ng/dL (0.76-1.46)
[2020-08-14 16:16] VITALS: BP 117/47
[2020-08-14 20:00] VITALS: BP 131/50
[2020-08-14] MEDS: LACTULOSE 20G/30ML UDC PO SCH (22:04)
[2020-08-14] MEDS: ATORVASTATIN CALCIUM 40MG TABLET PO SCH (22:04)
[2020-08-15] VITALS: BP 124/50
[2020-08-15 04:00] VITALS: BP 126/49
[2020-08-15 06:51] LABS: HEMATOCRIT. 39.9 % (36.0-48.0); HEMOGLOBIN. 12.7 g/dL (12.0-16.0); MEAN CORPUSCULAR HEMOGLOBIN 25.9 pg (28.0-32.0); MEAN CORPUSCULAR VOLUME 81.3 fL (81.0-99.0); RED BLOOD CELL COUNT 4.91 mill/uL (4.2-5.4); RED CELL DISTRIBUTION WIDTH 28.1 % (11.6-14.6)
[2020-08-15] MEDS: LEVOTHYROXINE SODIUM 100MCG TABLET PO SCH (07:01)
[2020-08-15 07:40] LABS: CHLORIDE 106 mEq/L (98-107)
[2020-08-15 08:00] VITALS: BP 111/67
[2020-08-15 08:06] LABS: LDL CHOLESTEROL 70 mg/dL (5-100)
[2020-08-15 08:08] LABS: HDL CHOLESTEROL 63 mg/dL (40-59)
[2020-08-15] MEDS: DOCUSATE SODIUM 100MG CAPSULE PO SCH ×2 (08:22→17:40)
[2020-08-15] MEDS: FUROSEMIDE 20MG TABLET PO SCH (08:23)
[2020-08-15] MEDS: POLYETHYLENE GLYCOL 3350 (17GM) 1 DOSE PACK PO SCH (08:23)
[2020-08-15] MEDS: PANTOPRAZOLE SODIUM 40 MG/VIAL IV SCH (08:24)
[2020-08-15] MEDS: FERROUS SULFATE 300MG/5ML UDC PO SCH (09:00)
[2020-08-15 11:33] LABS: PLATELET 134 x1000/uL (130-400)
[2020-08-15 11:36] LABS: PLATELET ESTIMATE NORMAL
[2020-08-15 12:00] VITALS: BP 149/59
[2020-08-15 12:28] LABS: *AMPHETAMINES SCREEN URINE NEGATIVE (NEGATIVE); *BARBITURATES SCREEN URINE NEGATIVE (NEGATIVE); *BENZODIAZEPINES SCREEN URINE NEGATIVE (NEGATIVE); *COCAINE SCREEN URINE NEGATIVE (NEGATIVE); METHADONE URINE SCREEN NEGATIVE (NEGATIVE); OPIATES URINE SCREEN NEGATIVE (NEGATIVE)
[2020-08-15 12:30] LABS: CANNABINOID URINE SCREEN NEGATIVE (NEGATIVE); PHENCYCLIDINE URINE SCREEN NEGATIVE (NEGATIVE)
[2020-08-15] MEDS: ENOXAPARIN 40MG/0.4ML SYR SUBCUT SCH (14:13)
[2020-08-15 16:00] VITALS: BP 133/67
[2020-08-15] MEDS: HYDROCODONE/ACETAMINOPHEN 5/325MG TABLET PO PRN (17:40)
[2020-08-15 20:00] VITALS: BP 141/63
[2020-08-15] MEDS: ONDANSETRON HCL 4MG/2ML INJ IV PRN (20:26)
[2020-08-15] MEDS: LACTULOSE 20G/30ML UDC PO SCH (21:01)
[2020-08-15] MEDS: ATORVASTATIN CALCIUM 40MG TABLET PO SCH (21:01)
[2020-08-16] VITALS: BP 133/53
[2020-08-16 04:00] VITALS: BP 114/48
[2020-08-16] MEDS: LEVOTHYROXINE SODIUM 100MCG TABLET PO SCH (05:16)
[2020-08-16] MEDS: ONDANSETRON HCL 4MG/2ML INJ IV PRN ×2 (06:13→09:26)
[2020-08-16 07:33] LABS: BASOPHILS % 0.2 % (0.0-2.0); EOSINOPHILS % 1.2 % (0.0-5.0); HEMATOCRIT. 40.2 % (36.0-48.0); HEMOGLOBIN. 12.7 g/dL (12.0-16.0); LYMPHOCYTES % 11.2 % (20.0-50.0); MEAN CORPUSCULAR HEMOGLOBIN 25.8 pg (28.0-32.0); MEAN CORPUSCULAR VOLUME 81.6 fL (81.0-99.0); MEAN PLATELET VOLUME 10.2 fl (7.4-10.4); MONOCYTES % 9.8 % (2.0-8.0); NEUTROPHILS % 77.6 % (40.0-76.0); PLATELET 129 x1000/uL (130-400); RED BLOOD CELL COUNT 4.93 mill/uL (4.2-5.4); RED CELL DISTRIBUTION WIDTH 27.7 % (11.6-14.6)
[2020-08-16 08:00] VITALS: BP 117/69
[2020-08-16] MEDS: PANTOPRAZOLE SODIUM 40 MG/VIAL IV SCH (09:12)
[2020-08-16] MEDS: FERROUS SULFATE 300MG/5ML UDC PO SCH (09:12)
[2020-08-16] MEDS: DOCUSATE SODIUM 100MG CAPSULE PO SCH ×2 (09:13→17:00)
[2020-08-16] MEDS: HYDROCODONE/ACETAMINOPHEN 5/325MG TABLET PO PRN (09:13)
[2020-08-16] MEDS: FUROSEMIDE 20MG TABLET PO SCH (09:14)
[2020-08-16] MEDS: POLYETHYLENE GLYCOL 3350 (17GM) 1 DOSE PACK PO SCH (09:15)
[2020-08-16 12:00] VITALS: BP 107/58
[2020-08-16] MEDS: SODIUM CHLORIDE 0.45% 1,000 ML IV SCH (13:21)
[2020-08-16] MEDS: ENOXAPARIN 40MG/0.4ML SYR SUBCUT SCH (13:38)
[2020-08-16 16:00] VITALS: BP_SYST 115; BP_SYST 121; BP_DIAS 58; BP_DIAS 70
[2020-08-16] MEDS ORDERED: MORPHINE SULFATE 2 MG/ML CPJ (NOT FOR IM USE) IV PRN (18:45)
[2020-08-16 19:55] VITALS: BP 113/47
[2020-08-16] MEDS: ATORVASTATIN CALCIUM 40MG TABLET PO SCH (21:00)
[2020-08-17] VITALS (7 sets, daily range): BP systolic 109–136; BP diastolic 49–82
[2020-08-17] MEDS: SODIUM CHLORIDE 0.45% 1,000 ML IV SCH (01:38)
[2020-08-17] MEDS: ONDANSETRON HCL 4MG/2ML INJ IV PRN ×2 (04:21→14:15)
[2020-08-17] MEDS ORDERED: DEXT 5%/0.45% NACL 1000ML 1,000 ML IV SCH (05:00)
[2020-08-17 07:15] LABS: BASOPHILS % 0.7 % (0.0-2.0); EOSINOPHILS % 1.1 % (0.0-5.0); HEMATOCRIT. 38.2 % (36.0-48.0); HEMOGLOBIN. 12.1 g/dL (12.0-16.0); LYMPHOCYTES % 8.7 % (20.0-50.0); MEAN CORPUSCULAR HEMOGLOBIN 25.8 pg (28.0-32.0); MEAN CORPUSCULAR VOLUME 81.4 fL (81.0-99.0); MEAN PLATELET VOLUME 9.7 fl (7.4-10.4); MONOCYTES % 12.3 % (2.0-8.0); NEUTROPHILS % 77.2 % (40.0-76.0); PLATELET 142 x1000/uL (130-400); RED BLOOD CELL COUNT 4.69 mill/uL (4.2-5.4); RED CELL DISTRIBUTION WIDTH 27.3 % (11.6-14.6)
[2020-08-17] MEDS: DOCUSATE SODIUM 100MG CAPSULE PO SCH ×2 (09:00→16:11)
[2020-08-17] MEDS: ENOXAPARIN 30MG/0.3ML SYR SUBCUT SCH (12:13)
[2020-08-17] MEDS: LEVOTHYROXINE SODIUM 100 MCG/ VIAL IV SCH (13:09)
[2020-08-17] MEDS: DEXT 5%/0.9% NACL 1,000 ML IV SCH ×2 (13:45→21:58)
[2020-08-17] MEDS: PANTOPRAZOLE SODIUM 40 MG/VIAL IV SCH (15:40)
[2020-08-17 20:56] LABS: CLARITY URINE CLOUDY (CLEAR); COLOR URINE DARK YELLOW (YELLOW); KETONES URINE NEGATIVE (NEGATIVE); LEUKOCYTE ESTERASE URINE 2+ (NEGATIVE); NITRITE URINE NEGATIVE (NEGATIVE); OCCULT BLOOD URINE 1+ (NEGATIVE); PROTEIN URINE 1+ (NEGATIVE); SPECIFIC GRAVITY URINE 1.019 (1.005-1.030)
[2020-08-17] MEDS: ATORVASTATIN CALCIUM 40MG TABLET PO SCH (21:00)
[2020-08-18] VITALS: BP 91/55
[2020-08-18 04:00] VITALS: BP 124/45
[2020-08-18 04:46] LABS: HEMATOCRIT. 40.2 % (36.0-48.0); HEMOGLOBIN. 12.6 g/dL (12.0-16.0); MEAN CORPUSCULAR VOLUME 82.8 fL (81.0-99.0); MEAN PLATELET VOLUME 9.4 fl (7.4-10.4); PLATELET 110 x1000/uL (130-400); RED BLOOD CELL COUNT 4.85 mill/uL (4.2-5.4); RED CELL DISTRIBUTION WIDTH 27.2 % (11.6-14.6)
[2020-08-18 04:52] LABS: CHLORIDE 109 mEq/L (98-107)
[2020-08-18 04:58] LABS: PHOSPHORUS 3.3 mg/dL (2.5-4.9)
[2020-08-18] MEDS: DEXT 5%/0.9% NACL 1,000 ML IV SCH (06:09)
[2020-08-18 07:38] LABS: PLATELET ESTIMATE SLIGHTLY DECREASED
[2020-08-18 07:39] VITALS: BP 123/48
[2020-08-18] MEDS: LEVOTHYROXINE SODIUM 100 MCG/ VIAL IV SCH (09:00)
[2020-08-18] MEDS: DOCUSATE SODIUM 100MG CAPSULE PO SCH (09:00)
[2020-08-18] MEDS ORDERED: ENOXAPARIN 40MG/0.4ML SYR SUBCUT SCH (09:00)
[2020-08-18] MEDS: PANTOPRAZOLE SODIUM 40 MG/VIAL IV SCH (09:00)
[2020-08-18] MEDS ORDERED: SKIN ADHESIVE 0.7 GM EA TOP ONE (09:06)
[2020-08-18] MEDS ORDERED: BUPIVACAINE HCL 0.5% (5MG/ML) 50ML ONE (09:06)
[2020-08-18] MEDS ORDERED: LEVOFLOXACIN 500MG PREMIX 100 ML IV ONE (09:12)
[2020-08-18] MEDS ORDERED: METRONIDAZOLE 500 MG PREMIX 100 ML IV ONE (09:13)
[2020-08-18] MEDS ORDERED: SODIUM BICARBONATE 8.4% 1 MEQ/ML 50ML SYR IV ONE (09:13)
[2020-08-18] MEDS ORDERED: VASOPRESSIN 20 UNIT/ML 1ML ONE (09:13)
[2020-08-18] MEDS ORDERED: CALCIUM CHLORIDE 1GM/10ML SYR IV ONE (09:13)
[2020-08-18] MEDS ORDERED: CEFAZOLIN 1000MG PREMIX 50 ML IV SCH (09:15)
[2020-08-18] MEDS ORDERED: ALBUMIN HUMAN 12.5G/250ML (5%) IV ONE (09:23)
[2020-08-18] MEDS ORDERED: ROCURONIUM BROMIDE 10MG/ML VIAL 5ML IV ONE (09:29)
[2020-08-18] MEDS ORDERED: PROPOFOL 200MG/20ML VIAL IV ONE (09:29)
[2020-08-18] MEDS ORDERED: DEXT 5%/0.45% NACL KCL 20MEQ/L 1,000 ML IV SCH ×2 (09:30→21:00)
[2020-08-18] MEDS ORDERED: GLYCOPYRROLATE 0.2 MG/ML 2ML VIAL ONE ×2 (09:35→10:26)
[2020-08-18] MEDS ORDERED: CEFEPIME 1,000 MG in DEXTROSE 5% WATER 50 ML IV SCH (09:45)
[2020-08-18] MEDS ORDERED: HYDROMORPHONE HCL/PF 2MG/ML (OR) ONE (10:11)
[2020-08-18 10:18] LABS: BG BASE EXCESS -4.8 mmol/L (-2.0-2.0); BG CARBOXYHEMOGLOBIN 0.3 % (0.5-1.5); BG DEOXYHEMOGLOBIN 0.5 % (0.0-5.0); BG FRACTION INSPIRED OXYGEN 100; BG HCO3 ACT 19.5 mmol/L (22.0-26.0); BG METHEMOGLOBIN 0.3 % (0.0-1.5); BG OXYGEN SATURATION 99.5 % (92.0-98.5); BG OXYHEMOGLOBIN 98.9 % (94.0-97.0); BG PCO2 33.6 mmHg (35.0-45.0); BG PH 7.382 (7.350-7.450); BG PO2 429.6 mmHg (75.0-100.0); BG SAMPLE SITE ALINE; BG TOTAL HEMOGLOBIN 11.5 g/dL (12.0-18.0); BG VENT MODE VENT - AC
[2020-08-18] MEDS ORDERED: EPHEDRINE SULFATE 50MG/ML VIAL ONE (10:23)
[2020-08-18] MEDS ORDERED: NEOSTIGMINE METHYLSULFATE 1MG/ML 10 ML VIAL ONE (10:26)
[2020-08-18] MEDS ORDERED: AMIODARONE HCL 50MG/ML 3ML VIAL IV ONE (10:31)
[2020-08-18] MEDS ORDERED: HYDROMORPHONE HCL/PF 2MG/ML CPJ IV PRN (11:45)
[2020-08-18] MEDS ORDERED: MEPERIDINE HCL/PF 25MG/ML CPJ IV PRN (11:45)
[2020-08-18] MEDS ORDERED: LABETALOL 5MG/ML SYR 20 MG/4 ML SYRINGE IV PRN (11:45)
[2020-08-18] MEDS ORDERED: ONDANSETRON HCL 4MG/2ML INJ IV PRN (11:45)
[2020-08-18] MEDS ORDERED: LEVOFLOXACIN 500MG PREMIX 100 ML IV SCH (12:00)
[2020-08-18] MEDS ORDERED: LEVOTHYROXINE SODIUM 100 MCG/ VIAL IV SCH (15:00)
[2020-08-18] MEDS: ATORVASTATIN CALCIUM 40MG TABLET PO SCH (21:00)
[2020-08-18] MEDS: MORPHINE SULFATE 2 MG/ML CPJ (NOT FOR IM USE) IV PRN (21:53)
[2020-08-19] VITALS (11 sets, daily range): BP systolic 128–139; BP diastolic 47–88
[2020-08-19] MEDS: METRONIDAZOLE 500 MG PREMIX 100 ML IV SCH ×3 (03:26→18:11)
[2020-08-19] MEDS: MORPHINE SULFATE 2 MG/ML CPJ (NOT FOR IM USE) IV PRN (03:41)
[2020-08-19] MEDS: MORPHINE SULFATE 4 MG/ML CPJ (NOT FOR IM USE) IV PRN ×3 (05:55→15:54)
[2020-08-19 07:01] LABS: HEMATOCRIT. 36.3 % (36.0-48.0); HEMOGLOBIN. 11.4 g/dL (12.0-16.0); MEAN CORPUSCULAR HEMOGLOBIN 25.9 pg (28.0-32.0); MEAN CORPUSCULAR VOLUME 82.7 fL (81.0-99.0); MEAN PLATELET VOLUME 9.5 fl (7.4-10.4); PLATELET 137 x1000/uL (130-400); RED BLOOD CELL COUNT 4.39 mill/uL (4.2-5.4); RED CELL DISTRIBUTION WIDTH 26.9 % (11.6-14.6)
[2020-08-19 07:21] LABS: PHOSPHORUS 1.7 mg/dL (2.5-4.9)
[2020-08-19 08:26] LABS: PLATELET ESTIMATE NORMAL
[2020-08-19] MEDS: DOCUSATE SODIUM 100MG CAPSULE PO SCH ×2 (08:42→16:34)
[2020-08-19] MEDS: DEXT 5%/0.45% NACL 1000ML 1,000 ML IV SCH ×2 (09:05→15:54)
[2020-08-19] MEDS: PANTOPRAZOLE SODIUM 40 MG/VIAL IV SCH (09:06)
[2020-08-19] MEDS: ONDANSETRON HCL 4MG/2ML INJ IV PRN (09:07)
[2020-08-19] MEDS ORDERED: SODIUM PHOS,M-BASIC-D-BASIC 15 MM in DEXT 5% WATER 245 ML IV NR (10:30)
[2020-08-19] MEDS ORDERED: SODIUM PHOS,M-BASIC-D-BASIC 30 MM in DEXT 5% WATER 500 ML IV NR (11:00)
[2020-08-19] MEDS: LEVOTHYROXINE SODIUM 100 MCG/ VIAL IV SCH (12:13)
[2020-08-19] MEDS: ATORVASTATIN CALCIUM 40MG TABLET PO SCH (20:37)
[2020-08-20] VITALS (12 sets, daily range): BP systolic 119–139; BP diastolic 50–72
[2020-08-20] MEDS: DEXT 5%/0.45% NACL 1000ML 1,000 ML IV SCH ×3 (00:48→17:35)
[2020-08-20] MEDS: METRONIDAZOLE 500 MG PREMIX 100 ML IV SCH ×3 (03:06→23:00)
[2020-08-20] MEDS: MORPHINE SULFATE 4 MG/ML CPJ (NOT FOR IM USE) IV PRN ×4 (03:39→17:41)
[2020-08-20 07:05] LABS: HEMATOCRIT. 33.1 % (36.0-48.0); HEMOGLOBIN. 10.5 g/dL (12.0-16.0); MEAN CORPUSCULAR VOLUME 81.9 fL (81.0-99.0); MEAN PLATELET VOLUME 9.4 fl (7.4-10.4); PLATELET 128 x1000/uL (130-400); RED BLOOD CELL COUNT 4.05 mill/uL (4.2-5.4); RED CELL DISTRIBUTION WIDTH 26.9 % (11.6-14.6)
[2020-08-20 07:32] LABS: PHOSPHORUS 1.7 mg/dL (2.5-4.9)
[2020-08-20] MEDS: DOCUSATE SODIUM 100MG CAPSULE PO SCH ×2 (08:55→16:46)
[2020-08-20] MEDS: PANTOPRAZOLE SODIUM 40 MG/VIAL IV SCH (08:55)
[2020-08-20] MEDS: LEVOTHYROXINE SODIUM 100 MCG/ VIAL IV SCH (08:55)
[2020-08-20] MEDS ORDERED: LEVOFLOXACIN 250MG PREMIX 50 ML IV SCH (12:00)
[2020-08-20 12:59] LABS: PLATELET ESTIMATE SLIGHTLY DECREASED
[2020-08-20] MEDS ORDERED: SODIUM PHOS,M-BASIC-D-BASIC 30 MM in DEXT 5% WATER 500 ML IV NR (13:00)
[2020-08-20] MEDS: ATORVASTATIN CALCIUM 40MG TABLET PO SCH (23:00)
[2020-08-21] VITALS (12 sets, daily range): BP systolic 108–150; BP diastolic 55–88
[2020-08-21] MEDS: DEXT 5%/0.45% NACL 1000ML 1,000 ML IV SCH ×3 (01:12→16:43)
[2020-08-21] MEDS: MORPHINE SULFATE 4 MG/ML CPJ (NOT FOR IM USE) IV PRN ×4 (01:30→22:26)
[2020-08-21] MEDS: METRONIDAZOLE 500 MG PREMIX 100 ML IV SCH ×3 (02:14→19:49)
[2020-08-21 06:33] LABS: HEMATOCRIT. 33.9 % (36.0-48.0); HEMOGLOBIN. 10.6 g/dL (12.0-16.0); MEAN CORPUSCULAR HEMOGLOBIN 25.8 pg (28.0-32.0); MEAN CORPUSCULAR VOLUME 82.1 fL (81.0-99.0); PLATELET 135 x1000/uL (130-400); RED BLOOD CELL COUNT 4.12 mill/uL (4.2-5.4); RED CELL DISTRIBUTION WIDTH 26.7 % (11.6-14.6)
[2020-08-21 07:04] LABS: PHOSPHORUS 2.1 mg/dL (2.5-4.9)
[2020-08-21] MEDS: PANTOPRAZOLE SODIUM 40 MG/VIAL IV SCH (09:15)
[2020-08-21] MEDS: DOCUSATE SODIUM 100MG CAPSULE PO SCH ×2 (09:16→17:28)
[2020-08-21] MEDS: MORPHINE SULFATE 2 MG/ML CPJ (NOT FOR IM USE) IV PRN (09:18)
[2020-08-21] MEDS: LEVOTHYROXINE SODIUM 100 MCG/ VIAL IV SCH (09:33)
[2020-08-21 09:34] LABS: PLATELET ESTIMATE NORMAL
[2020-08-21] MEDS ORDERED: POTASSIUM PHOS,M-BASIC-D-BASIC 15 MMOL in DEXT 5% WATER 245 ML IV NR (10:00)
[2020-08-21] MEDS: LEVOFLOXACIN 250MG PREMIX 50 ML IV SCH (11:37)
[2020-08-21] MEDS: ONDANSETRON HCL 4MG/2ML INJ IV PRN (15:09)
[2020-08-21] MEDS: ATORVASTATIN CALCIUM 40MG TABLET PO SCH (22:26)
[2020-08-22] VITALS (12 sets, daily range): BP systolic 120–164; BP diastolic 38–110
[2020-08-22] MEDS: METRONIDAZOLE 500 MG PREMIX 100 ML IV SCH ×3 (02:59→19:14)
[2020-08-22] MEDS: DEXT 5%/0.45% NACL 1000ML 1,000 ML IV SCH ×3 (02:59→17:05)
[2020-08-22] MEDS: ONDANSETRON HCL 4MG/2ML INJ IV PRN (03:00)
[2020-08-22] MEDS: MORPHINE SULFATE 4 MG/ML CPJ (NOT FOR IM USE) IV PRN ×2 (03:02→21:05)
[2020-08-22] MEDS: PANTOPRAZOLE SODIUM 40 MG/VIAL IV SCH (09:24)
[2020-08-22] MEDS: DOCUSATE SODIUM 100MG CAPSULE PO SCH ×2 (09:24→17:05)
[2020-08-22] MEDS: LEVOTHYROXINE SODIUM 100 MCG/ VIAL IV SCH (09:39)
[2020-08-22] MEDS: LEVOFLOXACIN 250MG PREMIX 50 ML IV SCH (10:11)
[2020-08-22 10:26] LABS: BASOPHILS % 0.3 % (0.0-2.0); HEMATOCRIT. 37.1 % (36.0-48.0); HEMOGLOBIN. 11.8 g/dL (12.0-16.0); LYMPHOCYTES % 8.1 % (20.0-50.0); MEAN CORPUSCULAR HEMOGLOBIN 26.1 pg (28.0-32.0); MEAN CORPUSCULAR VOLUME 82.2 fL (81.0-99.0); MEAN PLATELET VOLUME 9.1 fl (7.4-10.4); MONOCYTES % 10.9 % (2.0-8.0); NEUTROPHILS % 77.7 % (40.0-76.0); PLATELET 168 x1000/uL (130-400); RED BLOOD CELL COUNT 4.51 mill/uL (4.2-5.4); RED CELL DISTRIBUTION WIDTH 26.2 % (11.6-14.6)
[2020-08-22 10:45] LABS: PHOSPHORUS 1.5 mg/dL (2.5-4.9)
[2020-08-22] MEDS ORDERED: POTASSIUM PHOS,M-BASIC-D-BASIC 15 MMOL in DEXT 5% WATER 245 ML IV NR (17:30)
[2020-08-22] MEDS: ATORVASTATIN CALCIUM 40MG TABLET PO SCH (21:05)
[2020-08-23] VITALS (12 sets, daily range): BP systolic 112–143; BP diastolic 50–84
[2020-08-23] MEDS: DEXT 5%/0.45% NACL 1000ML 1,000 ML IV SCH ×2 (00:47→08:09)
[2020-08-23] MEDS: METRONIDAZOLE 500 MG PREMIX 100 ML IV SCH ×2 (03:42→10:36)
[2020-08-23 05:45] LABS: HEMATOCRIT. 36.1 % (36.0-48.0); HEMOGLOBIN. 11.7 g/dL (12.0-16.0); MEAN CORPUSCULAR VOLUME 80.2 fL (81.0-99.0); MEAN PLATELET VOLUME 9.4 fl (7.4-10.4); PLATELET 186 x1000/uL (130-400); RED CELL DISTRIBUTION WIDTH 26.2 % (11.6-14.6)
[2020-08-23 06:03] LABS: PHOSPHORUS 1.6 mg/dL (2.5-4.9)
[2020-08-23] MEDS: MORPHINE SULFATE 4 MG/ML CPJ (NOT FOR IM USE) IV PRN (06:17)
[2020-08-23] MEDS: DOCUSATE SODIUM 100MG CAPSULE PO SCH ×2 (08:06→17:00)
[2020-08-23] MEDS: PANTOPRAZOLE SODIUM 40 MG/VIAL IV SCH (08:09)
[2020-08-23] MEDS: LEVOTHYROXINE SODIUM 100 MCG/ VIAL IV SCH (08:09)
[2020-08-23] MEDS: DEXT 5%/0.9% NACL 1,000 ML IV SCH ×2 (10:00→18:15)
[2020-08-23] MEDS ORDERED: MAGNESIUM 2 G PREMIX 50 ML IV ONE (10:00)
[2020-08-23] MEDS ORDERED: MAGNESIUM 2 G PREMIX 50 ML IV NR (11:00)
[2020-08-23] MEDS ORDERED: SODIUM PHOS,M-BASIC-D-BASIC 30 MM in DEXT 5% WATER 500 ML IV NR (11:30)
[2020-08-23] MEDS: LEVOFLOXACIN 250MG PREMIX 50 ML IV SCH (11:43)
[2020-08-23] MEDS: ATORVASTATIN CALCIUM 40MG TABLET PO SCH (20:22)
[2020-08-23 21:47] LABS: PLATELET ESTIMATE NORMAL
[2020-08-24] VITALS (14 sets, daily range): BP systolic 122–149; BP diastolic 52–99
[2020-08-24] MEDS: ONDANSETRON HCL 4MG/2ML INJ IV PRN ×3 (00:08→23:43)
[2020-08-24] MEDS: DEXT 5%/0.9% NACL 1,000 ML IV SCH ×3 (02:33→17:40)
[2020-08-24 07:23] LABS: BASOPHILS % 0.3 % (0.0-2.0); EOSINOPHILS % 1.5 % (0.0-5.0); HEMATOCRIT. 37.7 % (36.0-48.0); HEMOGLOBIN. 12.1 g/dL (12.0-16.0); LYMPHOCYTES % 8.3 % (20.0-50.0); MEAN CORPUSCULAR VOLUME 81.1 fL (81.0-99.0); MEAN PLATELET VOLUME 9.8 fl (7.4-10.4); MONOCYTES % 7.6 % (2.0-8.0); NEUTROPHILS % 82.3 % (40.0-76.0); PLATELET 215 x1000/uL (130-400); RED BLOOD CELL COUNT 4.64 mill/uL (4.2-5.4); RED CELL DISTRIBUTION WIDTH 25.8 % (11.6-14.6)
[2020-08-24 07:44] LABS: PHOSPHORUS 1.7 mg/dL (2.5-4.9)
[2020-08-24] MEDS: DOCUSATE SODIUM 100MG CAPSULE PO SCH ×2 (08:23→16:34)
[2020-08-24] MEDS: PANTOPRAZOLE SODIUM 40 MG/VIAL IV SCH (08:27)
[2020-08-24] MEDS: LEVOTHYROXINE SODIUM 100 MCG/ VIAL IV SCH (08:27)
[2020-08-24] MEDS ORDERED: ONDANSETRON HCL 4MG/2ML INJ IM NR (12:30)
[2020-08-24] MEDS ORDERED: POTASSIUM PHOS,M-BASIC-D-BASIC 20 MMOL in DEXT 5% WATER 243.3333 ML IV NR ×2 (13:00→18:00)
[2020-08-25] VITALS (14 sets, daily range): BP systolic 118–150; BP diastolic 36–87
[2020-08-25] MEDS: DEXT 5%/0.9% NACL 1,000 ML IV SCH ×2 (03:01→16:00)
[2020-08-25] MEDS: ONDANSETRON HCL 4MG/2ML INJ IV PRN ×2 (04:26→09:28)
[2020-08-25 06:11] LABS: BASOPHILS % 0.4 % (0.0-2.0); EOSINOPHILS % 1.8 % (0.0-5.0); LYMPHOCYTES % 10.3 % (20.0-50.0); MEAN CORPUSCULAR HEMOGLOBIN 26.2 pg (28.0-32.0); MEAN CORPUSCULAR VOLUME 80.9 fL (81.0-99.0); MEAN PLATELET VOLUME 9.5 fl (7.4-10.4); MONOCYTES % 6.2 % (2.0-8.0); NEUTROPHILS % 81.3 % (40.0-76.0); PLATELET 224 x1000/uL (130-400); RED BLOOD CELL COUNT 4.57 mill/uL (4.2-5.4); RED CELL DISTRIBUTION WIDTH 26.3 % (11.6-14.6)
[2020-08-25 06:26] LABS: CHLORIDE 108 mEq/L (98-107)
[2020-08-25 06:39] LABS: AMYLASE 56 IU/L (25-115); PHOSPHORUS 2.4 mg/dL (2.5-4.9)
[2020-08-25] MEDS: LEVOTHYROXINE SODIUM 100 MCG/ VIAL IV SCH (09:27)
[2020-08-25] MEDS: PANTOPRAZOLE SODIUM 40 MG/VIAL IV SCH (09:27)
[2020-08-25] MEDS: DOCUSATE SODIUM 100MG CAPSULE PO SCH ×2 (09:27→17:00)
[2020-08-26] VITALS (10 sets, daily range): BP systolic 133–152; BP diastolic 54–101
[2020-08-26] MEDS: DEXT 5%/0.9% NACL 1,000 ML IV SCH ×3 (02:12→22:43)
[2020-08-26] MEDS: ONDANSETRON HCL 4MG/2ML INJ IV PRN ×3 (02:12→16:58)
[2020-08-26 06:31] LABS: BASOPHILS % 0.8 % (0.0-2.0); EOSINOPHILS % 2.2 % (0.0-5.0); HEMATOCRIT. 32.9 % (36.0-48.0); HEMOGLOBIN. 10.6 g/dL (12.0-16.0); LYMPHOCYTES % 11.3 % (20.0-50.0); MEAN CORPUSCULAR HEMOGLOBIN 26.1 pg (28.0-32.0); MEAN CORPUSCULAR VOLUME 80.6 fL (81.0-99.0); MEAN PLATELET VOLUME 9.1 fl (7.4-10.4); MONOCYTES % 6.9 % (2.0-8.0); NEUTROPHILS % 78.8 % (40.0-76.0); PLATELET 207 x1000/uL (130-400); RED BLOOD CELL COUNT 4.08 mill/uL (4.2-5.4); RED CELL DISTRIBUTION WIDTH 25.8 % (11.6-14.6)
[2020-08-26] MEDS: DOCUSATE SODIUM 100MG CAPSULE PO SCH ×2 (09:00→17:00)
[2020-08-26] MEDS: LEVOTHYROXINE SODIUM 100 MCG/ VIAL IV SCH (09:04)
[2020-08-26] MEDS: PANTOPRAZOLE SODIUM 40 MG/VIAL IV SCH (09:04)
[2020-08-26] MEDS ORDERED: POTASSIUM CHLORIDE INJ 40 MEQ in DEXT 5% WATER 500 ML IV SCH (11:00)
[2020-08-26] MEDS ORDERED: METOPROLOL TARTRATE 5MG/5ML VIAL IV PRN (12:00)
[2020-08-26] MEDS ORDERED: DEXT 5% IV PRN (12:15)
[2020-08-26] MEDS ORDERED: WATER IV PRN (12:15)
[2020-08-26] MEDS ORDERED: METOPROLOL TARTRATE IV PRN (12:15)
[2020-08-26] MEDS ORDERED: DIATR MEGLU/DIATRIZOATE SOLN 30ML PO NR (12:42)
[2020-08-26] MEDS ORDERED: DIATR MEGLU/DIATRIZOATE SOLN 120ML ONE (13:21)
[2020-08-26] MEDS: MORPHINE SULFATE 2 MG/ML CPJ (NOT FOR IM USE) IV PRN ×2 (16:58→22:44)
[2020-08-27] VITALS: BP 153/65
[2020-08-27] MEDS: MORPHINE SULFATE 2 MG/ML CPJ (NOT FOR IM USE) IV PRN ×3 (03:39→13:21)
[2020-08-27] MEDS: ONDANSETRON HCL 4MG/2ML INJ IV PRN ×4 (03:39→17:26)
[2020-08-27 04:00] VITALS: BP 180/76
[2020-08-27 08:00] VITALS: BP 163/67
[2020-08-27] MEDS: PANTOPRAZOLE SODIUM 40 MG/VIAL IV SCH (08:36)
[2020-08-27] MEDS: LEVOTHYROXINE SODIUM 100 MCG/ VIAL IV SCH (08:37)
[2020-08-27] MEDS: DOCUSATE SODIUM 100MG CAPSULE PO SCH ×2 (08:49→17:00)
[2020-08-27] MEDS: DEXT 5%/0.9% NACL 1,000 ML IV SCH (08:54)
[2020-08-27 12:00] VITALS: BP 161/63
[2020-08-27] MEDS ORDERED: DEXT 5% IV SCH (13:00)
[2020-08-27] MEDS ORDERED: WATER IV SCH (13:00)
[2020-08-27] MEDS ORDERED: METOPROLOL TARTRATE IV SCH (13:00)
[2020-08-27] MEDS: DEXT 5%/0.45% NACL 1000ML 1,000 ML IV SCH ×2 (14:44→22:36)
[2020-08-27 16:00] VITALS: BP 129/69
[2020-08-27] MEDS: WATER IV SCH (17:27)
[2020-08-27] MEDS: DEXT 5% IV SCH (17:27)
[2020-08-27] MEDS: METOPROLOL TARTRATE IV SCH (17:27)
[2020-08-27] MEDS ORDERED: LIDOCAINE HCL 2% JELLY 5ML MM NR (18:00)
[2020-08-27 20:46] VITALS: BP 139/68
[2020-08-28 00:17] VITALS: BP 163/66
[2020-08-28] MEDS: MORPHINE SULFATE 2 MG/ML CPJ (NOT FOR IM USE) IV PRN ×3 (00:19→14:13)
[2020-08-28 04:45] VITALS: BP 164/57
[2020-08-28 05:54] LABS: CHLORIDE 111 mEq/L (98-107)
[2020-08-28] MEDS: WATER IV SCH ×3 (06:00)
[2020-08-28] MEDS: METOPROLOL TARTRATE IV SCH ×3 (06:00)
[2020-08-28] MEDS: DEXT 5% IV SCH ×3 (06:00)
[2020-08-28] MEDS ORDERED: ENALAPRIL 2.5MG/2ML VIAL 2ML IV PRN (06:15)
[2020-08-28] MEDS ORDERED: HYDRALAZINE 20MG/ML VIAL IV PRN ×2 (06:15→07:45)
[2020-08-28] MEDS: DEXT 5%/0.45% NACL 1000ML 1,000 ML IV SCH ×3 (06:25→20:48)
[2020-08-28 08:00] VITALS: BP 143/84
[2020-08-28] MEDS: DOCUSATE SODIUM 100MG CAPSULE PO SCH ×2 (08:53→16:16)
[2020-08-28] MEDS: PANTOPRAZOLE SODIUM 40 MG/VIAL IV SCH (08:53)
[2020-08-28] MEDS: LEVOTHYROXINE SODIUM 100 MCG/ VIAL IV SCH (08:55)
[2020-08-28 12:00] VITALS: BP 151/65
[2020-08-28 12:23] LABS: CHLORIDE 107 mEq/L (98-107)
[2020-08-28 12:29] LABS: PHOSPHORUS 1.8 mg/dL (2.5-4.9)
[2020-08-28] MEDS: METOPROLOL TARTRATE 5MG/5ML VIAL IV SCH ×2 (12:55→18:10)
[2020-08-28] MEDS: ENOXAPARIN 30MG/0.3ML SYR SUBCUT SCH (13:34)
[2020-08-28 16:00] VITALS: BP 142/58
[2020-08-28] MEDS ORDERED: MAGNESIUM 2 G PREMIX 50 ML IV SCH (17:00)
[2020-08-28] MEDS ORDERED: POTASSIUM PHOS,M-BASIC-D-BASIC 20 MMOL in DEXT 5% WATER 243.3333 ML IV SCH (17:00)
[2020-08-28 20:00] VITALS: BP 157/75
[2020-08-29] VITALS: BP 143/72
[2020-08-29] MEDS: METOPROLOL TARTRATE 5MG/5ML VIAL IV SCH ×4 (00:50→17:29)
[2020-08-29 04:00] VITALS: BP 148/71
[2020-08-29] MEDS: DEXT 5%/0.45% NACL 1000ML 1,000 ML IV SCH ×3 (05:47→21:28)
[2020-08-29 06:16] LABS: BASOPHILS % 1.7 % (0.0-2.0); EOSINOPHILS % 1.7 % (0.0-5.0); HEMATOCRIT. 37.2 % (36.0-48.0); LYMPHOCYTES % 9.5 % (20.0-50.0); MEAN CORPUSCULAR VOLUME 80.5 fL (81.0-99.0); MEAN PLATELET VOLUME 9.1 fl (7.4-10.4); MONOCYTES % 8.4 % (2.0-8.0); NEUTROPHILS % 78.7 % (40.0-76.0); PLATELET 232 x1000/uL (130-400); RED BLOOD CELL COUNT 4.62 mill/uL (4.2-5.4)
[2020-08-29] MEDS: MORPHINE SULFATE 2 MG/ML CPJ (NOT FOR IM USE) IV PRN ×2 (06:59→16:59)
[2020-08-29 08:00] VITALS: BP 149/54
[2020-08-29] MEDS: DOCUSATE SODIUM 100MG CAPSULE PO SCH ×2 (09:00→16:09)
[2020-08-29] MEDS: PANTOPRAZOLE SODIUM 40 MG/VIAL IV SCH (09:09)
[2020-08-29] MEDS: LEVOTHYROXINE SODIUM 100 MCG/ VIAL IV SCH (09:09)
[2020-08-29 12:00] VITALS: BP 131/63
[2020-08-29] MEDS: ENOXAPARIN 30MG/0.3ML SYR SUBCUT SCH (13:01)
[2020-08-29 16:00] VITALS: BP 153/60
[2020-08-29 19:54] LABS: CHLORIDE 104 mEq/L (98-107)
[2020-08-29 20:00] VITALS: BP 126/56
[2020-08-29] MEDS ORDERED: POTASSIUM PHOS,M-BASIC-D-BASIC 15 MMOL in DEXT 5% WATER 245 ML IV NR (22:00)
[2020-08-29] MEDS ORDERED: MAGNESIUM 2 G PREMIX 50 ML IV NR (22:00)
[2020-08-30] VITALS: BP 144/60
[2020-08-30] MEDS: METOPROLOL TARTRATE 5MG/5ML VIAL IV SCH ×4 (00:53→20:57)
[2020-08-30] MEDS: MORPHINE SULFATE 2 MG/ML CPJ (NOT FOR IM USE) IV PRN ×5 (01:51→18:22)
[2020-08-30 04:00] VITALS: BP 111/58
[2020-08-30] MEDS: DEXT 5%/0.45% NACL 1000ML 1,000 ML IV SCH ×3 (05:09→18:09)
[2020-08-30 08:00] VITALS: BP 171/66
[2020-08-30] MEDS: DOCUSATE SODIUM 100MG CAPSULE PO SCH ×2 (09:00→18:09)
[2020-08-30] MEDS: PANTOPRAZOLE SODIUM 40 MG/VIAL IV SCH (09:36)
[2020-08-30] MEDS: LEVOTHYROXINE SODIUM 100 MCG/ VIAL IV SCH (09:37)
[2020-08-30 12:00] VITALS: BP 172/74
[2020-08-30] MEDS: ENOXAPARIN 30MG/0.3ML SYR SUBCUT SCH (14:05)
[2020-08-30 16:00] VITALS: BP 133/64
[2020-08-30 20:00] VITALS: BP 155/60
[2020-08-30] MEDS ORDERED: METOPROLOL TARTRATE 5MG/5ML VIAL IV SCH (20:00)
[2020-08-30] MEDS: KETOROLAC TROMETHAMINE 0.4% OPHTH 5ML EACHEYE SCH (20:57)
[2020-08-30] MEDS: ERYTHROMYCIN BASE 0.5% OPHTH OINT 3.5GM EACHEYE SCH (20:57)
[2020-08-31] VITALS (7 sets, daily range): BP systolic 116–148; BP diastolic 45–74
[2020-08-31] MEDS ORDERED: MORPHINE SULFATE 2 MG/ML CPJ (NOT FOR IM USE) IV PRN (01:34)
[2020-08-31] MEDS: METOPROLOL TARTRATE 5MG/5ML VIAL IV SCH ×4 (01:49→20:22)
[2020-08-31] MEDS: DEXT 5%/0.45% NACL 1000ML 1,000 ML IV SCH ×3 (01:50→21:55)
[2020-08-31] MEDS: DOCUSATE SODIUM 100MG CAPSULE PO SCH ×2 (09:31→17:00)
[2020-08-31] MEDS: PANTOPRAZOLE SODIUM 40 MG/VIAL IV SCH (09:31)
[2020-08-31] MEDS: ENOXAPARIN 40MG/0.4ML SYR SUBCUT SCH (09:38)
[2020-08-31] MEDS: KETOROLAC TROMETHAMINE 0.4% OPHTH 5ML EACHEYE SCH ×4 (10:05→20:27)
[2020-08-31] MEDS: LEVOTHYROXINE SODIUM 100 MCG/ VIAL IV SCH (10:05)
[2020-08-31] MEDS: ERYTHROMYCIN BASE 0.5% OPHTH OINT 3.5GM EACHEYE SCH ×2 (10:06→18:00)
[2020-08-31] MEDS: HYDROCODONE/ACETAMINOPHEN 5/325MG TABLET PO PRN ×2 (11:18→22:10)
[2020-09-01 00:14] VITALS: BP 141/44
[2020-09-01] MEDS: METOPROLOL TARTRATE 5MG/5ML VIAL IV SCH ×4 (03:02→20:55)
[2020-09-01 04:00] VITALS: BP 138/68
[2020-09-01] MEDS: DEXT 5%/0.45% NACL 1000ML 1,000 ML IV SCH ×3 (05:54→21:30)
[2020-09-01 06:50] LABS: BASOPHILS % 1.3 % (0.0-2.0); EOSINOPHILS % 0.8 % (0.0-5.0); HEMATOCRIT. 35.4 % (36.0-48.0); HEMOGLOBIN. 11.4 g/dL (12.0-16.0); LYMPHOCYTES % 10.7 % (20.0-50.0); MEAN CORPUSCULAR HEMOGLOBIN 26.3 pg (28.0-32.0); MEAN CORPUSCULAR VOLUME 81.7 fL (81.0-99.0); MONOCYTES % 12.7 % (2.0-8.0); NEUTROPHILS % 74.5 % (40.0-76.0); PLATELET 215 x1000/uL (130-400); RED BLOOD CELL COUNT 4.34 mill/uL (4.2-5.4); RED CELL DISTRIBUTION WIDTH 24.3 % (11.6-14.6)
[2020-09-01] MEDS: HYDROCODONE/ACETAMINOPHEN 5/325MG TABLET PO PRN (07:10)
[2020-09-01 07:11] LABS: CHLORIDE 100 mEq/L (98-107)
[2020-09-01 07:34] LABS: T4 FREE 0.93 ng/dL (0.76-1.46)
[2020-09-01 08:08] VITALS: BP 145/42
[2020-09-01] MEDS: DOCUSATE SODIUM 100MG CAPSULE PO SCH ×2 (09:00→17:00)
[2020-09-01] MEDS: LEVOTHYROXINE SODIUM 100 MCG/ VIAL IV SCH (10:08)
[2020-09-01] MEDS: PANTOPRAZOLE SODIUM 40 MG/VIAL IV SCH (10:08)
[2020-09-01] MEDS: ENOXAPARIN 40MG/0.4ML SYR SUBCUT SCH (10:08)
[2020-09-01] MEDS: ERYTHROMYCIN BASE 0.5% OPHTH OINT 3.5GM EACHEYE SCH ×2 (10:09→21:13)
[2020-09-01] MEDS: KETOROLAC TROMETHAMINE 0.4% OPHTH 5ML EACHEYE SCH ×2 (10:10→18:28)
[2020-09-01] MEDS ORDERED: POTASSIUM-SODIUM PHOSPHATE POWDER PACKET PO NR (11:06)
[2020-09-01 12:01] VITALS: BP 112/46
[2020-09-01 16:17] VITALS: BP 133/55
[2020-09-01 20:00] VITALS: BP 148/48
[2020-09-02] VITALS (7 sets, daily range): BP systolic 133–149; BP diastolic 6–84
[2020-09-02] MEDS: METOPROLOL TARTRATE 5MG/5ML VIAL IV SCH ×4 (02:20→20:00)
[2020-09-02] MEDS: DEXT 5%/0.45% NACL 1000ML 1,000 ML IV SCH ×3 (05:43→21:14)
[2020-09-02] MEDS: DOCUSATE SODIUM 100MG CAPSULE PO SCH ×2 (09:00→17:00)
[2020-09-02] MEDS: PANTOPRAZOLE SODIUM 40 MG/VIAL IV SCH (09:42)
[2020-09-02] MEDS: LEVOTHYROXINE SODIUM 100 MCG/ VIAL IV SCH (09:43)
[2020-09-02] MEDS: ENOXAPARIN 40MG/0.4ML SYR SUBCUT SCH (09:45)
[2020-09-02] MEDS: HYDROCODONE/ACETAMINOPHEN 5/325MG TABLET PO PRN ×2 (09:46→21:25)
[2020-09-02] MEDS: KETOROLAC TROMETHAMINE 0.4% OPHTH 5ML EACHEYE SCH ×2 (10:04→17:01)
[2020-09-02] MEDS ORDERED: LEVO50TA MT (12:42)
[2020-09-02] MEDS ORDERED: AMLO10TA80 MT (12:42)
[2020-09-02] MEDS ORDERED: HYDR-4001 MT (13:34)
[2020-09-02] MEDS ORDERED: *PATIENT'S OWN MEDICATION STORAGE XX SCH (19:15)
[2020-09-02] MEDS: ERYTHROMYCIN BASE 0.5% OPHTH OINT 3.5GM EACHEYE SCH (21:16)
[2020-09-03 00:48] VITALS: BP 139/55
[2020-09-03] MEDS: METOPROLOL TARTRATE 5MG/5ML VIAL IV SCH ×3 (01:57→14:00)
[2020-09-03 04:00] VITALS: BP 142/51
[2020-09-03] MEDS: HYDROCODONE/ACETAMINOPHEN 5/325MG TABLET PO PRN (06:47)
[2020-09-03] MEDS: DEXT 5%/0.45% NACL 1000ML 1,000 ML IV SCH ×2 (06:47→13:45)
[2020-09-03 07:34] LABS: HEMATOCRIT. 33.5 % (36.0-48.0); HEMOGLOBIN. 10.9 g/dL (12.0-16.0); MEAN CORPUSCULAR HEMOGLOBIN 26.3 pg (28.0-32.0); MEAN PLATELET VOLUME 9.6 fl (7.4-10.4); PLATELET 268 x1000/uL (130-400); RED BLOOD CELL COUNT 4.13 mill/uL (4.2-5.4); RED CELL DISTRIBUTION WIDTH 23.6 % (11.6-14.6)
[2020-09-03 07:42] LABS: CHLORIDE 101 mEq/L (98-107)
[2020-09-03 08:00] VITALS: BP 149/53
[2020-09-03] MEDS: DOCUSATE SODIUM 100MG CAPSULE PO SCH (09:00)
[2020-09-03] MEDS: LEVOTHYROXINE SODIUM 100 MCG/ VIAL IV SCH (09:10)
[2020-09-03] MEDS: PANTOPRAZOLE SODIUM 40 MG/VIAL IV SCH (09:10)
[2020-09-03] MEDS: ENOXAPARIN 40MG/0.4ML SYR SUBCUT SCH (09:10)
[2020-09-03] MEDS: KETOROLAC TROMETHAMINE 0.4% OPHTH 5ML EACHEYE SCH (09:10)
[2020-09-03 10:22] LABS: NUCLEATED RED BLOOD CELLS 1 /100 WBC
[2020-09-03 10:23] LABS: PLATELET ESTIMATE NORMAL
[2020-09-03 12:00] VITALS: BP 145/54
[2020-09-03 14:43] VITALS: BP 132/55
== END 2020-09-03 17:04 | disposition home health service (06) | DRG 335 ==
LOC: ER 02:44 → 6EST 05:39 → ENRESERV 07:24 → 8WST 16:08 → 5EST 08-18 18:45 → 6EST 08-26 11:41 → 6WST 08-27 15:52
PROVIDERS: ADMIT Internal Medicine; ATTEND Internal Medicine
PROC: 0D9670Z Drainage of Stomach with Drainage Device, Via Natural or Artificial Opening (ICD-10-PCS; principal; 2020-08-17)
PROC: 0DN80ZZ Release Small Intestine, Open Approach (ICD-10-PCS; 2020-08-18)
PROC: 0DNW0ZZ Release Peritoneum, Open Approach (ICD-10-PCS; 2020-08-18)
DX: K56.699 Other intestinal obstruction unspecified as to partial versus complete obstruction (principal); N17.0 Acute kidney failure with tubular necrosis; J18.9 Pneumonia, unspecified organism; J90 Pleural effusion, not elsewhere classified; E87.1 Hypo-osmolality and hyponatremia; E87.0 Hyperosmolality and hypernatremia; J44.0 Chronic obstructive pulmonary disease with (acute) lower respiratory infection; K91.89 Other postprocedural complications and disorders of digestive system; K57.90 Diverticulosis of intestine, part unspecified, without perforation or abscess without bleeding; K59.03 Drug induced constipation; J44.9 Chronic obstructive pulmonary disease, unspecified; I35.1 Nonrheumatic aortic (valve) insufficiency; I27.20 Pulmonary hypertension, unspecified; D25.9 Leiomyoma of uterus, unspecified; D50.9 Iron deficiency anemia, unspecified; E78.5 Hyperlipidemia, unspecified; E89.0 Postprocedural hypothyroidism; I07.1 Rheumatic tricuspid insufficiency; I10 Essential (primary) hypertension; K44.9 Diaphragmatic hernia without obstruction or gangrene; M43.16 Spondylolisthesis, lumbar region; N26.1 Atrophy of kidney (terminal); N28.1 Cyst of kidney, acquired; T40.605A Adverse effect of unspecified narcotics, initial encounter; E83.39 Other disorders of phosphorus metabolism; E83.42 Hypomagnesemia; I25.10 Atherosclerotic heart disease of native coronary artery without angina pectoris; K21.9 Gastro-esophageal reflux disease without esophagitis; R00.1 Bradycardia, unspecified; R73.9 Hyperglycemia, unspecified; K66.0 Peritoneal adhesions (postprocedural) (postinfection); M48.061 Spinal stenosis, lumbar region without neurogenic claudication; M19.90 Unspecified osteoarthritis, unspecified site; T18.3XXA Foreign body in small intestine, initial encounter; K29.50 Unspecified chronic gastritis without bleeding; X58.XXXA Exposure to other specified factors, initial encounter; Z20.828 Contact with and (suspected) exposure to other viral communicable diseases; Z88.0 Allergy status to penicillin; Z88.2 Allergy status to sulfonamides; Z91.013 Allergy to seafood; Z79.891 Long term (current) use of opiate analgesic; Z88.8 Allergy status to other drugs, medicaments and biological substances; Z79.1 Long term (current) use of non-steroidal anti-inflammatories (NSAID); Z82.49 Family history of ischemic heart disease and other diseases of the circulatory system; Z79.899 Other long term (current) drug therapy; Y93.89 Activity, other specified; Y92.89 Other specified places as the place of occurrence of the external cause; Y99.8 Other external cause status; R07.89 Other chest pain
CPT/HCPCS: 36415; 36600; 71045; 74018; 74176; 74250; 76770; 80048; 80053; 80061; 80305; 81003; 82150; 82270; 82375; 82728; 82805; 83540; 83550; 83605; 83735; 84100; 84439; 84443; 84481; 84484; 85025; 86850; 86900; 87426; 90686; 93005; 93970; 97116; 97162; 97166; 97168; 97530; 99291; C9113; J0282; J1170; J1650; J1956; J2270; J2405; J2704; J2710; J3475; J3480; J3490; J7042; J7060; P9041; Q9963; A4315

== ENCOUNTER 2022-07-08 13:56 | Inpatient (IN) | payer MEDICARE, MEDICAID ==
[~2022-07-08] VITALS: Ht 165.1 cm; Wt 73.9 kg
[~2022-07-08 13:56] MED LIST changes: +AMLO10TA80 MT; +ATROV INH; -FURO-152 MT; +HYDR-4001 MT; +KETO5DRO80 EACHEYE; +LEVO50TA MT; +MELO15TA13 PO; +PANT40TA51 PO
[2022-07-08] MEDS ORDERED: SODIUM CHLORIDE 0.9% 1,000 ML IV ONE ×2 (15:30→20:00)
[2022-07-08 15:53] LABS: BASOPHILS % 2.5 % (0.0-2.0); EOSINOPHILS % 5.8 % (0.0-5.0); LYMPHOCYTES % 21.8 % (20.0-50.0); MEAN CORPUSCULAR HEMOGLOBIN 18.9 pg (28.0-32.0); MEAN CORPUSCULAR VOLUME 66.6 fL (81.0-99.0); MEAN PLATELET VOLUME 9.3 fl (7.4-10.4); MONOCYTES % 13.7 % (2.0-8.0); NEUTROPHILS % 56.2 % (40.0-76.0); PLATELET 194 x1000/uL (130-400); RED CELL DISTRIBUTION WIDTH 22.4 % (11.6-14.6)
[2022-07-08 15:59] LABS: CHLORIDE 107 mEq/L (98-107)
[2022-07-08 16:06] LABS: CLARITY URINE CLEAR (CLEAR); COLOR URINE YELLOW (YELLOW); KETONES URINE NEGATIVE (NEGATIVE); LEUKOCYTE ESTERASE URINE TRACE (NEGATIVE); NITRITE URINE NEGATIVE (NEGATIVE); OCCULT BLOOD URINE NEGATIVE (NEGATIVE); PH URINE 5.5 (4.5-8.0); PROTEIN URINE NEGATIVE (NEGATIVE); SPECIFIC GRAVITY URINE 1.007 (1.005-1.030); UROBILINOGEN URINE 0.2 E.U./dL (0.2-1.0)
[2022-07-08 16:11] LABS: HEMATOCRIT. 22.7 % (36.0-48.0); HEMOGLOBIN. 6.4 g/dL (12.0-16.0)
[2022-07-08 17:14] LABS: PLATELET ESTIMATE NORMAL
[2022-07-08] MEDS ORDERED: FUROSEMIDE 40MG/4ML VIAL IVP ONE (17:45)
[2022-07-08] MEDS ORDERED: NITROGLYCERIN OINT 1GM/INCH UDPKT TD ONE (17:45)
[2022-07-08] MEDS ORDERED: PROPOFOL 10MG/ML 100ML 100 ML IV STA (19:14)
[2022-07-08 19:48] LABS: BG CARBOXYHEMOGLOBIN 1.6 % (0.5-1.5); BG DEOXYHEMOGLOBIN 0.3 % (0.0-5.0); BG FRACTION INSPIRED OXYGEN 100; BG HCO3 ACT 20.5 mmol/L (22.0-26.0); BG METHEMOGLOBIN 0.4 % (0.0-1.5); BG OXYGEN SATURATION 99.7 % (92.0-98.5); BG OXYHEMOGLOBIN 97.7 % (94.0-97.0); BG PCO2 59.6 mmHg (35.0-45.0); BG PH 7.155 (7.350-7.450); BG PO2 329.1 mmHg (75.0-100.0); BG SAMPLE SITE RIGHT RADIAL
[2022-07-08] MEDS ORDERED: MIDAZOLAM HCL 100 MG in SODIUM CHLORIDE 0.9% 100 ML IV PRN (22:45)
[2022-07-09] VITALS (33 sets, daily range): BP systolic 119–184; BP diastolic 46–78
[2022-07-09] MEDS ORDERED: PROPOFOL 10 MG/ML 100 ML IV PRN (01:30)
[2022-07-09] MEDS ORDERED: FENTANYL CITRATE/PF 1,000 MCG in SODIUM CHLORIDE 0.9% 80 ML IV PRN (09:15)
[2022-07-09 09:16] LABS: BG BASE EXCESS 7.1 mmol/L (-2.0-2.0); BG CARBOXYHEMOGLOBIN 0.3 % (0.5-1.5); BG DEOXYHEMOGLOBIN 0.9 % (0.0-5.0); BG FRACTION INSPIRED OXYGEN 70; BG HCO3 ACT 31.1 mmol/L (22.0-26.0); BG METHEMOGLOBIN 0.4 % (0.0-1.5); BG OXYGEN SATURATION 99.1 % (92.0-98.5); BG OXYHEMOGLOBIN 98.4 % (94.0-97.0); BG PCO2 41.7 mmHg (35.0-45.0); BG PO2 188.2 mmHg (75.0-100.0); BG SAMPLE SITE LEFT BRACHIAL; BG TOTAL HEMOGLOBIN 9.6 g/dL (12.0-18.0); BG VENT MODE VENT - AC
[2022-07-09] MEDS ORDERED: HYDROCODONE/ACETAMINOPHEN 5/325MG TABLET PO PRN (10:30)
[2022-07-09] MEDS ORDERED: ONDANSETRON HCL 4MG/2ML INJ IV PRN (10:30)
[2022-07-09] MEDS ORDERED: MAGNESIUM/ALUMINUM HYDROXIDE/SIMETHICONE 30ML UDC PO PRN (10:30)
[2022-07-09] MEDS ORDERED: NALOXONE HCL 0.4MG/ML VIAL IV PRN (10:45)
[2022-07-09] MEDS: PANTOPRAZOLE SODIUM 40 MG/VIAL IV SCH ×2 (11:05→20:28)
[2022-07-09] MEDS: HYDRALAZINE 20MG/ML VIAL IV PRN (11:06)
[2022-07-09 11:27] LABS: HEMATOCRIT. 29.8 % (36.0-48.0); HEMOGLOBIN. 8.6 g/dL (12.0-16.0); MEAN CORPUSCULAR HEMOGLOBIN 19.8 pg (28.0-32.0); MEAN CORPUSCULAR VOLUME 68.8 fL (81.0-99.0); MEAN PLATELET VOLUME 9.3 fl (7.4-10.4); PLATELET 207 x1000/uL (130-400); RED BLOOD CELL COUNT 4.33 mill/uL (4.2-5.4); RED CELL DISTRIBUTION WIDTH 24.8 % (11.6-14.6)
[2022-07-09 11:38] LABS: CHLORIDE 107 mEq/L (98-107)
[2022-07-09 11:45] LABS: TOTAL IRON BINDING CAPACITY 394 ug/dL (250-450)
[2022-07-09] MEDS ORDERED: NITROGLYCERIN 50MG PREMIX 250 ML IV SCH (11:45)
[2022-07-09 12:14] LABS: PLATELET ESTIMATE NORMAL
[2022-07-09] MEDS ORDERED: DIATR MEGLU/DIATRIZOATE SOLN 30ML PO SCH (12:30)
[2022-07-09 14:26] LABS: *AMPHETAMINES SCREEN URINE NEGATIVE (NEGATIVE); *BARBITURATES SCREEN URINE NEGATIVE (NEGATIVE); *BENZODIAZEPINES SCREEN URINE PRESUMTIVE POSITIVE (NEGATIVE); *COCAINE SCREEN URINE NEGATIVE (NEGATIVE); CANNABINOID URINE SCREEN NEGATIVE (NEGATIVE); METHADONE URINE SCREEN NEGATIVE (NEGATIVE); OPIATES URINE SCREEN NEGATIVE (NEGATIVE); PHENCYCLIDINE URINE SCREEN NEGATIVE (NEGATIVE)
[2022-07-09] MEDS: FENTANYL 2500MCG/250ML PMX 250 ML IV PRN (14:36)
[2022-07-09] MEDS ORDERED: VANCOMYCIN 1,500 MG in DEXT 5% WATER 250 ML IV NR (15:00)
[2022-07-09] MEDS: SODIUM CHLORIDE 0.9% 1,000 ML IV SCH (17:00)
[2022-07-09] MEDS ORDERED: IOHEXOL-300 100 ML BOTTLE ONE (17:51)
[2022-07-09 19:43] LABS: HEMATOCRIT 28.8 % (36.0-48.0); HEMOGLOBIN 7.9 g/dL (12.0-16.0); MEAN CORPUSCULAR HEMOGLOBIN 19.9 pg (28.0-32.0); MEAN CORPUSCULAR VOLUME 73.1 fL (81.0-99.0); RED BLOOD CELL COUNT 3.95 mill/uL (4.2-5.4); RED CELL DISTRIBUTION WIDTH 25.1 % (11.6-14.6)
[2022-07-09] MEDS: IPRATROPIUM/ALBUTEROL 0.5-3(2.5)MG/3ML NEB HHN SCH (20:12)
[2022-07-09 22:36] LABS: PLATELET 157 x1000/uL (130-400)
[2022-07-10] VITALS (47 sets, daily range): BP systolic 115–162; BP diastolic 43–99
[2022-07-10 01:13] LABS: MEAN CORPUSCULAR HEMOGLOBIN 20.1 pg (28.0-32.0); MEAN CORPUSCULAR VOLUME 67.6 fL (81.0-99.0); PLATELET 200 x1000/uL (130-400); RED BLOOD CELL COUNT 3.99 mill/uL (4.2-5.4); RED CELL DISTRIBUTION WIDTH 24.9 % (11.6-14.6)
[2022-07-10] MEDS: IPRATROPIUM/ALBUTEROL 0.5-3(2.5)MG/3ML NEB HHN SCH ×4 (01:54→20:20)
[2022-07-10] MEDS: MIDAZOLAM HCL 100 MG in SODIUM CHLORIDE 0.9% 80 ML IV PRN (05:23)
[2022-07-10 06:11] LABS: BASOPHILS % 1.1 % (0.0-2.0); EOSINOPHILS % 2.3 % (0.0-5.0); HEMATOCRIT. 26.2 % (36.0-48.0); HEMOGLOBIN. 7.8 g/dL (12.0-16.0); LYMPHOCYTES % 7.8 % (20.0-50.0); MEAN CORPUSCULAR VOLUME 67.5 fL (81.0-99.0); MEAN PLATELET VOLUME 9.9 fl (7.4-10.4); MONOCYTES % 9.7 % (2.0-8.0); NEUTROPHILS % 79.1 % (40.0-76.0); PLATELET 192 x1000/uL (130-400); RED BLOOD CELL COUNT 3.88 mill/uL (4.2-5.4); RED CELL DISTRIBUTION WIDTH 25.2 % (11.6-14.6)
[2022-07-10 06:45] LABS: PHOSPHORUS 1.7 mg/dL (2.5-4.9); T4 FREE 0.85 ng/dL (0.76-1.46)
[2022-07-10] MEDS: NITROGLYCERIN OINT 1GM/INCH UDPKT TD SCH ×3 (07:59→21:02)
[2022-07-10] MEDS ORDERED: KCL 20MEQ/100ML PREMIX 100 ML IV SCH ×2 (08:00→16:00)
[2022-07-10] MEDS ORDERED: MAGNESIUM 2 G PREMIX 50 ML IV SCH (08:00)
[2022-07-10] MEDS: PANTOPRAZOLE SODIUM 40 MG/VIAL IV SCH ×2 (08:01→21:01)
[2022-07-10] MEDS: POLYETHYLENE GLYCOL 3350 (17GM) 1 DOSE PACK PO SCH (08:18)
[2022-07-10] MEDS: AMLODIPINE 2.5MG TABLET NG SCH ×2 (08:18→21:02)
[2022-07-10 08:37] LABS: BG BASE EXCESS 4.9 mmol/L (-2.0-2.0); BG CARBOXYHEMOGLOBIN 0.4 % (0.5-1.5); BG DEOXYHEMOGLOBIN 0.8 % (0.0-5.0); BG FRACTION INSPIRED OXYGEN 60; BG HCO3 ACT 27.3 mmol/L (22.0-26.0); BG METHEMOGLOBIN 0.8 % (0.0-1.5); BG OXYGEN SATURATION 99.2 % (92.0-98.5); BG PCO2 31.3 mmHg (35.0-45.0); BG PH 7.558 (7.350-7.450); BG PO2 198.1 mmHg (75.0-100.0); BG SAMPLE SITE RIGHT RADIAL; BG TOTAL HEMOGLOBIN 8.2 g/dL (12.0-18.0); BG VENT MODE VENT - AC
[2022-07-10] MEDS ORDERED: SODIUM PHOS,M-BASIC-D-BASIC 30 MM in DEXT 5% WATER 500 ML IV SCH (09:00)
[2022-07-10] MEDS ORDERED: VANCOMYCIN 750MG PMX (XELLIA) 150 ML IV SCH (12:00)
[2022-07-10 12:43] LABS: HEMATOCRIT 24.4 % (36.0-48.0); HEMOGLOBIN 7.3 g/dL (12.0-16.0); MEAN CORPUSCULAR VOLUME 67.2 fL (81.0-99.0); PLATELET 172 x1000/uL (130-400); RED BLOOD CELL COUNT 3.63 mill/uL (4.2-5.4); RED CELL DISTRIBUTION WIDTH 25.1 % (11.6-14.6)
[2022-07-10] MEDS: SODIUM CHLORIDE 0.9% 1,000 ML IV SCH (16:00)
[2022-07-10 19:59] LABS: HEMATOCRIT 28.8 % (36.0-48.0); HEMOGLOBIN 8.6 g/dL (12.0-16.0); MEAN CORPUSCULAR HEMOGLOBIN 21.3 pg (28.0-32.0); MEAN CORPUSCULAR VOLUME 71.5 fL (81.0-99.0); PLATELET 198 x1000/uL (130-400); RED BLOOD CELL COUNT 4.03 mill/uL (4.2-5.4)
[2022-07-10] MEDS: IRON SUCROSE COMPLEX 100 MG/5 ML ML IV SCH (21:15)
[2022-07-10] MEDS: METOCLOPRAMIDE HCL 10MG/2ML VIAL IV SCH (23:21)
[2022-07-11] VITALS (43 sets, daily range): BP systolic 113–161; BP diastolic 45–71
[2022-07-11] MEDS: IPRATROPIUM/ALBUTEROL 0.5-3(2.5)MG/3ML NEB HHN SCH ×4 (00:29→20:56)
[2022-07-11 06:27] LABS: HEMOGLOBIN. 8.9 g/dL (12.0-16.0); MEAN CORPUSCULAR HEMOGLOBIN 20.9 pg (28.0-32.0); MEAN CORPUSCULAR VOLUME 70.6 fL (81.0-99.0); MEAN PLATELET VOLUME 9.4 fl (7.4-10.4); PLATELET 188 x1000/uL (130-400); RED BLOOD CELL COUNT 4.25 mill/uL (4.2-5.4); RED CELL DISTRIBUTION WIDTH 27.2 % (11.6-14.6)
[2022-07-11] MEDS: METOCLOPRAMIDE HCL 10MG/2ML VIAL IV SCH ×2 (06:57→12:40)
[2022-07-11] MEDS: NITROGLYCERIN OINT 1GM/INCH UDPKT TD SCH ×3 (06:58→22:28)
[2022-07-11] MEDS: MIDAZOLAM HCL 100 MG in SODIUM CHLORIDE 0.9% 80 ML IV PRN (08:10)
[2022-07-11 08:30] LABS: BG BASE EXCESS 3.4 mmol/L (-2.0-2.0); BG CARBOXYHEMOGLOBIN 0.3 % (0.5-1.5); BG DEOXYHEMOGLOBIN 3.2 % (0.0-5.0); BG FRACTION INSPIRED OXYGEN 40; BG HCO3 ACT 26.7 mmol/L (22.0-26.0); BG METHEMOGLOBIN 0.3 % (0.0-1.5); BG OXYGEN SATURATION 96.8 % (92.0-98.5); BG OXYHEMOGLOBIN 96.2 % (94.0-97.0); BG PCO2 35.5 mmHg (35.0-45.0); BG PH 7.494 (7.350-7.450); BG PO2 86.8 mmHg (75.0-100.0); BG SAMPLE SITE RIGHT RADIAL; BG TOTAL HEMOGLOBIN 9.3 g/dL (12.0-18.0); BG VENT MODE VENT - AC
[2022-07-11] MEDS: POLYETHYLENE GLYCOL 3350 (17GM) 1 DOSE PACK PO SCH (09:56)
[2022-07-11] MEDS: PANTOPRAZOLE SODIUM 40 MG/VIAL IV SCH ×2 (09:56→20:38)
[2022-07-11] MEDS: AMLODIPINE 2.5MG TABLET NG SCH (09:56)
[2022-07-11] MEDS: DOCUSATE SODIUM SUGAR FREE 100MG/10ML UDC NG SCH (09:56)
[2022-07-11 09:57] LABS: PLATELET ESTIMATE NORMAL
[2022-07-11] MEDS ORDERED: KCL 20MEQ/100ML PREMIX 100 ML IV SCH (11:00)
[2022-07-11] MEDS ORDERED: CEFTRIAXONE 1 G PREMIX 50 ML IV SCH (11:30)
[2022-07-11] MEDS ORDERED: LEVOFLOXACIN 500MG PREMIX 100 ML IV SCH (13:00)
[2022-07-11] MEDS: KCL 20MEQ/100ML PREMIX 100 ML IV SCH ×2 (13:15→16:41)
[2022-07-11] MEDS: SODIUM CHLORIDE 0.9% 1,000 ML IV SCH (16:42)
[2022-07-11] MEDS: IRON SUCROSE COMPLEX 100 MG/5 ML ML IV SCH (20:38)
[2022-07-11] MEDS: FENTANYL 2500MCG/250ML PMX 250 ML IV PRN (23:49)
[2022-07-12] VITALS (52 sets, daily range): BP systolic 92–152; BP diastolic 42–88
[2022-07-12] MEDS: AMLODIPINE 2.5MG TABLET NG SCH ×3 (01:17→21:15)
[2022-07-12] MEDS: IPRATROPIUM/ALBUTEROL 0.5-3(2.5)MG/3ML NEB HHN SCH ×4 (01:38→20:26)
[2022-07-12] MEDS: MIDAZOLAM HCL 100 MG in SODIUM CHLORIDE 0.9% 80 ML IV PRN ×2 (02:01→16:06)
[2022-07-12 06:06] LABS: HEMATOCRIT. 28.4 % (36.0-48.0); HEMOGLOBIN. 8.6 g/dL (12.0-16.0); MEAN CORPUSCULAR HEMOGLOBIN 21.6 pg (28.0-32.0); MEAN CORPUSCULAR VOLUME 71.1 fL (81.0-99.0); MEAN PLATELET VOLUME 9.4 fl (7.4-10.4); PLATELET 178 x1000/uL (130-400); RED BLOOD CELL COUNT 3.99 mill/uL (4.2-5.4); RED CELL DISTRIBUTION WIDTH 27.1 % (11.6-14.6)
[2022-07-12] MEDS: NITROGLYCERIN OINT 1GM/INCH UDPKT TD SCH ×3 (07:30→22:46)
[2022-07-12] MEDS: DOCUSATE SODIUM SUGAR FREE 100MG/10ML UDC NG SCH (09:00)
[2022-07-12] MEDS: POLYETHYLENE GLYCOL 3350 (17GM) 1 DOSE PACK PO SCH (09:00)
[2022-07-12] MEDS ORDERED: FUROSEMIDE 20MG/2ML VIAL IVP NR (09:30)
[2022-07-12] MEDS: LEVOFLOXACIN 250MG PREMIX 50 ML IV SCH (11:36)
[2022-07-12] MEDS: PANTOPRAZOLE SODIUM 40 MG/VIAL IV SCH ×2 (11:37→20:57)
[2022-07-12] MEDS: METOCLOPRAMIDE HCL 10MG/2ML VIAL IV SCH ×2 (11:37→12:00)
[2022-07-12 12:51] LABS: PLATELET ESTIMATE NORMAL
[2022-07-12] MEDS: IRON SUCROSE COMPLEX 100 MG/5 ML ML IV SCH (20:57)
[2022-07-12] MEDS: QUETIAPINE FUMARATE 25MG TABLET PO SCH (21:17)
[2022-07-13] VITALS (51 sets, daily range): BP systolic 77–149; BP diastolic 32–79
[2022-07-13] MEDS: IPRATROPIUM/ALBUTEROL 0.5-3(2.5)MG/3ML NEB HHN SCH ×4 (01:20→20:34)
[2022-07-13 02:49] LABS: FOLIC ACID (FOLATE) SERUM 16.7 ng/mL (>5.38)
[2022-07-13 05:45] LABS: HEMATOCRIT. 32.4 % (36.0-48.0); HEMOGLOBIN. 9.4 g/dL (12.0-16.0); MEAN CORPUSCULAR HEMOGLOBIN 20.9 pg (28.0-32.0); MEAN CORPUSCULAR VOLUME 72.2 fL (81.0-99.0); MEAN PLATELET VOLUME 9.5 fl (7.4-10.4); PLATELET 216 x1000/uL (130-400); RED BLOOD CELL COUNT 4.48 mill/uL (4.2-5.4); RED CELL DISTRIBUTION WIDTH 27.5 % (11.6-14.6)
[2022-07-13] MEDS: NITROGLYCERIN OINT 1GM/INCH UDPKT TD SCH (06:44)
[2022-07-13 07:27] LABS: PLATELET ESTIMATE NORMAL
[2022-07-13 08:25] LABS: BG BASE EXCESS -0.8 mmol/L (-2.0-2.0); BG CARBOXYHEMOGLOBIN 0.2 % (0.5-1.5); BG DEOXYHEMOGLOBIN 2.2 % (0.0-5.0); BG FRACTION INSPIRED OXYGEN 40; BG HCO3 ACT 24.9 mmol/L (22.0-26.0); BG METHEMOGLOBIN 0.2 % (0.0-1.5); BG OXYGEN SATURATION 97.8 % (92.0-98.5); BG OXYHEMOGLOBIN 97.4 % (94.0-97.0); BG PCO2 46.3 mmHg (35.0-45.0); BG PH 7.349 (7.350-7.450); BG PO2 110.2 mmHg (75.0-100.0); BG SAMPLE SITE RIGHT RADIAL; BG TOTAL HEMOGLOBIN 9.7 g/dL (12.0-18.0); BG VENT MODE VENT - AC
[2022-07-13] MEDS: PANTOPRAZOLE SODIUM 40 MG/VIAL IV SCH ×2 (08:30→21:00)
[2022-07-13] MEDS: QUETIAPINE FUMARATE 25MG TABLET PO SCH ×2 (08:31→21:00)
[2022-07-13] MEDS: AMLODIPINE 2.5MG TABLET NG SCH (08:31)
[2022-07-13] MEDS: POLYETHYLENE GLYCOL 3350 (17GM) 1 DOSE PACK PO SCH (08:31)
[2022-07-13] MEDS: DOCUSATE SODIUM SUGAR FREE 100MG/10ML UDC NG SCH (08:32)
[2022-07-13] MEDS: FUROSEMIDE 20MG/2ML VIAL IVP SCH (11:08)
[2022-07-13] MEDS: LEVOFLOXACIN 250MG PREMIX 50 ML IV SCH (11:08)
[2022-07-13] MEDS: METOCLOPRAMIDE HCL 10MG/2ML VIAL IV SCH ×4 (11:10→23:53)
[2022-07-13] MEDS ORDERED: METOCLOPRAMIDE HCL 10MG/2ML VIAL IV SCH (14:00)
[2022-07-14] VITALS (79 sets, daily range): BP systolic 91–150; BP diastolic 40–81
[2022-07-14] MEDS: IPRATROPIUM/ALBUTEROL 0.5-3(2.5)MG/3ML NEB HHN SCH ×4 (02:25→20:36)
[2022-07-14 05:47] LABS: HEMATOCRIT. 29.8 % (36.0-48.0); HEMOGLOBIN. 8.9 g/dL (12.0-16.0); MEAN CORPUSCULAR HEMOGLOBIN 21.2 pg (28.0-32.0); MEAN CORPUSCULAR VOLUME 71.3 fL (81.0-99.0); MEAN PLATELET VOLUME 9.6 fl (7.4-10.4); PLATELET 248 x1000/uL (130-400); RED BLOOD CELL COUNT 4.18 mill/uL (4.2-5.4); RED CELL DISTRIBUTION WIDTH 27.5 % (11.6-14.6)
[2022-07-14] MEDS: METOCLOPRAMIDE HCL 10MG/2ML VIAL IV SCH ×4 (05:56→23:53)
[2022-07-14] MEDS: PANTOPRAZOLE SODIUM 40 MG/VIAL IV SCH ×2 (08:50→21:34)
[2022-07-14] MEDS: POLYETHYLENE GLYCOL 3350 (17GM) 1 DOSE PACK PO SCH (08:50)
[2022-07-14] MEDS: QUETIAPINE FUMARATE 25MG TABLET PO SCH (08:50)
[2022-07-14] MEDS: DOCUSATE SODIUM SUGAR FREE 100MG/10ML UDC NG SCH (08:50)
[2022-07-14] MEDS: FUROSEMIDE 20MG/2ML VIAL IVP SCH (08:51)
[2022-07-14 10:18] LABS: PLATELET ESTIMATE NORMAL
[2022-07-14] MEDS: MIDODRINE HCL 5MG TABLET NG SCH ×2 (11:57→21:33)
[2022-07-14] MEDS: LEVOFLOXACIN 250MG PREMIX 50 ML IV SCH (11:57)
[2022-07-15] VITALS (24 sets, daily range): BP systolic 126–174; BP diastolic 50–73
[2022-07-15] MEDS: IPRATROPIUM/ALBUTEROL 0.5-3(2.5)MG/3ML NEB HHN SCH ×4 (01:56→20:51)
[2022-07-15] MEDS: ACETYLCYSTEINE 100MG/ML 10% VIAL 4ML INH SCH ×4 (01:57→20:51)
[2022-07-15] MEDS: MIDODRINE HCL 5MG TABLET NG SCH ×3 (04:00→20:00)
[2022-07-15] MEDS: METOCLOPRAMIDE HCL 10MG/2ML VIAL IV SCH ×3 (05:20→18:00)
[2022-07-15 06:10] LABS: HEMATOCRIT. 30.2 % (36.0-48.0); MEAN CORPUSCULAR HEMOGLOBIN 21.2 pg (28.0-32.0); MEAN CORPUSCULAR VOLUME 71.4 fL (81.0-99.0); MEAN PLATELET VOLUME 9.4 fl (7.4-10.4); PLATELET 244 x1000/uL (130-400); RED BLOOD CELL COUNT 4.23 mill/uL (4.2-5.4); RED CELL DISTRIBUTION WIDTH 27.8 % (11.6-14.6)
[2022-07-15 08:30] LABS: BG CARBOXYHEMOGLOBIN 0.8 % (0.5-1.5); BG DEOXYHEMOGLOBIN 1.8 % (0.0-5.0); BG FRACTION INSPIRED OXYGEN 30; BG HCO3 ACT 27.2 mmol/L (22.0-26.0); BG METHEMOGLOBIN 0.5 % (0.0-1.5); BG OXYGEN SATURATION 98.2 % (92.0-98.5); BG OXYHEMOGLOBIN 96.9 % (94.0-97.0); BG PCO2 45.3 mmHg (35.0-45.0); BG PH 7.397 (7.350-7.450); BG PO2 108.6 mmHg (75.0-100.0); BG SAMPLE SITE RIGHT RADIAL; BG TOTAL HEMOGLOBIN 9.9 g/dL (12.0-18.0); BG TOTAL RESPIRATORY RATE 10 b/min; BG VENT MODE VENT - SIMV
[2022-07-15] MEDS: POLYETHYLENE GLYCOL 3350 (17GM) 1 DOSE PACK PO SCH (08:31)
[2022-07-15] MEDS: PANTOPRAZOLE SODIUM 40 MG/VIAL IV SCH ×3 (09:12→21:47)
[2022-07-15] MEDS: DOCUSATE SODIUM SUGAR FREE 100MG/10ML UDC NG SCH (09:12)
[2022-07-15 10:57] LABS: PLATELET ESTIMATE NORMAL
[2022-07-15] MEDS: SODIUM CHLORIDE 0.45% 1,000 ML IV SCH (11:00)
[2022-07-15] MEDS: LEVOFLOXACIN 250MG PREMIX 50 ML IV SCH (11:01)
[2022-07-15 13:35] LABS: BG BASE EXCESS 0.1 mmol/L (-2.0-2.0); BG CARBOXYHEMOGLOBIN 0.2 % (0.5-1.5); BG DEOXYHEMOGLOBIN 2.5 % (0.0-5.0); BG FRACTION INSPIRED OXYGEN 30; BG HCO3 ACT 25.9 mmol/L (22.0-26.0); BG METHEMOGLOBIN 0.5 % (0.0-1.5); BG OXYGEN SATURATION 97.5 % (92.0-98.5); BG OXYHEMOGLOBIN 96.8 % (94.0-97.0); BG PCO2 47.5 mmHg (35.0-45.0); BG PH 7.355 (7.350-7.450); BG PO2 105.2 mmHg (75.0-100.0); BG SAMPLE SITE RIGHT RADIAL; BG TOTAL HEMOGLOBIN 9.7 g/dL (12.0-18.0); BG TOTAL RESPIRATORY RATE 30 b/min; BG VENT MODE VENT - CPAP
[2022-07-15] MEDS: ACETAMINOPHEN 325MG TABLET PO PRN (21:48)
[2022-07-16] VITALS (26 sets, daily range): BP systolic 130–169; BP diastolic 50–115
[2022-07-16] MEDS: HYDRALAZINE 20MG/ML VIAL IV PRN ×2 (00:18→09:51)
[2022-07-16] MEDS: METOCLOPRAMIDE HCL 10MG/2ML VIAL IV SCH ×4 (00:18→18:00)
[2022-07-16] MEDS: SODIUM CHLORIDE 0.45% 1,000 ML IV SCH ×2 (00:48→15:06)
[2022-07-16] MEDS: IPRATROPIUM/ALBUTEROL 0.5-3(2.5)MG/3ML NEB HHN SCH ×4 (01:26→20:55)
[2022-07-16] MEDS: MIDODRINE HCL 5MG TABLET NG SCH (04:00)
[2022-07-16 06:22] LABS: HEMOGLOBIN. 9.8 g/dL (12.0-16.0); MEAN CORPUSCULAR HEMOGLOBIN 21.4 pg (28.0-32.0); MEAN CORPUSCULAR VOLUME 71.9 fL (81.0-99.0); MEAN PLATELET VOLUME 9.3 fl (7.4-10.4); PLATELET 270 x1000/uL (130-400); RED BLOOD CELL COUNT 4.59 mill/uL (4.2-5.4); RED CELL DISTRIBUTION WIDTH 28.5 % (11.6-14.6)
[2022-07-16 08:30] LABS: PLATELET ESTIMATE NORMAL
[2022-07-16] MEDS: ACETYLCYSTEINE 100MG/ML 10% VIAL 4ML INH SCH ×3 (08:52→20:55)
[2022-07-16] MEDS: DOCUSATE SODIUM SUGAR FREE 100MG/10ML UDC NG SCH (09:31)
[2022-07-16] MEDS: POLYETHYLENE GLYCOL 3350 (17GM) 1 DOSE PACK PO SCH (09:32)
[2022-07-16] MEDS: PANTOPRAZOLE SODIUM 40 MG/VIAL IV SCH ×2 (09:32→20:45)
[2022-07-16] MEDS: LEVOFLOXACIN 250MG PREMIX 50 ML IV SCH (10:04)
[2022-07-16] MEDS: AMLODIPINE 10MG TABLET PO SCH (12:50)
[2022-07-16] MEDS: ACETAMINOPHEN 325MG TABLET PO PRN (20:45)
[2022-07-17] VITALS (25 sets, daily range): BP systolic 93–162; BP diastolic 49–96
[2022-07-17] MEDS: IPRATROPIUM/ALBUTEROL 0.5-3(2.5)MG/3ML NEB HHN SCH ×4 (00:23→20:44)
[2022-07-17] MEDS: METOCLOPRAMIDE HCL 10MG/2ML VIAL IV SCH ×4 (05:25→18:15)
[2022-07-17] MEDS: ACETAMINOPHEN 325MG TABLET PO PRN (06:44)
[2022-07-17] MEDS: ACETYLCYSTEINE 100MG/ML 10% VIAL 4ML INH SCH ×2 (08:07→14:03)
[2022-07-17] MEDS ORDERED: FUROSEMIDE 20MG/2ML VIAL IVP NR (08:15)
[2022-07-17] MEDS: AMLODIPINE 10MG TABLET PO SCH (09:02)
[2022-07-17] MEDS: DOCUSATE SODIUM SUGAR FREE 100MG/10ML UDC NG SCH (09:02)
[2022-07-17] MEDS: PANTOPRAZOLE SODIUM 40 MG/VIAL IV SCH ×2 (09:02→20:36)
[2022-07-17] MEDS: POLYETHYLENE GLYCOL 3350 (17GM) 1 DOSE PACK PO SCH (09:02)
[2022-07-17] MEDS: LEVOFLOXACIN 250MG PREMIX 50 ML IV SCH (11:27)
[2022-07-18] VITALS (12 sets, daily range): BP systolic 100–141; BP diastolic 59–80
[2022-07-18] MEDS: IPRATROPIUM/ALBUTEROL 0.5-3(2.5)MG/3ML NEB HHN SCH ×4 (01:06→20:26)
[2022-07-18] MEDS: ACETYLCYSTEINE 100MG/ML 10% VIAL 4ML INH SCH ×3 (01:06→15:12)
[2022-07-18] MEDS: METOCLOPRAMIDE HCL 10MG/2ML VIAL IV SCH ×4 (06:00→17:25)
[2022-07-18] MEDS: PANTOPRAZOLE SODIUM 40 MG/VIAL IV SCH ×2 (09:00→22:57)
[2022-07-18] MEDS: POLYETHYLENE GLYCOL 3350 (17GM) 1 DOSE PACK PO SCH (09:00)
[2022-07-18] MEDS: AMLODIPINE 10MG TABLET PO SCH (09:00)
[2022-07-18] MEDS: DOCUSATE SODIUM SUGAR FREE 100MG/10ML UDC NG SCH (09:00)
[2022-07-18] MEDS: ACETAMINOPHEN 325MG TABLET PO PRN (09:01)
[2022-07-19 00:56] VITALS: BP 132/68
[2022-07-19] MEDS ORDERED: LEVOTHYROXINE SODIUM 100MCG TABLET PO SCH (07:30)
== END 2022-07-19 01:22 | DRG 207 ==
LOC: ER 14:09 → MICUSO 17:41 → ENRESERV 18:41 → EDBEDREQ 19:27 → EDBEDREQSVC 19:27 → EDBEDREQTM 19:27 → CVICU 07-09 07:22 → 5EST 07-17 15:28
PROVIDERS: ADMIT Internal Medicine; ATTEND Internal Medicine
PROC: 5A1955Z Respiratory Ventilation, Greater than 96 Consecutive Hours (ICD-10-PCS; 2022-07-08)
PROC: 0BH17EZ Insertion of Endotracheal Airway into Trachea, Via Natural or Artificial Opening (ICD-10-PCS; 2022-07-08)
PROC: 30233N1 Transfusion of Nonautologous Red Blood Cells into Peripheral Vein, Percutaneous Approach (ICD-10-PCS; principal; 2022-07-09)
DX: J96.01 Acute respiratory failure with hypoxia (principal); G93.41 Metabolic encephalopathy; I50.33 Acute on chronic diastolic (congestive) heart failure; I13.0 Hypertensive heart and chronic kidney disease with heart failure and stage 1 through stage 4 chronic kidney disease, or unspecified chronic kidney disease; E44.1 Mild protein-calorie malnutrition; E87.2 Acidosis; J84.9 Interstitial pulmonary disease, unspecified; N17.9 Acute kidney failure, unspecified; K56.50 Intestinal adhesions [bands], unspecified as to partial versus complete obstruction; Z99.11 Dependence on respirator [ventilator] status; E87.4 Mixed disorder of acid-base balance; J98.11 Atelectasis; J96.02 Acute respiratory failure with hypercapnia; I27.20 Pulmonary hypertension, unspecified; K59.03 Drug induced constipation; E11.22 Type 2 diabetes mellitus with diabetic chronic kidney disease; E78.5 Hyperlipidemia, unspecified; D50.9 Iron deficiency anemia, unspecified; E89.0 Postprocedural hypothyroidism; E87.6 Hypokalemia; I07.1 Rheumatic tricuspid insufficiency; I35.1 Nonrheumatic aortic (valve) insufficiency; J44.9 Chronic obstructive pulmonary disease, unspecified; N18.9 Chronic kidney disease, unspecified; D63.8 Anemia in other chronic diseases classified elsewhere; G40.909 Epilepsy, unspecified, not intractable, without status epilepticus; N28.1 Cyst of kidney, acquired; Z78.1 Physical restraint status; F10.129 Alcohol abuse with intoxication, unspecified; G89.29 Other chronic pain; R79.89 Other specified abnormal findings of blood chemistry; K21.9 Gastro-esophageal reflux disease without esophagitis; Z87.891 Personal history of nicotine dependence; Z79.891 Long term (current) use of opiate analgesic; Z88.0 Allergy status to penicillin; Z88.2 Allergy status to sulfonamides; Z88.8 Allergy status to other drugs, medicaments and biological substances; Z48.815 Encounter for surgical aftercare following surgery on the digestive system; Z68.27 Body mass index [BMI] 27.0-27.9, adult; H40.9 Unspecified glaucoma; K59.09 Other constipation; R13.10 Dysphagia, unspecified
CPT/HCPCS: 31500; 36415; 36600; 71045; 74177; 76700; 80048; 80053; 80061; 80076; 80305; 81003; 82270; 82375; 82607; 82728; 82746; 82805; 83036; 83540; 83550; 83605; 83735; 83880; 84100; 84145; 84439; 84443; 84484; 85025; 85027; 85044; 86850; 86900; 86920; 87070; 92610; 93005; 93306; 93880; 93970; 94002; 94003; 94640; 94660; 97162; 97166; 97530; 99291; C9113; J0360; J1940; J1956; J2250; J2704; J2765; J3010; J3370; J3475; J3480; J3490; J7030; J7050; J7060; J7608; P9016; Q9963; Q9967

== ENCOUNTER 2022-07-18 | Inpatient (IN) | payer MEDICARE, MEDICAID ==
[~2022-07-18] VITALS: Ht 162.6 cm; Wt 73.9 kg
[2022-07-19] VITALS: BP 133/67
[2022-07-19] MEDS ORDERED: HYDRALAZINE 20MG/ML VIAL IV PRN (01:30)
[2022-07-19] MEDS ORDERED: ONDANSETRON HCL 4MG/2ML INJ IV PRN (01:30)
[2022-07-19] MEDS ORDERED: MAGNESIUM/ALUMINUM HYDROXIDE/SIMETHICONE 30ML UDC PO PRN (01:30)
[2022-07-19] MEDS ORDERED: METOCLOPRAMIDE HCL 10MG/2ML VIAL IV SCH (06:00)
[2022-07-19] MEDS: METOCLOPRAMIDE HCL 10MG/2ML VIAL IV SCH ×3 (06:26→18:18)
[2022-07-19 06:31] LABS: CHLORIDE 97 mEq/L (98-107)
[2022-07-19 06:47] LABS: BASOPHILS % 1.3 % (0.0-2.0); EOSINOPHILS % 3.4 % (0.0-5.0); HEMATOCRIT. 36.6 % (36.0-48.0); HEMOGLOBIN. 10.7 g/dL (12.0-16.0); MEAN CORPUSCULAR HEMOGLOBIN 21.4 pg (28.0-32.0); MEAN CORPUSCULAR VOLUME 73.5 fL (81.0-99.0); MEAN PLATELET VOLUME 9.1 fl (7.4-10.4); MONOCYTES % 8.6 % (2.0-8.0); NEUTROPHILS % 75.7 % (40.0-76.0); PLATELET 304 x1000/uL (130-400); RED BLOOD CELL COUNT 4.98 mill/uL (4.2-5.4); RED CELL DISTRIBUTION WIDTH 28.3 % (11.6-14.6)
[2022-07-19] MEDS: LEVOTHYROXINE SODIUM 100MCG TABLET PO SCH (07:00)
[2022-07-19] MEDS: IPRATROPIUM/ALBUTEROL 0.5-3(2.5)MG/3ML NEB HHN SCH ×3 (07:29→19:42)
[2022-07-19] MEDS: ACETYLCYSTEINE 100MG/ML 10% VIAL 4ML INH SCH ×3 (07:29→16:53)
[2022-07-19 08:00] VITALS: BP 128/71
[2022-07-19] MEDS: POLYETHYLENE GLYCOL 3350 (17GM) 1 DOSE PACK PO SCH (09:00)
[2022-07-19] MEDS: DOCUSATE SODIUM SUGAR FREE 100MG/10ML UDC PO SCH (09:00)
[2022-07-19] MEDS ORDERED: DOCUSATE SODIUM SUGAR FREE 100MG/10ML UDC NG SCH (09:00)
[2022-07-19] MEDS: AMLODIPINE 10MG TABLET PO SCH (11:08)
[2022-07-19] MEDS: PANTOPRAZOLE SODIUM 40 MG/VIAL IV SCH ×2 (11:08→21:09)
[2022-07-19 19:59] VITALS: BP 128/77
[2022-07-20] MEDS: METOCLOPRAMIDE HCL 10MG/2ML VIAL IV SCH ×5 (00:15→23:50)
[2022-07-20] MEDS: IPRATROPIUM/ALBUTEROL 0.5-3(2.5)MG/3ML NEB HHN SCH ×4 (02:40→21:42)
[2022-07-20 06:01] LABS: CHLORIDE 97 mEq/L (98-107)
[2022-07-20] MEDS: LEVOTHYROXINE SODIUM 100MCG TABLET PO SCH (06:02)
[2022-07-20 06:13] LABS: BASOPHILS % 0.8 % (0.0-2.0); EOSINOPHILS % 2.2 % (0.0-5.0); HEMATOCRIT. 34.5 % (36.0-48.0); HEMOGLOBIN. 10.4 g/dL (12.0-16.0); LYMPHOCYTES % 9.8 % (20.0-50.0); MEAN CORPUSCULAR HEMOGLOBIN 21.5 pg (28.0-32.0); MEAN CORPUSCULAR VOLUME 71.4 fL (81.0-99.0); MEAN PLATELET VOLUME 9.4 fl (7.4-10.4); MONOCYTES % 6.7 % (2.0-8.0); NEUTROPHILS % 80.5 % (40.0-76.0); PLATELET 310 x1000/uL (130-400); RED BLOOD CELL COUNT 4.83 mill/uL (4.2-5.4); RED CELL DISTRIBUTION WIDTH 28.3 % (11.6-14.6)
[2022-07-20 06:18] LABS: TOTAL IRON BINDING CAPACITY 223 ug/dL (250-450)
[2022-07-20 06:36] LABS: FOLIC ACID (FOLATE) SERUM 14.6 ng/mL (>5.38)
[2022-07-20 08:00] VITALS: BP 154/69
[2022-07-20] MEDS: DOCUSATE SODIUM SUGAR FREE 100MG/10ML UDC PO SCH (08:20)
[2022-07-20] MEDS: PANTOPRAZOLE SODIUM 40 MG/VIAL IV SCH ×2 (08:20→20:33)
[2022-07-20] MEDS: POLYETHYLENE GLYCOL 3350 (17GM) 1 DOSE PACK PO SCH (08:20)
[2022-07-20] MEDS: AMLODIPINE 10MG TABLET PO SCH (08:20)
[2022-07-20] MEDS ORDERED: HYDRALAZINE 10 MG in SODIUM CHLORIDE 0.9% 49.5 ML IV PRN (09:45)
[2022-07-20 20:00] VITALS: BP 103/61
[2022-07-20] MEDS: ACETAMINOPHEN 325MG TABLET PO PRN (23:51)
[2022-07-21] MEDS: ACETYLCYSTEINE 100MG/ML 10% VIAL 4ML INH SCH ×5 (00:21→20:12)
[2022-07-21] MEDS: IPRATROPIUM/ALBUTEROL 0.5-3(2.5)MG/3ML NEB HHN SCH ×4 (01:40→20:11)
[2022-07-21 06:17] LABS: BASOPHILS % 1.3 % (0.0-2.0); EOSINOPHILS % 2.5 % (0.0-5.0); HEMATOCRIT. 31.7 % (36.0-48.0); HEMOGLOBIN. 9.7 g/dL (12.0-16.0); LYMPHOCYTES % 10.3 % (20.0-50.0); MEAN CORPUSCULAR HEMOGLOBIN 21.7 pg (28.0-32.0); MEAN PLATELET VOLUME 9.3 fl (7.4-10.4); MONOCYTES % 7.3 % (2.0-8.0); NEUTROPHILS % 78.6 % (40.0-76.0); PLATELET 273 x1000/uL (130-400); RED BLOOD CELL COUNT 4.46 mill/uL (4.2-5.4)
[2022-07-21] MEDS: LEVOTHYROXINE SODIUM 100MCG TABLET PO SCH (06:17)
[2022-07-21] MEDS: METOCLOPRAMIDE HCL 5MG TABLET PO SCH ×2 (06:22→11:42)
[2022-07-21 06:51] LABS: CHLORIDE 99 mEq/L (98-107)
[2022-07-21 07:17] LABS: T4 FREE 0.51 ng/dL (0.76-1.46)
[2022-07-21 08:00] VITALS: BP 130/59
[2022-07-21] MEDS: POLYETHYLENE GLYCOL 3350 (17GM) 1 DOSE PACK PO SCH (09:00)
[2022-07-21] MEDS: DOCUSATE SODIUM SUGAR FREE 100MG/10ML UDC PO SCH (09:00)
[2022-07-21] MEDS: AMLODIPINE 5MG TABLET PO SCH ×2 (09:08→16:54)
[2022-07-21] MEDS: PANTOPRAZOLE 40MG DR TABLET PO SCH ×2 (09:08→20:31)
[2022-07-21] MEDS: ACETAMINOPHEN 325MG TABLET PO PRN ×2 (13:33→21:26)
[2022-07-21 16:32] LABS: CLARITY URINE TURBID (CLEAR); COLOR URINE YELLOW (YELLOW); KETONES URINE NEGATIVE (NEGATIVE); LEUKOCYTE ESTERASE URINE 3+ (NEGATIVE); NITRITE URINE POSITIVE (NEGATIVE); OCCULT BLOOD URINE 2+ (NEGATIVE); PH URINE 6.5 (4.5-8.0); PROTEIN URINE 1+ (NEGATIVE); SPECIFIC GRAVITY URINE 1.004 (1.005-1.030); UROBILINOGEN URINE 0.2 E.U./dL (0.2-1.0)
[2022-07-21 20:00] VITALS: BP 121/53
[2022-07-21 21:10] LABS: PLATELET ESTIMATE NORMAL
[2022-07-22] MEDS: IPRATROPIUM/ALBUTEROL 0.5-3(2.5)MG/3ML NEB HHN SCH ×4 (00:21→21:51)
[2022-07-22] MEDS: LEVOTHYROXINE SODIUM 100MCG TABLET PO SCH (06:00)
[2022-07-22 06:51] LABS: HEMATOCRIT. 33.7 % (36.0-48.0); HEMOGLOBIN. 10.1 g/dL (12.0-16.0); MEAN CORPUSCULAR HEMOGLOBIN 21.6 pg (28.0-32.0); MEAN CORPUSCULAR VOLUME 72.1 fL (81.0-99.0); MEAN PLATELET VOLUME 9.3 fl (7.4-10.4); PLATELET 308 x1000/uL (130-400); RED BLOOD CELL COUNT 4.68 mill/uL (4.2-5.4)
[2022-07-22] MEDS: ACETYLCYSTEINE 100MG/ML 10% VIAL 4ML INH SCH ×2 (07:33→13:32)
[2022-07-22 08:00] VITALS: BP 119/56
[2022-07-22] MEDS: PANTOPRAZOLE 40MG DR TABLET PO SCH ×2 (08:25→20:54)
[2022-07-22] MEDS: AMLODIPINE 5MG TABLET PO SCH ×2 (08:25→16:15)
[2022-07-22] MEDS: DOCUSATE SODIUM SUGAR FREE 100MG/10ML UDC PO SCH (08:38)
[2022-07-22] MEDS: POLYETHYLENE GLYCOL 3350 (17GM) 1 DOSE PACK PO SCH (08:38)
[2022-07-22] MEDS ORDERED: DIPHENOXYLATE/ATROPINE 2.5/0.025MG TABLET PO PRN (09:00)
[2022-07-22] MEDS ORDERED: DIPHENOXYLATE/ATROPINE 2.5/0.025MG TABLET PO ONE (09:00)
[2022-07-22] MEDS ORDERED: DIPHENOXYLATE/ATROPINE 2.5/0.025MG TABLET PO NR (09:30)
[2022-07-22 10:42] LABS: NUCLEATED RED BLOOD CELLS 1 /100 WBC; PLATELET ESTIMATE NORMAL
[2022-07-22] MEDS ORDERED: LEVOFLOXACIN 500MG TABLET PO SCH (11:00)
[2022-07-22 20:00] VITALS: BP 119/49
[2022-07-22] MEDS: ACETAMINOPHEN 325MG TABLET PO PRN (22:46)
[2022-07-23] MEDS: ACETYLCYSTEINE 100MG/ML 10% VIAL 4ML INH SCH ×3 (01:49→17:00)
[2022-07-23] MEDS: IPRATROPIUM/ALBUTEROL 0.5-3(2.5)MG/3ML NEB HHN SCH ×5 (01:49→20:26)
[2022-07-23 06:22] LABS: CHLORIDE 100 mEq/L (98-107)
[2022-07-23] MEDS: LEVOTHYROXINE SODIUM 100MCG TABLET PO SCH (06:55)
[2022-07-23 07:16] LABS: BASOPHILS % 1.8 % (0.0-2.0); EOSINOPHILS % 3.2 % (0.0-5.0); HEMATOCRIT. 31.3 % (36.0-48.0); HEMOGLOBIN. 9.5 g/dL (12.0-16.0); LYMPHOCYTES % 9.6 % (20.0-50.0); MEAN CORPUSCULAR HEMOGLOBIN 21.5 pg (28.0-32.0); MEAN CORPUSCULAR VOLUME 71.1 fL (81.0-99.0); MEAN PLATELET VOLUME 9.6 fl (7.4-10.4); MONOCYTES % 6.8 % (2.0-8.0); NEUTROPHILS % 78.6 % (40.0-76.0); PLATELET 325 x1000/uL (130-400); RED CELL DISTRIBUTION WIDTH 28.2 % (11.6-14.6)
[2022-07-23 08:00] VITALS: BP 114/56
[2022-07-23] MEDS: PANTOPRAZOLE 40MG DR TABLET PO SCH ×2 (09:16→21:07)
[2022-07-23] MEDS: AMLODIPINE 5MG TABLET PO SCH ×2 (09:17→16:20)
[2022-07-23] MEDS: LEVOFLOXACIN 250MG TABLET PO SCH (11:53)
[2022-07-23 20:00] VITALS: BP 131/60
[2022-07-24] MEDS: ACETYLCYSTEINE 100MG/ML 10% VIAL 4ML INH SCH ×3 (02:06→13:21)
[2022-07-24] MEDS: IPRATROPIUM/ALBUTEROL 0.5-3(2.5)MG/3ML NEB HHN SCH ×3 (02:08→13:21)
[2022-07-24 05:34] LABS: HEMOGLOBIN. 9.9 g/dL (12.0-16.0); MEAN CORPUSCULAR HEMOGLOBIN 21.5 pg (28.0-32.0); MEAN PLATELET VOLUME 10.1 fl (7.4-10.4); PLATELET 394 x1000/uL (130-400); RED BLOOD CELL COUNT 4.59 mill/uL (4.2-5.4); RED CELL DISTRIBUTION WIDTH 28.5 % (11.6-14.6)
[2022-07-24] MEDS: LEVOTHYROXINE SODIUM 100MCG TABLET PO SCH (06:50)
[2022-07-24 08:00] VITALS: BP 132/59
[2022-07-24 08:12] LABS: FOLICLE STIMULATING HORMONE 14.7 mIU/mL (.); LUTEINIZING HORMONE 5.8 mIU/mL (.); PROLACTIN 7.5 ng/mL (4.8-23.3)
[2022-07-24] MEDS: AMLODIPINE 5MG TABLET PO SCH ×2 (09:19→16:57)
[2022-07-24] MEDS: PANTOPRAZOLE 40MG DR TABLET PO SCH ×2 (09:19→20:37)
[2022-07-24 10:10] LABS: PLATELET ESTIMATE NORMAL
[2022-07-24] MEDS: LEVOFLOXACIN 250MG TABLET PO SCH (10:19)
[2022-07-24 20:00] VITALS: BP 106/54
[2022-07-24] MEDS: CEFTRIAXONE 1,000 MG in DEXTROSE 5% WATER 50 ML IV SCH (20:38)
[2022-07-25 06:26] LABS: HEMATOCRIT. 33.8 % (36.0-48.0); HEMOGLOBIN. 10.1 g/dL (12.0-16.0); MEAN CORPUSCULAR HEMOGLOBIN 21.5 pg (28.0-32.0); MEAN CORPUSCULAR VOLUME 72.2 fL (81.0-99.0); MEAN PLATELET VOLUME 9.5 fl (7.4-10.4); PLATELET 418 x1000/uL (130-400); RED BLOOD CELL COUNT 4.69 mill/uL (4.2-5.4); RED CELL DISTRIBUTION WIDTH 28.5 % (11.6-14.6)
[2022-07-25] MEDS: LEVOTHYROXINE SODIUM 100MCG TABLET PO SCH (06:40)
[2022-07-25 07:08] LABS: CHLORIDE 105 mEq/L (98-107)
[2022-07-25 07:51] VITALS: BP 138/64
[2022-07-25] MEDS: IPRATROPIUM/ALBUTEROL 0.5-3(2.5)MG/3ML NEB HHN SCH ×3 (08:05→21:39)
[2022-07-25] MEDS: PANTOPRAZOLE 40MG DR TABLET PO SCH ×2 (09:50→20:24)
[2022-07-25] MEDS: AMLODIPINE 5MG TABLET PO SCH ×2 (09:51→17:46)
[2022-07-25] MEDS: ACETAMINOPHEN 325MG TABLET PO PRN (09:51)
[2022-07-25 11:44] LABS: PLATELET ESTIMATE INCREASED
[2022-07-25] MEDS: GUAIFENESIN-DM 200MG-20MG/10ML UDC PO PRN (14:04)
[2022-07-25] MEDS: CEFTRIAXONE 1,000 MG in DEXTROSE 5% WATER 50 ML IV SCH (17:46)
[2022-07-25 20:00] VITALS: BP 130/58
[2022-07-26] MEDS: IPRATROPIUM/ALBUTEROL 0.5-3(2.5)MG/3ML NEB HHN SCH ×4 (02:11→20:30)
[2022-07-26] MEDS: LEVOTHYROXINE SODIUM 100MCG TABLET PO SCH (05:22)
[2022-07-26 06:15] LABS: HEMATOCRIT. 34.3 % (36.0-48.0); HEMOGLOBIN. 10.2 g/dL (12.0-16.0); MEAN CORPUSCULAR HEMOGLOBIN 21.7 pg (28.0-32.0); MEAN CORPUSCULAR VOLUME 72.8 fL (81.0-99.0); MEAN PLATELET VOLUME 9.3 fl (7.4-10.4); PLATELET 389 x1000/uL (130-400); RED CELL DISTRIBUTION WIDTH 29.1 % (11.6-14.6)
[2022-07-26 06:58] LABS: CHLORIDE 103 mEq/L (98-107)
[2022-07-26 07:06] LABS: HEPATITIS B SURFACE ANTIGEN NEGATIVE
[2022-07-26 08:00] VITALS: BP 124/55
[2022-07-26] MEDS: AMLODIPINE 5MG TABLET PO SCH ×2 (08:24→17:25)
[2022-07-26] MEDS: PANTOPRAZOLE 40MG DR TABLET PO SCH ×2 (08:24→21:51)
[2022-07-26 13:49] LABS: PLATELET ESTIMATE NORMAL
[2022-07-26] MEDS: CEFTRIAXONE 1,000 MG in DEXTROSE 5% WATER 50 ML IV SCH (17:27)
[2022-07-26 20:00] VITALS: BP 102/47
[2022-07-27] MEDS: IPRATROPIUM/ALBUTEROL 0.5-3(2.5)MG/3ML NEB HHN SCH ×2 (01:50→20:55)
[2022-07-27 05:41] LABS: CHLORIDE 105 mEq/L (98-107)
[2022-07-27 06:29] LABS: HEMATOCRIT. 31.1 % (36.0-48.0); HEMOGLOBIN. 9.3 g/dL (12.0-16.0); MEAN CORPUSCULAR HEMOGLOBIN 21.9 pg (28.0-32.0); MEAN CORPUSCULAR VOLUME 73.3 fL (81.0-99.0); MEAN PLATELET VOLUME 9.9 fl (7.4-10.4); PLATELET 403 x1000/uL (130-400); RED BLOOD CELL COUNT 4.24 mill/uL (4.2-5.4)
[2022-07-27] MEDS: LEVOTHYROXINE SODIUM 100MCG TABLET PO SCH (07:07)
[2022-07-27 08:00] VITALS: BP 115/67
[2022-07-27] MEDS: PANTOPRAZOLE 40MG DR TABLET PO SCH ×2 (09:13→21:36)
[2022-07-27 09:17] LABS: PLATELET ESTIMATE SLIGHTLY INCREASED
[2022-07-27] MEDS: AMLODIPINE 5MG TABLET PO SCH ×2 (09:17→17:24)
[2022-07-27] MEDS: CEFTRIAXONE 1,000 MG in DEXTROSE 5% WATER 50 ML IV SCH (17:26)
[2022-07-27 20:00] VITALS: BP 130/72
[2022-07-27] MEDS: ACETAMINOPHEN 325MG TABLET PO PRN (21:36)
[2022-07-28] MEDS: IPRATROPIUM/ALBUTEROL 0.5-3(2.5)MG/3ML NEB HHN SCH ×4 (02:23→20:25)
[2022-07-28] MEDS: ACETAMINOPHEN 325MG TABLET PO PRN ×2 (04:33→13:42)
[2022-07-28] MEDS: GUAIFENESIN-DM 200MG-20MG/10ML UDC PO PRN (04:34)
[2022-07-28] MEDS: LEVOTHYROXINE SODIUM 100MCG TABLET PO SCH (06:19)
[2022-07-28 06:23] LABS: HEMATOCRIT. 31.5 % (36.0-48.0); HEMOGLOBIN. 9.5 g/dL (12.0-16.0); MEAN CORPUSCULAR VOLUME 72.7 fL (81.0-99.0); PLATELET 434 x1000/uL (130-400); RED BLOOD CELL COUNT 4.33 mill/uL (4.2-5.4)
[2022-07-28 08:00] VITALS: BP 121/53
[2022-07-28 08:52] LABS: PLATELET ESTIMATE SLIGHTLY INCREASED
[2022-07-28] MEDS: PANTOPRAZOLE 40MG DR TABLET PO SCH ×2 (09:09→20:39)
[2022-07-28] MEDS: AMLODIPINE 5MG TABLET PO SCH ×2 (09:09→16:48)
[2022-07-28 17:10] LABS: 25-HYDROXY VITAMIN D3 32 ng/mL (.)
[2022-07-28] MEDS: CEFTRIAXONE 1,000 MG in DEXTROSE 5% WATER 50 ML IV SCH (17:17)
[2022-07-28 20:00] VITALS: BP 121/74
[2022-07-29] MEDS: IPRATROPIUM/ALBUTEROL 0.5-3(2.5)MG/3ML NEB HHN SCH ×4 (01:18→12:00)
[2022-07-29] MEDS: LEVOTHYROXINE SODIUM 100MCG TABLET PO SCH (06:44)
[2022-07-29 08:00] VITALS: BP 137/63
[2022-07-29] MEDS: AMLODIPINE 5MG TABLET PO SCH ×2 (08:24→16:41)
[2022-07-29] MEDS: PANTOPRAZOLE 40MG DR TABLET PO SCH ×2 (08:24→20:11)
[2022-07-29] MEDS: ERGOCALCIFEROL 50000UNITS CAPSULE PO SCH (14:41)
[2022-07-29] MEDS ORDERED: IPRATROPIUM/ALBUTEROL 0.5-3(2.5)MG/3ML NEB HHN PRN (16:15)
[2022-07-29] MEDS: ACETAMINOPHEN 325MG TABLET PO PRN (20:10)
[2022-07-30] MEDS: ACETAMINOPHEN 325MG TABLET PO PRN ×3 (01:54→21:10)
[2022-07-30 06:00] VITALS: BP 140/70
[2022-07-30] MEDS: LEVOTHYROXINE SODIUM 100MCG TABLET PO SCH ×2 (06:05→09:50)
[2022-07-30 06:53] LABS: HEMATOCRIT. 32.4 % (36.0-48.0); HEMOGLOBIN. 9.7 g/dL (12.0-16.0); MEAN CORPUSCULAR HEMOGLOBIN 21.9 pg (28.0-32.0); MEAN CORPUSCULAR VOLUME 73.3 fL (81.0-99.0); MEAN PLATELET VOLUME 9.8 fl (7.4-10.4); PLATELET 435 x1000/uL (130-400); RED BLOOD CELL COUNT 4.43 mill/uL (4.2-5.4); RED CELL DISTRIBUTION WIDTH 30.7 % (11.6-14.6)
[2022-07-30 08:00] VITALS: BP 126/63
[2022-07-30] MEDS: PANTOPRAZOLE 40MG DR TABLET PO SCH ×2 (09:49→21:10)
[2022-07-30] MEDS: AMLODIPINE 5MG TABLET PO SCH (09:50)
[2022-07-30] MEDS: ERGOCALCIFEROL 50000UNITS CAPSULE PO SCH (09:50)
[2022-07-30 14:29] LABS: PLATELET ESTIMATE INCREASED
[2022-07-30] MEDS: AMLODIPINE 2.5MG TABLET PO SCH (18:08)
[2022-07-30 20:00] VITALS: BP 94/58
[2022-07-31] MEDS: LEVOTHYROXINE SODIUM 100MCG TABLET PO SCH (06:01)
[2022-07-31] MEDS: ACETAMINOPHEN 325MG TABLET PO PRN (06:01)
[2022-07-31 08:00] VITALS: BP 149/80
[2022-07-31] MEDS: PANTOPRAZOLE 40MG DR TABLET PO SCH (08:46)
[2022-07-31] MEDS: AMLODIPINE 2.5MG TABLET PO SCH (08:46)
[2022-07-31] MEDS ORDERED: AMLO10TA80 MT (09:22)
[2022-07-31] MEDS ORDERED: LEVO100T9 PO (09:22)
[2022-07-31] MEDS ORDERED: PANT40TA51 PO (09:24)
[2022-07-31 10:19] VITALS: BP 149/80
== END 2022-07-31 12:44 | disposition home health service (06) | DRG 70 ==
PROVIDERS: ADMIT Physical Medicine & Rehabilitation Spinal Cord Injury Medicine; ATTEND Internal Medicine
DX: G93.41 Metabolic encephalopathy (principal); E43 Unspecified severe protein-calorie malnutrition; I50.33 Acute on chronic diastolic (congestive) heart failure; J96.01 Acute respiratory failure with hypoxia; J96.02 Acute respiratory failure with hypercapnia; J18.9 Pneumonia, unspecified organism; J44.0 Chronic obstructive pulmonary disease with (acute) lower respiratory infection; N17.9 Acute kidney failure, unspecified; N39.0 Urinary tract infection, site not specified; I13.0 Hypertensive heart and chronic kidney disease with heart failure and stage 1 through stage 4 chronic kidney disease, or unspecified chronic kidney disease; E87.4 Mixed disorder of acid-base balance; E23.0 Hypopituitarism; R13.10 Dysphagia, unspecified; G40.909 Epilepsy, unspecified, not intractable, without status epilepticus; D50.9 Iron deficiency anemia, unspecified; F10.21 Alcohol dependence, in remission; R53.81 Other malaise; K59.09 Other constipation; R74.01 Elevation of levels of liver transaminase levels; E55.9 Vitamin D deficiency, unspecified; T40.605A Adverse effect of unspecified narcotics, initial encounter; N28.1 Cyst of kidney, acquired; N18.30 Chronic kidney disease, stage 3 unspecified; M51.36 Other intervertebral disc degeneration, lumbar region; M48.061 Spinal stenosis, lumbar region without neurogenic claudication; K21.9 Gastro-esophageal reflux disease without esophagitis; I27.20 Pulmonary hypertension, unspecified; E89.0 Postprocedural hypothyroidism; E87.8 Other disorders of electrolyte and fluid balance, not elsewhere classified; E87.6 Hypokalemia; K59.03 Drug induced constipation; M47.812 Spondylosis without myelopathy or radiculopathy, cervical region; E78.5 Hyperlipidemia, unspecified; E11.22 Type 2 diabetes mellitus with diabetic chronic kidney disease; E11.65 Type 2 diabetes mellitus with hyperglycemia; D63.8 Anemia in other chronic diseases classified elsewhere; D75.839 Thrombocytosis, unspecified; F06.34 Mood disorder due to known physiological condition with mixed features; B96.20 Unspecified Escherichia coli [E. coli] as the cause of diseases classified elsewhere; G89.29 Other chronic pain; Z87.891 Personal history of nicotine dependence; Z88.2 Allergy status to sulfonamides; Z79.891 Long term (current) use of opiate analgesic; Y92.89 Other specified places as the place of occurrence of the external cause; Z68.28 Body mass index [BMI] 28.0-28.9, adult; R26.9 Unspecified abnormalities of gait and mobility
CPT/HCPCS: 36415; 76770; 80048; 80053; 80076; 81003; 82024; 82140; 82306; 82533; 82607; 82728; 82746; 83001; 83002; 83540; 83550; 84134; 84146; 84439; 84443; 84481; 85025; 86705; 86709; 86803; 87015; 87045; 87077; 87186; 87340; 87427; 87449; 92523; 92610; 93970; 94640; 97110; 97112; 97116; 97162; 97166; 97530; 97535; C1893; C9113; J0696; J2765; J7060; J7608; J8597

== ENCOUNTER 2022-11-24 05:01 | Inpatient (IN) | payer MEDICARE, MEDICAID ==
[~2022-11-24] VITALS: Ht 162.6 cm; Wt 80.5 kg
[~2022-11-24 05:01] MED LIST changes: -LEVO50TA MT
[2022-11-24] MEDS ORDERED: IOHEXOL-350 100 ML BOTTLE ONE (06:13)
[2022-11-24] MEDS ORDERED: SODIUM CHLORIDE 0.9% 500 ML IV ONE (06:15)
[2022-11-24 06:18] LABS: BASOPHILS % 1.2 % (0.0-2.0); HEMATOCRIT. 36.4 % (36.0-48.0); HEMOGLOBIN. 11.9 g/dL (12.0-16.0); LYMPHOCYTES % 18.4 % (20.0-50.0); MEAN CORPUSCULAR HEMOGLOBIN 28.3 pg (28.0-32.0); MEAN CORPUSCULAR VOLUME 86.3 fL (81.0-99.0); MEAN PLATELET VOLUME 9.4 fl (7.4-10.4); MONOCYTES % 11.1 % (2.0-8.0); NEUTROPHILS % 66.3 % (40.0-76.0); PLATELET 145 x1000/uL (130-400); RED BLOOD CELL COUNT 4.22 mill/uL (4.2-5.4); RED CELL DISTRIBUTION WIDTH 13.9 % (11.6-14.6)
[2022-11-24 06:26] LABS: CHLORIDE 104 mEq/L (98-107)
[2022-11-24 06:34] LABS: ETHANOL BLOOD < 10 mg/dL
[2022-11-24 07:10] LABS: CLARITY URINE CLEAR (CLEAR); COLOR URINE YELLOW (YELLOW); KETONES URINE NEGATIVE (NEGATIVE); LEUKOCYTE ESTERASE URINE NEGATIVE (NEGATIVE); NITRITE URINE NEGATIVE (NEGATIVE); OCCULT BLOOD URINE NEGATIVE (NEGATIVE); PH URINE 6.5 (4.5-8.0); PROTEIN URINE NEGATIVE (NEGATIVE); SPECIFIC GRAVITY URINE 1.016 (1.005-1.030); UROBILINOGEN URINE 0.2 E.U./dL (0.2-1.0)
[2022-11-24] MEDS ORDERED: NA PHOS,M-B/NA PHOS,DI-BA ENEMA 118ML PR PRN (07:30)
[2022-11-24] MEDS ORDERED: DOCUSATE SODIUM 100MG CAPSULE PO PRN (07:30)
[2022-11-24] MEDS ORDERED: ACETAMINOPHEN 325MG TABLET PO PRN (07:30)
[2022-11-24] MEDS ORDERED: IPRATROPIUM/ALBUTEROL 0.5-3(2.5)MG/3ML NEB NEB PRN (07:30)
[2022-11-24] MEDS ORDERED: MAGNESIUM/ALUMINUM HYDROXIDE/SIMETHICONE 30ML UDC PO PRN (07:30)
[2022-11-24] MEDS ORDERED: KETOROLAC 15MG/ML VIAL IV PRN (07:30)
[2022-11-24] MEDS ORDERED: GUAIFENESIN 200MG/10ML SUGAR FREE UDC PO PRN (07:30)
[2022-11-24] MEDS ORDERED: ONDANSETRON HCL 4MG/2ML INJ IV PRN (07:30)
[2022-11-24] MEDS ORDERED: CLONIDINE 0.1MG TABLET PO PRN (07:30)
[2022-11-24] MEDS ORDERED: NITROGLYCERIN 0.4MG TABLET SL SL PRN (07:30)
[2022-11-24] MEDS: LEVOTHYROXINE SODIUM 112MCG TABLET PO SCH ×2 (07:50→11:17)
[2022-11-24 08:33] LABS: *AMPHETAMINES SCREEN URINE NEGATIVE (NEGATIVE); *BARBITURATES SCREEN URINE NEGATIVE (NEGATIVE); *BENZODIAZEPINES SCREEN URINE NEGATIVE (NEGATIVE); *COCAINE SCREEN URINE NEGATIVE (NEGATIVE); CANNABINOID URINE SCREEN NEGATIVE (NEGATIVE); METHADONE URINE SCREEN NEGATIVE (NEGATIVE); OPIATES URINE SCREEN NEGATIVE (NEGATIVE); PHENCYCLIDINE URINE SCREEN NEGATIVE (NEGATIVE)
[2022-11-24] MEDS: FERROUS SULFATE 300MG/5ML UDC PO SCH ×3 (09:00→17:58)
[2022-11-24 10:16] VITALS: BP 158/79
[2022-11-24 10:32] VITALS: BP 158/79
[2022-11-24] MEDS: ENOXAPARIN 30MG/0.3ML SYR SUBCUT SCH (11:16)
[2022-11-24] MEDS: ASCORBIC ACID 500 MG TABLET PO SCH ×2 (11:17→21:11)
[2022-11-24] MEDS: ASPIRIN 81MG EC TABLET PO SCH (11:17)
[2022-11-24] MEDS: ZINC SULFATE 220 MG ( 50 ) CAPSULE PO SCH (11:17)
[2022-11-24] MEDS: AMLODIPINE 10MG TABLET PO SCH (11:17)
[2022-11-24] MEDS: FAMOTIDINE 20MG TABLET PO SCH (11:17)
[2022-11-24 11:37] LABS: T4 FREE 1.1 ng/dL (0.76-1.46)
[2022-11-24 11:54] LABS: VITAMIN B12 SERUM 545 pg/mL (211-911)
[2022-11-24 11:55] LABS: FOLIC ACID (FOLATE) SERUM > 20.00 ng/mL (>5.38)
[2022-11-24 12:00] VITALS: BP 157/76
[2022-11-24] MEDS ORDERED: SODIUM CHLORIDE 0.9% 1,000 ML IV SCH (12:45)
[2022-11-24] MEDS ORDERED: SODIUM CHLORIDE 0.9% 1000ML BAG (SEPSIS BOLUS) IV NR (14:00)
[2022-11-24 16:00] VITALS: BP 148/69
[2022-11-24] MEDS ORDERED: CEFTRIAXONE 1 G PREMIX 50 ML IV SCH (16:45)
[2022-11-24] MEDS: CEFTRIAXONE 1,000 MG in DEXTROSE 5% WATER 50 ML IV SCH (17:58)
[2022-11-24] MEDS: FOLIC ACID 1MG TABLET PO SCH (17:58)
[2022-11-24] MEDS ORDERED: ALBUTEROL (0.083%) 2.5MG/3ML NEB HHN PRN (18:00)
[2022-11-24] MEDS ORDERED: IPRATROPIUM BROMIDE (0.02%) 0.5MG/2.5ML NEB HHN PRN (18:00)
[2022-11-24 20:00] VITALS: BP 131/67
[2022-11-24] MEDS ORDERED: ZOLPIDEM TARTRATE 5MG TABLET PO PRN (21:00)
[2022-11-24] MEDS: ATORVASTATIN CALCIUM 40MG TABLET PO SCH (21:11)
[2022-11-24 22:16] LABS: CREATINE KINASE MB FRACTION 1.5 ng/mL (0.5-3.6)
[2022-11-25] VITALS: BP 130/70
[2022-11-25 00:53] LABS: CREATINE KINASE MB FRACTION 1.4 ng/mL (0.5-3.6)
[2022-11-25 04:00] VITALS: BP 134/63
[2022-11-25] MEDS: LEVOTHYROXINE SODIUM 112MCG TABLET PO SCH (06:05)
[2022-11-25 07:19] LABS: BASOPHILS % 1.2 % (0.0-2.0); EOSINOPHILS % 3.7 % (0.0-5.0); HEMATOCRIT. 38.7 % (36.0-48.0); HEMOGLOBIN. 12.6 g/dL (12.0-16.0); LYMPHOCYTES % 17.9 % (20.0-50.0); MEAN CORPUSCULAR VOLUME 86.1 fL (81.0-99.0); MEAN PLATELET VOLUME 9.9 fl (7.4-10.4); NEUTROPHILS % 68.2 % (40.0-76.0); PLATELET 161 x1000/uL (130-400); RED BLOOD CELL COUNT 4.49 mill/uL (4.2-5.4); RED CELL DISTRIBUTION WIDTH 14.1 % (11.6-14.6)
[2022-11-25 07:22] LABS: CHLORIDE 107 mEq/L (98-107)
[2022-11-25 07:30] LABS: PHOSPHORUS 2.5 mg/dL (2.5-4.9)
[2022-11-25 08:00] VITALS: BP 148/63
[2022-11-25] MEDS: FERROUS SULFATE 300MG/5ML UDC PO SCH ×3 (08:52→17:36)
[2022-11-25] MEDS: ASPIRIN 81MG EC TABLET PO SCH (08:52)
[2022-11-25] MEDS: ZINC SULFATE 220 MG ( 50 ) CAPSULE PO SCH (08:52)
[2022-11-25] MEDS: ASCORBIC ACID 500 MG TABLET PO SCH ×2 (08:52→20:10)
[2022-11-25] MEDS: FOLIC ACID 1MG TABLET PO SCH (08:53)
[2022-11-25] MEDS: THIAMINE HCL 100MG TABLET PO SCH (08:53)
[2022-11-25] MEDS: ENOXAPARIN 30MG/0.3ML SYR SUBCUT SCH (08:53)
[2022-11-25] MEDS: FAMOTIDINE 20MG TABLET PO SCH (08:53)
[2022-11-25] MEDS: AMLODIPINE 10MG TABLET PO SCH (08:53)
[2022-11-25 12:42] VITALS: BP 138/98
[2022-11-25 16:00] VITALS: BP_SYST 124; BP_SYST 128; BP_SYST 135; BP_DIAS 60; BP_DIAS 65; BP_DIAS 68
[2022-11-25] MEDS: CEFTRIAXONE 1,000 MG in DEXTROSE 5% WATER 50 ML IV SCH (17:36)
[2022-11-25 20:00] VITALS: BP_SYST 129; BP_SYST 130; BP_DIAS 55; BP_DIAS 59
[2022-11-25] MEDS: ATORVASTATIN CALCIUM 40MG TABLET PO SCH (20:10)
[2022-11-25] MEDS: ACETAMINOPHEN 325MG TABLET PO PRN (22:05)
[2022-11-26] VITALS: BP 122/57
[2022-11-26 04:00] VITALS: BP 132/61
[2022-11-26] MEDS: LEVOTHYROXINE SODIUM 112MCG TABLET PO SCH (05:38)
[2022-11-26 08:00] VITALS: BP 127/65
[2022-11-26] MEDS: ASCORBIC ACID 500 MG TABLET PO SCH ×2 (08:33→21:09)
[2022-11-26] MEDS: ZINC SULFATE 220 MG ( 50 ) CAPSULE PO SCH (08:33)
[2022-11-26] MEDS: FAMOTIDINE 20MG TABLET PO SCH (08:33)
[2022-11-26] MEDS: FERROUS SULFATE 300MG/5ML UDC PO SCH ×3 (08:33→17:42)
[2022-11-26] MEDS: ASPIRIN 81MG EC TABLET PO SCH (08:33)
[2022-11-26] MEDS: FOLIC ACID 1MG TABLET PO SCH (08:33)
[2022-11-26] MEDS: THIAMINE HCL 100MG TABLET PO SCH (08:33)
[2022-11-26] MEDS: AMLODIPINE 10MG TABLET PO SCH (08:34)
[2022-11-26] MEDS: ENOXAPARIN 30MG/0.3ML SYR SUBCUT SCH (08:35)
[2022-11-26 12:00] VITALS: BP 138/65
[2022-11-26 16:00] VITALS: BP 110/44
[2022-11-26] MEDS: CEFTRIAXONE 1,000 MG in DEXTROSE 5% WATER 50 ML IV SCH (17:43)
[2022-11-26 20:00] VITALS: BP 100/58
[2022-11-26] MEDS: ATORVASTATIN CALCIUM 40MG TABLET PO SCH (21:09)
[2022-11-27] VITALS: BP 115/63
[2022-11-27 04:00] VITALS: BP 142/70
[2022-11-27] MEDS: FERROUS SULFATE 300MG/5ML UDC PO SCH ×3 (06:14→17:37)
[2022-11-27] MEDS: LEVOTHYROXINE SODIUM 112MCG TABLET PO SCH (06:14)
[2022-11-27 07:55] VITALS: BP 123/67
[2022-11-27] MEDS: ZINC SULFATE 220 MG ( 50 ) CAPSULE PO SCH (08:24)
[2022-11-27] MEDS: ASPIRIN 81MG EC TABLET PO SCH (08:24)
[2022-11-27] MEDS: FAMOTIDINE 20MG TABLET PO SCH (08:24)
[2022-11-27] MEDS: THIAMINE HCL 100MG TABLET PO SCH (08:24)
[2022-11-27] MEDS: FOLIC ACID 1MG TABLET PO SCH (08:24)
[2022-11-27] MEDS: ASCORBIC ACID 500 MG TABLET PO SCH ×2 (08:25→21:26)
[2022-11-27] MEDS: AMLODIPINE 10MG TABLET PO SCH (08:25)
[2022-11-27] MEDS: ENOXAPARIN 30MG/0.3ML SYR SUBCUT SCH (08:25)
[2022-11-27 12:00] VITALS: BP 115/54
[2022-11-27 16:00] VITALS: BP 117/72
[2022-11-27] MEDS: ACETAMINOPHEN 325MG TABLET PO PRN (16:41)
[2022-11-27] MEDS: CEFTRIAXONE 1,000 MG in DEXTROSE 5% WATER 50 ML IV SCH (17:37)
[2022-11-27 20:00] VITALS: BP 135/73
[2022-11-27] MEDS: ATORVASTATIN CALCIUM 40MG TABLET PO SCH (21:25)
[2022-11-28] VITALS: BP 147/62
[2022-11-28 04:00] VITALS: BP 151/72
[2022-11-28] MEDS: FERROUS SULFATE 300MG/5ML UDC PO SCH ×2 (06:02→13:03)
[2022-11-28] MEDS: LEVOTHYROXINE SODIUM 112MCG TABLET PO SCH (06:02)
[2022-11-28 08:00] VITALS: BP 118/78
[2022-11-28] MEDS: AMLODIPINE 10MG TABLET PO SCH (09:29)
[2022-11-28] MEDS: FOLIC ACID 1MG TABLET PO SCH (09:29)
[2022-11-28] MEDS: ZINC SULFATE 220 MG ( 50 ) CAPSULE PO SCH (09:29)
[2022-11-28] MEDS: ASPIRIN 81MG EC TABLET PO SCH (09:30)
[2022-11-28] MEDS: ASCORBIC ACID 500 MG TABLET PO SCH (09:30)
[2022-11-28] MEDS: THIAMINE HCL 100MG TABLET PO SCH (09:30)
[2022-11-28] MEDS: FAMOTIDINE 20MG TABLET PO SCH (09:30)
[2022-11-28] MEDS: ENOXAPARIN 30MG/0.3ML SYR SUBCUT SCH (09:31)
[2022-11-28 12:07] VITALS: BP 118/78
[2022-11-29 17:09] LABS: 25-HYDROXY VITAMIN D3 28 ng/mL (.)
== END 2022-11-28 14:00 | disposition home or self-care (01) | DRG 871 ==
LOC: ER 05:01 → 7EST 07:05 → EDBEDREQ 07:09 → SUPCPDRO 07:21
PROVIDERS: ADMIT Internal Medicine; ATTEND Internal Medicine
DX: A41.9 Sepsis, unspecified organism (principal); G92.8 Other toxic encephalopathy; E87.20 Acidosis, unspecified; G45.9 Transient cerebral ischemic attack, unspecified; J44.9 Chronic obstructive pulmonary disease, unspecified; R65.20 Severe sepsis without septic shock; E03.9 Hypothyroidism, unspecified; I10 Essential (primary) hypertension; E11.42 Type 2 diabetes mellitus with diabetic polyneuropathy; E78.00 Pure hypercholesterolemia, unspecified; Z87.891 Personal history of nicotine dependence; Z79.4 Long term (current) use of insulin; Z88.2 Allergy status to sulfonamides; Z88.0 Allergy status to penicillin
CPT/HCPCS: 36415; 70496; 70498; 70551; 71045; 80053; 80061; 80305; 80320; 81003; 82140; 82306; 82550; 82553; 82607; 82746; 82962; 83036; 83540; 83550; 83605; 83735; 83880; 84100; 84145; 84439; 84443; 84484; 85025; 92523; 92610; 93005; 93970; 97162; 97166; 97535; 99285; J0696; J1650; J7030; J7060; Q9967; G0480

== ENCOUNTER 2022-12-10 10:03 | Emergency (ER) | payer MEDICARE, MEDICAID ==
[~2022-12-10] VITALS: Ht 165.1 cm; Wt 91.0 kg
[2022-12-10 10:07] VITALS: BP 119/64
[2022-12-10] MEDS ORDERED: ACETAMINOPHEN 325MG TABLET PO ONE (10:45)
[2022-12-10 13:01] LABS: CHLORIDE 107 mEq/L (98-107)
[2022-12-10 13:02] LABS: BASOPHILS % 1.2 % (0.0-2.0); EOSINOPHILS % 3.9 % (0.0-5.0); HEMATOCRIT. 39.7 % (36.0-48.0); HEMOGLOBIN. 12.7 g/dL (12.0-16.0); LYMPHOCYTES % 17.8 % (20.0-50.0); MEAN CORPUSCULAR VOLUME 87.2 fL (81.0-99.0); MONOCYTES % 7.4 % (2.0-8.0); NEUTROPHILS % 69.7 % (40.0-76.0); PLATELET 191 x1000/uL (130-400); RED BLOOD CELL COUNT 4.56 mill/uL (4.2-5.4); RED CELL DISTRIBUTION WIDTH 14.7 % (11.6-14.6)
[2022-12-10 13:19] LABS: ETHANOL BLOOD < 10 mg/dL
[2022-12-10] MEDS ORDERED: TOPUD MT (15:37)
[2022-12-10] MEDS ORDERED: ACETAMINOPHEN 325MG TABLET PO NR (16:30)
== END 2022-12-10 16:30 | disposition home or self-care (01) ==
LOC: ER 10:24
DX: R42 Dizziness and giddiness (principal); I10 Essential (primary) hypertension; D64.9 Anemia, unspecified; J44.9 Chronic obstructive pulmonary disease, unspecified; H40.9 Unspecified glaucoma; E89.0 Postprocedural hypothyroidism; M19.90 Unspecified osteoarthritis, unspecified site; Z88.0 Allergy status to penicillin; Z88.8 Allergy status to other drugs, medicaments and biological substances; Z91.013 Allergy to seafood
CPT/HCPCS: 36415; 71045; 80053; 80320; 82140; 83880; 84443; 84484; 85025; 93005; 99285; G0480

== ENCOUNTER 2023-05-09 15:34 | Emergency (ER) | payer MEDICARE, MEDICAID ==
[~2023-05-09 15:34] MED LIST changes: +TOPUD MT
== END 2023-05-09 16:02 | disposition left against medical advice (07) ==
LOC: ER 15:34
DX: Z53.21 Procedure and treatment not carried out due to patient leaving prior to being seen by health care provider (principal)

== ENCOUNTER 2024-11-07 10:54 | Emergency (ER) | payer MEDICARE, MEDICAID ==
[~2024-11-07] VITALS: Ht 167.6 cm; Wt 91.0 kg
[~2024-11-07 10:54] MED LIST changes: +LIDO700A30 TP; +P20 MT
[2024-11-07 10:59] VITALS: O2SAT 87
[2024-11-07 11:14] VITALS: BP 132/47; PULSE 89; RESP 18; TEMP 98.1; O2SAT 97
== END 2024-11-07 15:43 | disposition left against medical advice (07) ==
LOC: ER 10:54
DX: Z00.00 Encounter for general adult medical examination without abnormal findings (principal); Z53.21 Procedure and treatment not carried out due to patient leaving prior to being seen by health care provider
CPT/HCPCS: 93971

== ENCOUNTER 2025-06-19 11:32 | Emergency (ER) | payer MEDICARE, MEDICAID ==
[~2025-06-19] VITALS: Ht 167.6 cm; Wt 85.0 kg
[~2025-06-19 11:32] MED LIST changes: -AMLO10TA80 MT; -HYDR-4001 MT; -LIDO700A30 TP; -MELO15TA13 PO
[2025-06-19 11:36] VITALS: O2SAT 94
[2025-06-19 12:04] LABS: BASOPHILS % 1.6 % (0.0-2.0); EOSINOPHILS % 2.6 % (0.0-5.0); HEMATOCRIT. 24.2 % (36.0-48.0); HEMOGLOBIN. 7.2 g/dL (12.0-16.0); LYMPHOCYTES % 23.1 % (20.0-50.0); MEAN PLATELET VOLUME 10.0 fl (7.4-10.4); MONOCYTES % 10.9 % (2.0-8.0); NEUTROPHILS % 61.8 % (40.0-76.0); PLATELET 256 x1000/uL (130-400); RED BLOOD CELL COUNT 3.65 mill/uL (4.2-5.4); RED CELL DISTRIBUTION WIDTH 21.0 % (11.6-14.6)
[2025-06-19 12:05] LABS: ADD RBC MORPHOLOGY YES
[2025-06-19 12:20] LABS: UREA NITROGEN BLOOD 22.0 mg/dL (9-23)
[2025-06-19] MEDS: IBUPROFEN 600MG TABLET PO ONE (12:34)
[2025-06-19 13:02] LABS: CREATININE 1.4 mg/dL (0.6-1.0)
[2025-06-19 13:17] LABS: PLATELET ESTIMATE NORMAL
[2025-06-19] MEDS ORDERED: IBUP-2029 MT (15:00)
[2025-06-19] MEDS ORDERED: CEPH500C2 MT (15:00)
[2025-06-19 15:35] VITALS: BP 132/59; PULSE 73; RESP 18; TEMP 36.7; O2SAT 98
== END 2025-06-19 16:08 | disposition home or self-care (01) ==
LOC: ER 11:32
DX: L03.115 Cellulitis of right lower limb (principal); D64.9 Anemia, unspecified; J44.89 Other specified chronic obstructive pulmonary disease; I10 Essential (primary) hypertension; Z88.2 Allergy status to sulfonamides; Z88.0 Allergy status to penicillin; Z79.899 Other long term (current) drug therapy; Z98.890 Other specified postprocedural states
CPT/HCPCS: 36415; 80048; 85025; 93971; 99284

== ENCOUNTER 2025-07-14 09:10 | Emergency (ER) | payer MEDICARE, MEDICAID ==
[~2025-07-14] VITALS: Ht 160 cm; Wt 73.0 kg
[~2025-07-14 09:10] MED LIST changes: +CEPH500C2 MT; +IBUP-1455 MT
[2025-07-14 09:59] LABS: BASOPHILS % 2.2 % (0.0-2.0); EOSINOPHILS % 5.2 % (0.0-5.0); HEMATOCRIT. 27.4 % (36.0-48.0); HEMOGLOBIN. 7.9 g/dL (12.0-16.0); LYMPHOCYTES % 25.4 % (20.0-50.0); MEAN PLATELET VOLUME 9.7 fl (7.4-10.4); MONOCYTES % 11.9 % (2.0-8.0); NEUTROPHILS % 55.3 % (40.0-76.0); PLATELET 193 x1000/uL (130-400); RED BLOOD CELL COUNT 3.99 mill/uL (4.2-5.4); RED CELL DISTRIBUTION WIDTH 24.1 % (11.6-14.6)
[2025-07-14 10:03] LABS: ADD RBC MORPHOLOGY YES
[2025-07-14 10:15] LABS: CREATININE 1.3 mg/dL (0.6-1.0); TROPONIN I HIGH SENSITIVITY 11 ng/L (3.0-34)
[2025-07-14 10:16] LABS: UREA NITROGEN BLOOD 17 mg/dL (9-23)
[2025-07-14 10:17] LABS: ASPARTATE AMINOTRANSFERASE 18 IU/L (<34)
[2025-07-14 10:18] LABS: BILIRUBIN DIRECT 0.1 mg/dL (<=3.0); BILIRUBIN TOTAL 0.4 mg/dL (0.1-1.0); PROTEIN TOTAL 6.8 g/dL (6.0-8.3)
[2025-07-14 10:26] LABS: PLATELET ESTIMATE NORMAL
[2025-07-14] MEDS: SODIUM CHLORIDE 0.9% 1,000 ML IV ONE (10:27)
[2025-07-14] MEDS: DOXYCYCLINE HYCLATE 100MG CAPSULE PO ONE (11:55)
[2025-07-14] MEDS: ALBUTEROL (0.5%) 2.5MG/0.5ML NEB HHN ONE (12:02)
[2025-07-14 12:05] LABS: TROPONIN I HIGH SENSITIVITY 12 ng/L (3.0-34)
[2025-07-14 12:12] VITALS: PULSE 73; RESP 16; O2SAT 97
[2025-07-14] MEDS ORDERED: DOXY100C5 MT (12:48)
[2025-07-14 16:52] VITALS: BP 114/76; PULSE 80; RESP 19; TEMP 36.9; O2SAT 98
== END 2025-07-14 16:54 | disposition home or self-care (01) ==
LOC: ER 09:10 → CANBEDREQ 13:05 → ER 16:54
DX: R55 Syncope and collapse (principal); R42 Dizziness and giddiness; J18.9 Pneumonia, unspecified organism; I10 Essential (primary) hypertension; J44.0 Chronic obstructive pulmonary disease with (acute) lower respiratory infection; Z98.890 Other specified postprocedural states; Z79.890 Hormone replacement therapy; Z79.899 Other long term (current) drug therapy; Z88.0 Allergy status to penicillin; Z91.013 Allergy to seafood; Z88.2 Allergy status to sulfonamides
CPT/HCPCS: 99285; 96360; 71045; 80076; 80048; 83735; 85025; 84484; 36415; 94640; 93005; J7030; 94070

== ENCOUNTER 2025-09-10 16:14 | Emergency (ER) | payer MEDICARE, MEDICAID ==
[~2025-09-10] VITALS: Ht 160 cm; Wt 59.0 kg
[~2025-09-10 16:14] MED LIST changes: +DOXY100C5 MT
[2025-09-10 16:17] VITALS: O2SAT 97
[2025-09-10 17:03] LABS: BASOPHILS % 1.7 % (0.0-2.0); EOSINOPHILS % 7.2 % (0.0-5.0); HEMATOCRIT. 27.8 % (36.0-48.0); HEMOGLOBIN. 8.3 g/dL (12.0-16.0); LYMPHOCYTES % 24.6 % (20.0-50.0); MEAN PLATELET VOLUME 9.7 fl (7.4-10.4); MONOCYTES % 10.3 % (2.0-8.0); NEUTROPHILS % 56.2 % (40.0-76.0); PLATELET 217 x1000/uL (130-400); RED BLOOD CELL COUNT 3.96 mill/uL (4.2-5.4); RED CELL DISTRIBUTION WIDTH 22.4 % (11.6-14.6)
[2025-09-10 17:04] LABS: ADD RBC MORPHOLOGY YES
[2025-09-10 17:16] LABS: CREATININE 1.3 mg/dL (0.6-1.0); INR 1.0; UREA NITROGEN BLOOD 14 mg/dL (9-23)
[2025-09-10 17:17] LABS: TROPONIN I HIGH SENSITIVITY 10 ng/L (3.0-34)
[2025-09-10 17:18] LABS: ASPARTATE AMINOTRANSFERASE 22 IU/L (<34)
[2025-09-10 17:19] LABS: BILIRUBIN DIRECT < 0.1 mg/dL (<=3.0); BILIRUBIN TOTAL 0.2 mg/dL (0.1-1.0); PROTEIN TOTAL 6.8 g/dL (6.0-8.3)
[2025-09-10] MEDS: ACETAMINOPHEN 325MG TABLET PO NR (17:43)
[2025-09-10 17:45] LABS: PLATELET ESTIMATE NORMAL
[2025-09-10 19:31] LABS: CLARITY URINE CLEAR (CLEAR); COLOR URINE YELLOW (YELLOW); GLUCOSE URINE NEGATIVE (NEGATIVE); KETONES URINE NEGATIVE (NEGATIVE); NITRITE URINE NEGATIVE (NEGATIVE); OCCULT BLOOD URINE NEGATIVE (NEGATIVE); PH URINE 6.5 (4.5-8.0); PROTEIN URINE NEGATIVE (NEGATIVE); SPECIFIC GRAVITY URINE 1.007 (1.005-1.030)
[2025-09-10 19:32] LABS: LEUKOCYTE ESTERASE URINE NEGATIVE (NEGATIVE); UROBILINOGEN URINE 0.2 E.U./dL (0.2-1.0)
[2025-09-10 20:20] VITALS: BP 160/53; PULSE 65; RESP 18; TEMP 36.8; O2SAT 97
== END 2025-09-10 22:00 | disposition home or self-care (01) ==
LOC: ER 16:14 → EDBEDREQ 16:35 → ER 22:00 → CMPBEDREQ 09-11 07:29
DX: D64.9 Anemia, unspecified (principal); R42 Dizziness and giddiness; J44.89 Other specified chronic obstructive pulmonary disease; I10 Essential (primary) hypertension; Z79.890 Hormone replacement therapy; Z79.01 Long term (current) use of anticoagulants; Z79.899 Other long term (current) drug therapy; Z88.0 Allergy status to penicillin; Z88.2 Allergy status to sulfonamides; Z91.013 Allergy to seafood
CPT/HCPCS: 36415; 71045; 80048; 80076; 81003; 84484; 85025; 86850; 86900; 93005; 99284; A4606